=== PATIENT | male | born 1955 | race Caucasian/White ===

== ENCOUNTER 2018-03-06 07:50 | Outpatient (CLI) | payer OTHER | END 2018-03-06 07:51 | disposition home or self-care (01) | LOC: BICCT 07:50 | PROVIDERS: ATTEND Nurse Practitioner Family | DX: R31.9 Hematuria, unspecified (principal); R10.9 Unspecified abdominal pain; Q63.1 Lobulated, fused and horseshoe kidney; K76.89 Other specified diseases of liver | CPT/HCPCS: 74176 ==

== ENCOUNTER 2018-12-12 09:26 | Emergency (ER) | payer MEDICARE ==
[2018-12-12 10:02] LABS: #Basophils 0.1 thou/uL (0.0-0.2); #Eosinphils 0.4 thou/uL (0.0-0.7); #Lymphocytes 1.4 thou/uL (1.20-3.40); #Monocytes 0.9 thou/uL (0.11-0.59); #Neutrophils 5.8 thou/uL (1.40-6.50); %Basophils 0.7 % (0.0-1.0); %Eosinophils 4.2 % (0.0-10.0); %Monocytes 10.7 % (0.0-10.0); %Neutrophils 68.4 % (42.0-75.0); Hemoglobin 15.4 g/dL (14.0-18.0); Mean Corpuscular HGB CONC 33.4 g/dL (32.0-36.0); Mean Corpuscular Hemoglobin 30.4 pg (27.0-31.0); Mean Corpuscular Volume 90.8 fL (78.0-98.0); Mean Platelet Volume 7.5 fL (7.4-10.4); Platelet Count 254 thou/uL (130-400); RBC Distribution Width 11.6 % (11.5-14.5); Red Blood Cell (RBC) Count 5.09 mill/uL (4.70-6.10); White Blood Cell (WBC) Count 8.5 thou/uL (4.8-10.8)
[2018-12-12 10:12] LABS: Anion Gap 13 mmol/L (10-20); BUN (Urea Nitrogen) 9 mg/dL (8.4-25.7); Calc. Creatinine Clearance 0 mL/min (70-130); Calcium 9.9 mg/dL (7.8-10.44); Carbon Dioxide 26 mmol/L (23-31); Chloride 105 mmol/L (98-107); Estimated GFR-MDRD Greater than 90; Glucose 84 mg/dL (80-115); Potassium 4.2 mmol/L (3.5-5.1); Sodium 140 mmol/L (136-145)
[2018-12-12] MEDS ORDERED: Clindamycin 300 MG/2 ML VIAL ONE (10:21)
--- NOTE | 2018-12-12 10:31 | ULT ---
LEFT LOWER EXTREMITY VENOUS DUPEX ULTRASOUND INCLUDING COLOR AND SPECTRAL DOPPLER IMAGING: HISTORY: Left leg pain. TECHNIQUE: Exam performed from groin to ankle, including visualized greater saphenous, common femoral, superfici al femoral, profunda femoral, trifurcation, and posterior tibial vein regions. FINDINGS: Some incidental left groin lymph nodes are noted. There is phasic flow at all levels with normal com pressibility and normal augmentation. IMPRESSION: 1. No intraluminal thrombus. 2. No evidence for deep venous thrombosis. POS: [facility]
== END 2018-12-12 10:42 | disposition home or self-care (01) ==
LOC: SCSER 09:26
DX: L03.116 Cellulitis of left lower limb (principal); I10 Essential (primary) hypertension; F32.9 Major depressive disorder, single episode, unspecified; F17.210 Nicotine dependence, cigarettes, uncomplicated
CPT/HCPCS: 36415; 80048; 83880; 85025; 85652; 86140; 96372; J3490

== ENCOUNTER 2019-01-22 07:34 | Outpatient (CLI) | payer MEDICARE ==
--- NOTE | 2019-01-22 10:43 | PET ---
PET CT: HISTORY: Bladder cancer. COMPARISON: CT abdomen/pelvis dated 12/29/18 and 03/06/18. TECHNIQUE: A PET CT was performed from the skull base through the mid thigh after administration of 11.9 mCi F18 -FDG. FINDINGS: The patient has a horseshoe kidney. There is a conglomerate of enlarged left pelvic side wall lymph nodes. These are hypermetabolic with a max SUV value of 13.7. There is a separate lymph node near the internal inguinal ring on the left w ith a max SUV value of 4.8. There are enlarged left external inguinal lymph nodes which are not hyper metabolic at this time, but appear pathologically enlarged. The max SUV value for these lymph nodes i s 2.0. No suspicious areas of hypermetabolic activity are seen within the neck or chest. No hypermetabolic a ctivity is seen within the liver or within the retroperitoneal abdominal lymph nodes. CT images used for attenuation correction show atherosclerotic calcifications in the aorta. The patie nt is status post cholecystectomy. No suspicious hypermetabolic activity is seen within the skeleton. IMPRESSION: The patient appears to have metastatic disease along the left pelvic side wall and likely extending i nto the left inguinal region. A lymph node near the internal inguinal ring is hypermetabolic. There a re pathologically enlarged lymph nodes near the external inguinal ring in the left inguinal region wh ich are not hypermetabolic but pathologically enlarged. POS: [facility]
== END 2019-01-22 07:35 | disposition home or self-care (01) ==
LOC: PET 07:34
PROVIDERS: ATTEND Internal Medicine Hematology & Oncology
DX: C67.9 Malignant neoplasm of bladder, unspecified (principal); R59.0 Localized enlarged lymph nodes
CPT/HCPCS: 78815; A9552

== ENCOUNTER 2019-01-27 07:24 | Day surgery (SDC) | payer MEDICARE ==
[2019-01-26 09:27] VITALS: BMI 34.0
[2019-01-27 08:46] LABS: #Eosinphils 0.5 thou/uL (0.0-0.7); #Lymphocytes 1.5 thou/uL (1.20-3.40); #Monocytes 0.8 thou/uL (0.11-0.59); #Neutrophils 8.1 thou/uL (1.40-6.50); %Basophils 0.3 % (0.0-1.0); %Eosinophils 4.9 % (0.0-10.0); %Lymphocytes 13.5 % (21.0-51.0); %Monocytes 7.5 % (0.0-10.0); %Neutrophils 73.8 % (42.0-75.0); Hemoglobin 13.9 g/dL (14.0-18.0); Mean Corpuscular HGB CONC 33.3 g/dL (32.0-36.0); Mean Corpuscular Volume 93.3 fL (78.0-98.0); Mean Platelet Volume 6.7 fL (7.4-10.4); Platelet Count 307 thou/uL (130-400); RBC Distribution Width 11.7 % (11.5-14.5); Red Blood Cell (RBC) Count 4.48 mill/uL (4.70-6.10)
[2019-01-27] MEDS ORDERED: Lidocaine 2% PF 5 ML VIAL ONE (09:38)
[2019-01-27] MEDS ORDERED: Bupivacaine/Epinephrine 0.25% 30 ML VIAL ONE (09:38)
[2019-01-27] MEDS ORDERED: Fentanyl 100 MCG/2 ML VIAL ONE ×2 (09:52→11:05)
--- NOTE | 2019-01-27 11:03 | RAD ---
Radiograph chest one view: 01/27/2019 10:48 AM HISTORY: Status post MediPort placement in 63-year-old male. COMPARISON: 1. 08/23/2015 FINDINGS: There is a new vascular access port descending from the supraclavicular right neck vertically oriente d along the right side of the mediastinum, presumably entering right internal jugular vein and within the SVC. Distal tip overlies expected location of mid to lower SVC. No pneumothorax. No consolidatio n, pulmonary edema, or cardiomegaly. IMPRESSION: Right-sided implantable vascular access port placement without evidence of pneumothorax
[2019-01-27] MEDS ORDERED: PROPOFOL 200 MG/20 ML VIAL ONE (11:21)
[2019-01-27] MEDS ORDERED: ePHEDrine 50 MG/ML VIAL ONE (11:21)
[2019-01-27] MEDS ORDERED: Lidocaine 1% PF 5 ML VIAL ONE (11:21)
--- NOTE | 2019-01-27 12:56 | OP ---
DATE OF PROCEDURE: 01/27/2019 PREOPERATIVE DIAGNOSIS: Metastatic bladder cancer. POSTOPERATIVE DIAGNOSIS: Metastatic bladder cancer. PROCEDURE PERFORMED: Tunnelled central line subcutaneous port (MediPort CT injectable). ANESTHESIA: General. ESTIMATED BLOOD LOSS: Minimal. COMPLICATIONS: None. SPECIMENS: None. FINDINGS: The tip of the catheter was at the atriocaval junction. DESCRIPTION OF PROCEDURE: The patient was taken to the operating room and laid supine on the operating room table. After general anesthetic was obtained, bilateral neck and chest were shaved, prepped, and draped in a sterile fashion. A local anesthetic was infiltrated over the right internal jugular vein. Internal jugular vein was obtained using a 22-gauge finder needle followed by Seldinger needle. The wire was passed into the superior vena cava under fluoro guidance. A small khloe was made at the wire entrance site. A separate 4-cm incision was made at the right upper chest. Subcutaneous pocket was made below the lower incision. Tubing for the MediPort and tunneled from the inferior to the superior incision. Suture sheath was placed over the wire into the superior vena cava under fluoro guidance. The dilator and wire were removed. The end of the catheter was sewed into the sheath and the sheath was peeled away. The tip of the catheter was at the atriocaval junction. MediPort tubing cut to fit the MediPort at the lower incision, connected to the MediPort, which was sewn to the chest wall in the subcutaneous pocket using Prolene. The wound was irrigated and closed using 3-0 Vicryl, 4-0 Monocryl, and Dermabond. The patient was sent to Recovery in stable condition. All instrument counts, needle counts, and lap counts were correct. Job ID: [id number]
== END 2019-01-27 12:40 | disposition home or self-care (01) ==
LOC: SDC 07:24
PROVIDERS: ATTEND Surgery
PROC: 0JH63WZ Insertion of Totally Implantable Vascular Access Device into Chest Subcutaneous Tissue and Fascia, Percutaneous Approach (ICD-10-PCS; principal; 2019-01-27)
DX: C67.9 Malignant neoplasm of bladder, unspecified (principal); I10 Essential (primary) hypertension; I25.10 Atherosclerotic heart disease of native coronary artery without angina pectoris; Z79.899 Other long term (current) drug therapy; Z88.2 Allergy status to sulfonamides
CPT/HCPCS: 71045; 85025; C1788; J1642; J2001; J2704; J3010; J3490

== ENCOUNTER 2019-02-11 20:09 | Inpatient (IN) | payer MEDICARE ==
[2019-02-11] MEDS ORDERED: Lidocaine 4% Cream 5 GM TUBE w/ Tegaderm ONE (20:34)
--- NOTE | 2019-02-11 20:47 | RAD ---
PORTABLE CHEST ONE VIEW: 02/11/19 at 8:52 p.m. HISTORY: Fever, recent chemotherapy. FINDINGS: Comparison made to exam of 01/27/19. Right sided Port-A-Cath remains in place. The heart size is stable. Lungs are well expanded without f ocal areas of consolidation, pneumothoraces or pleural effusions. IMPRESSION: No acute process. POS: [facility]
[2019-02-11 21:08] LABS: Hemoglobin 12.7 g/dL (14.0-18.0); Mean Corpuscular HGB CONC 33.4 g/dL (32.0-36.0); Mean Corpuscular Hemoglobin 29.4 pg (27.0-31.0); Mean Platelet Volume 7.1 fL (7.4-10.4); Platelet Count 142 thou/uL (130-400); RBC Distribution Width 10.9 % (11.5-14.5); Red Blood Cell (RBC) Count 4.32 mill/uL (4.70-6.10); White Blood Cell (WBC) Count 35.9 thou/uL (4.8-10.8)
[2019-02-11 21:13] LABS: ALT (SGPT) 32 U/L (8-55); AST (SGOT) 15 U/L (5-34); Albumin 3.5 g/dL (3.4-4.8); Alkaline Phosphatase 76 U/L (40-150); Anion Gap 15 mmol/L (10-20); BUN (Urea Nitrogen) 29 mg/dL (8.4-25.7); Bilirubin, Total 1.4 mg/dL (0.2-1.2); CK (CPK) 10 U/L (30-200); Calc. Creatinine Clearance 0 mL/min (70-130); Carbon Dioxide 23 mmol/L (23-31); Chloride 93 mmol/L (98-107); Estimated GFR-MDRD 48; Globulin 2.6 g/dL (2.4-3.5); Glucose 111 mg/dL (80-115); Potassium 3.9 mmol/L (3.5-5.1); Protein, Total 6.1 g/dL (5.8-8.1); Sodium 127 mmol/L (136-145)
[2019-02-11] MEDS ORDERED: Cefepime 2 GM VIAL ONE (21:28)
[2019-02-11] MEDS ORDERED: Sodium Chloride 0.9% 100 ML ONE (21:28)
[2019-02-11 21:29] LABS: Anisocytosis SLIGHT = 6-15 cells (100X) (0-5/hpf); Band 7 % (5-11); Lymphocytes 4 % (21-51); MDiff Complete? YES; Monocytes 1 % (0-10); Neutrophil 88 % (42-75); Toxic Granulation SLIGHT
[2019-02-11 21:57] LABS: Bilirubin Negative (Negative); Blood, Urine Trace (Negative); Clarity Clear (Clear); Glucose, Urine (Dipstick) 100 mg/dL (Negative); Leukocyte Trace (Negative); Nitrite Negative (Negative); Protein, Urine (Dipstick) 100 mg/dL (Neg-Trace); Specific Gravity, Urine 1.015 (1.005-1.030); Urobilinogen 0.2 mg/dL (0.2-1.0); pH, Urine 5.5 (5.0-9.0)
[2019-02-11 22:02] LABS: Bacteria/HPF None Seen HPF (None Seen); Hyaline Casts/LPF 0-3 HYALINE CAST LPF (0-3 Hyaline); RBC/HPF 0-3 HPF (0-3); Squamous Epithelial 0-3 HPF (0-3); WBC/HPF 0-3 HPF (0-3)
[2019-02-12] MEDS ORDERED: Acetaminophen 325 MG TAB ONE ×2 (03:42→10:24)
[2019-02-12] MEDS ORDERED: Cefepime 2 GM VIAL ONE (09:39)
[2019-02-12] MEDS ORDERED: Sodium Chloride 0.9% 100 ML ONE (09:39)
[2019-02-12] MEDS ORDERED: Ondansetron ODT 8 MG TAB ONE (10:24)
[2019-02-12] MEDS ORDERED: HYDROcodone/Acetaminophen 5/325 mg Tablet PO PRN ×2 (14:46)
[2019-02-12] MEDS ORDERED: Ondansetron PF 4 MG/2 ML Vial IVP PRN (14:46)
[2019-02-12] MEDS ORDERED: Acetaminophen 325 MG TAB PO PRN (14:46)
[2019-02-12] MEDS ORDERED: Ondansetron ODT 4 MG TAB SL PRN (14:46)
[2019-02-12] MEDS ORDERED: Zolpidem Tartrate 5 MG TAB PO PRN (14:47)
[2019-02-12] MEDS ORDERED: HYDROcodone/Acetaminophen 7.5/325 mg Tablet PO PRN (14:47)
[2019-02-12] MEDS ORDERED: VANCOMYCIN IVPB PRN (15:07)
[2019-02-12] MEDS ORDERED: ZOSYN IVPB PRN (15:11)
--- NOTE | 2019-02-12 15:16 | PDOC.EVN ---
Event Note - Event Note Event Note: chemo agents- vinblastine,doxorubicin, cisplatin.
--- NOTE | 2019-02-12 16:12 | HP ---
PRIMARY CARE PHYSICIAN: Supriya Martino, DNP, [employer] in [place]. HISTORY OF PRESENT ILLNESS: The patient is [facility] admission for [facility]. Referred to the [facility] Hospitalist Service for fever. Fever started two days ago, maximum 100.5. He has had no real hard shaking chills, but has been sweating a lot. He has had a nonproductive cough without any shortness of breath. He had nausea and vomiting three times yesterday with no blood. He has had no dysuria or hematuria. He had his 1st chemotherapy for lymphoma 02/06/2019. He is unaware of what chemotherapy he received. We are in the process of requesting that information from MD Abdul. PAST SURGICAL HISTORY: Chronic hypertension, depression, history of bladder cancer 3 years ago with a tumor resected. He received BCG treatment. He has a recent diagnosis of lymphoma diagnosed on biopsy of lymph nodes in the left groin. In addition, he has had a cholecystectomy. ALLERGIES: HE IS ALLERGIC TO SULFA, WHICH CAUSES NAUSEA AND VOMITING. CURRENT MEDICINES: 1. Bupropion 150 b.i.d. 2. Oxybutynin 5 mg three times a day. 3. Coreg 12.5 mg daily. 4. Seroquel 50 mg daily. 5. Diclofenac 50 mg daily. 6. Zofran oral dissolving tablets 8 mg p.o. q.6 hours p.r.n. FAMILY HISTORY: Mother with breast cancer. Father at 79 with coronary artery disease. The patient is . Full code. Daughter, Brigida Ibarra is next of kin. He smokes one pack of cigarettes a day and drinks a 6 pack of Natty Light a day. REVIEW OF SYSTEMS: GENERAL: Recently, he has had some dizziness when rising. No fainting. EYES: No double vision, blurred vision, flashing lights. EAR, NOSE, AND THROAT: No ear pain or drainage. No nasal bleeding. No trouble swallowing. CARDIAC: No chest pain, orthopnea, or paroxysmal nocturnal dyspnea. RESPIRATION: Recent cough. No wheezing, asthma. GASTROINTESTINAL: Nausea and vomiting x3 yesterday. No abdominal pain or diarrhea. GENITOURINARY: No hematuria or dysuria. MUSCULOSKELETAL: He has had swelling in his left leg, which is considered due to the lymphatic drainage or blockage in his left leg. NEUROLOGICAL: No strokes, seizures, or focal weakness. PSYCHIATRIC: He takes a depression pill. Per his list of medicines, he takes two. I asked him how his depression was doing right now and he said "well I've cancer ", so I assume that means he is having a little trouble. SKIN: No bruising, bleeding, or rash. HEME/LYMPH: Lymph nodes in the left groin, recently biopsied lymphoma. PHYSICAL EXAMINATION: VITAL SIGNS: Blood pressure 141/86 pulse 91, temperature of 100.3, respirations 19. HEAD, EYES, EARS, NOSE, AND THROAT: Reveal pupils are equal, round, and reactive. Extraocular movements are intact. Sclerae are white. Tympanic membranes are clear. Nose is clear. Oral mucous membranes are wet. He has many missing teeth. NECK: No jugular venous distention, adenopathy, or thyromegaly. CHEST: Clear to auscultation and percussion. HEART: Had regular rate and rhythm. First and second heart sounds are clear. There are no murmurs or gallops. ABDOMEN: Soft. Bowel sounds are normal. No hepatosplenomegaly. No mass. No rebound. EXTREMITIES: Reveal trace edema on the left, none on the right leg. No cyanosis or clubbing. SKIN: No bruising, bleeding, or rash. HEME/LYMPH: He gives a history of lymphatic nodes in the left inguinal area. I am unable to detect any at the present time, none on the right, none in the axilla, none in the neck. NEUROLOGIC: Cranial nerves 2-12 intact. Moves all extremities. IMAGING: EKG; none has been done. We will obtain one. Chest x-ray; no cardiomegaly, CHF, or infiltrate. It is underpenetrated film reviewed by me. LABORATORY DATA: Sodium 127, potassium 3.9, chloride 93, CO2 of 23, BUN 29, creatinine 1.46, glucose 111, lactic acid 1.0, bilirubin 1.4, AST 15, ALT 32. Urine has 0 to 3 white cells and a trace leukocyte esterase. White cell count is 35, 900 with an absolute neutrophilia, hemoglobin is 12.7, platelet count is a 142,000. ADMITTING DIAGNOSES: Fever, marked leukocytosis, recent diagnosis of lymphoma post first round of chemotherapy, hypertension, acute renal failure, depression. PLAN: Blood and urine cultures have been obtained. There is no obvious source of infection on this gentleman at this time. The usual antibiotics for unknown source will be started, Zosyn and vancomycin. Vancomycin trough will be followed by pharmacology. CBC will be repeated daily x2. Basic metabolic profile will be repeated in the morning. IV fluids will be given. Home medications will be continued, and as mentioned before, details of his chemotherapy have been requested from [facility]. Job ID: [id number] MTDD
[2019-02-12] MEDS: Sodium Chloride 0.9% 1,000 ML IV SCH ×3 (16:45→23:35)
[2019-02-12] MEDS: Acetaminophen 325 MG TAB PO PRN ×2 (16:46→23:33)
[2019-02-12] MEDS: Oxybutynin 5 MG TAB PO SCH ×2 (16:46→21:02)
[2019-02-12] MEDS: Piperacillin/Tazobactam 4.5 GM in Sodium Chloride 0.9% 100 ML IVPB SCH ×2 (16:47→23:33)
[2019-02-12] MEDS: Bupropion 150 MG SR TAB PO SCH (21:02)
[2019-02-12] MEDS: Vancomycin HCl 1 GM in Premix Bag 1 BAG IVPB SCH (21:02)
[2019-02-12] MEDS ORDERED: Vancomycin HCl 1 GM in Sodium Chloride 0.9% 250 ML 300 ML IVPB SCH (22:00)
[2019-02-13] MEDS: Sodium Chloride 0.9% 1,000 ML IV SCH ×4 (05:52→22:15)
[2019-02-13] MEDS: Piperacillin/Tazobactam 4.5 GM in Sodium Chloride 0.9% 100 ML IVPB SCH ×4 (05:52→23:57)
[2019-02-13 06:38] LABS: Anion Gap 13 mmol/L (10-20); BUN (Urea Nitrogen) 32 mg/dL (8.4-25.7); Calc. Creatinine Clearance 0 mL/min (70-130); Calcium 8.7 mg/dL (7.8-10.44); Carbon Dioxide 27 mmol/L (23-31); Chloride 92 mmol/L (98-107); Estimated GFR-MDRD 33; Glucose 95 mg/dL (80-115); Potassium 3.2 mmol/L (3.5-5.1); Sodium 129 mmol/L (136-145)
[2019-02-13] MEDS: Acetaminophen 325 MG TAB PO PRN (06:45)
[2019-02-13 07:35] VITALS: BMI 34.0
[2019-02-13] MEDS: Ondansetron ODT 4 MG TAB PO PRN (08:06)
[2019-02-13] MEDS ORDERED: Acetaminophen 500 MG TAB PO PRN (08:24)
[2019-02-13] MEDS ORDERED: Ondansetron PF 4 MG/2 ML Vial IVP PRN (08:24)
[2019-02-13] MEDS ORDERED: hydrALAZINE 20 MG/ML VIAL SLOW IVP PRN (08:24)
[2019-02-13] MEDS ORDERED: Artificial Tear Sol 15 ML BOT EA EYE PRN (08:24)
[2019-02-13] MEDS ORDERED: Loratadine 10 MG TAB PO PRN (08:24)
[2019-02-13] MEDS ORDERED: Cepastat Lozenges 1 LOZ PO PRN (08:24)
[2019-02-13] MEDS ORDERED: Sodium Chloride 0.65% Nasal 44 ML BOT EA NARE PRN (08:24)
[2019-02-13] MEDS ORDERED: Eucerin (Mineral Oil/Petrolatum,White) 30 gm Jar TOP PRN (08:24)
[2019-02-13] MEDS ORDERED: HYDROcodone/Acetaminophen 5/325 mg Tablet PO PRN (08:24)
[2019-02-13] MEDS ORDERED: Diabetic Tussin 200 MG/10 ML UDCUP PO PRN (08:24)
[2019-02-13 08:42] LABS: Band 3 % (5-11); Eosinophils 2 % (0-10); Hemoglobin 11.9 g/dL (14.0-18.0); Lymphocytes 10 % (21-51); MDiff Complete? YES; Mean Corpuscular HGB CONC 34.4 g/dL (32.0-36.0); Mean Corpuscular Hemoglobin 31.5 pg (27.0-31.0); Mean Corpuscular Volume 91.6 fL (78.0-98.0); Mean Platelet Volume 7.9 fL (7.4-10.4); Monocytes 1 % (0-10); Neutrophil 83 % (42-75); Platelet Count 105 thou/uL (130-400); Platelet Morphology Comment Appears Decreased; Polychromasia SLIGHT = 2-3 cells (100X) (0-2/hpf); RBC Distribution Width 11.2 % (11.5-14.5); Reactive Lymphocytes 1 % (0-10); Red Blood Cell (RBC) Count 3.77 mill/uL (4.70-6.10)
[2019-02-13] MEDS ORDERED: Enoxaparin Sodium 40 MG/0.4 ML SYRINGE SC SCH (09:00)
[2019-02-13 09:13] LABS: Magnesium 1.5 mg/dL (1.6-2.6); Phosphorus 3.6 mg/dL (2.3-4.7)
[2019-02-13] MEDS: Carvedilol 6.25 MG TAB PO SCH (09:55)
[2019-02-13] MEDS: Bupropion 150 MG SR TAB PO SCH ×2 (09:55→20:24)
[2019-02-13] MEDS: Oxybutynin 5 MG TAB PO SCH ×2 (09:56→15:29)
[2019-02-13] MEDS: Saccharomyces boulardii 250 MG CAP PO SCH (09:58)
[2019-02-13] MEDS ORDERED: Magnesium Sulfate 3 GM in Sodium Chloride 0.9% 100 ML IVPB SCH (10:15)
[2019-02-13 11:03] LABS: Vancomycin, Trough 13.3 ug/mL
[2019-02-13] MEDS: Vancomycin HCl 1 GM in Premix Bag 1 BAG IVPB SCH ×2 (11:13→22:11)
--- NOTE | 2019-02-13 12:46 | PDOC.PN ---
- Subjective Encounter Start Date: 02/13/19 Encounter Start Time: 08:25 -: old records requested/rev Patient seen and examined. No new complaints. No overnight events - Objective Resuscitation Status - Order Detail: 02/12/19 14:47 Resuscitation Status Routine Resuscitation Status: FULL: Full Resuscitation Additional comments: next of kin-Brigida REYES Reviewed: Yes Vital Signs & Weight: Vital Signs (12 hours) Temp Pulse Resp BP Pulse Ox 02/13/19 12:00 98.3 F 76 20 96/58 L 99 02/13/19 08:00 96 02/13/19 07:20 99.8 F H 83 18 129/64 96 02/13/19 04:00 100.3 F H 75 18 130/67 98 02/13/19 01:06 98.4 F Weight Weight 230 lb Result Diagrams: 02/13/19 05:20 02/13/19 05:20 Phys Exam - Physical Examination Constitutional: NAD HEENT: PERRLA, moist MMs, sclera anicteric Neck: no JVD, supple Respiratory: no wheezing, no rales, no rhonchi Cardiovascular: RRR, no significant murmur, no rub Gastrointestinal: soft, non-tender, no distention Musculoskeletal: no edema, pulses present Neurological: non-focal, normal sensation, moves all 4 limbs Psychiatric: normal affect, A&O x 3 Skin: no rash, normal turgor Dx/Plan (1) Acute kidney failure Status: Acute (2) Hypokalemia Code(s): E87.6 - HYPOKALEMIA Status: Acute (3) Hypomagnesemia Code(s): E83.42 - HYPOMAGNESEMIA Status: Acute (4) Hyponatremia Code(s): E87.1 - HYPO-OSMOLALITY AND HYPONATREMIA Status: Acute (5) Sepsis Code(s): A41.9 - SEPSIS, UNSPECIFIED ORGANISM Status: Acute (6) Alcohol abuse Code(s): F10.10 - ALCOHOL ABUSE, UNCOMPLICATED Status: Chronic (7) Anxiety and depression Code(s): F41.9 - ANXIETY DISORDER, UNSPECIFIED; F32.9 - MAJOR DEPRESSIVE DISORDER, SINGLE EPISODE, UNSPECIFIED Status: Chronic (8) Hypertension Code(s): I10 - ESSENTIAL (PRIMARY) HYPERTENSION Status: Chronic (9) Lymphoma Status: Chronic (10) Obesity (BMI 30.0-34.9) Code(s): E66.9 - OBESITY, UNSPECIFIED Status: Chronic (11) Tobacco abuse Code(s): Z72.0 - TOBACCO USE Status: Chronic - Plan cont current plan of care, continue antibiotics * medication reviewed as below * symptomatic treatment * continue iv antibiotics * replace potassium and magnesium * continue IVf * follow culture * consult oncology. Review of Systems - Review of Systems ENT: negative: Ear Pain, Ear Discharge, Nose Pain, Nose Discharge, Nose Congestion, Mouth Pain, Mouth Swelling, Throat Pain, Throat Swelling, Other Respiratory: negative: Cough, Dry, Shortness of Breath, Hemoptysis, SOB with Excertion, Pleuritic Pain, Sputum, Wheezing Cardiovascular: negative: chest pain, palpitations, orthopnea, paroxysmal nocturnal dyspnea, edema, light headedness, other Gastrointestinal: negative: Nausea, Vomiting, Abdominal Pain, Diarrhea, Constipation, Melena, Hematochezia, Other Genitourinary: negative: Dysuria, Frequency, Incontinence, Hematuria, Retention , Other Musculoskeletal: negative: Neck Pain, Shoulder Pain, Arm Pain, Back Pain, Hand Pain, Leg Pain, Foot Pain, Other Skin: negative: Rash, Lesions, Balta, Bruising, Other - Medications/Allergies Allergies/Adverse Reactions: Allergies Allergy/AdvReac Type Severity Reaction Status Date / Time Sulfa (Sulfonamide Allergy Verified 01/26/19 09:28 Antibiotics) Medications: Current Medications Acetaminophen (Tylenol) 650 mg PO Q4H PRN PRN Reason: Headache/Fever/Mild Pain (1-3) Last Admin: 02/13/19 06:45 Dose: 650 mg Acetaminophen (Tylenol) 1,000 mg PO Q4H PRN PRN Reason: Fever > 101 Hydrocodone Bitart/Acetaminophen ([place] 7.5/325) 1 tab PO Q4H PRN PRN Reason: Moderate Pain (4-6) Hydrocodone Bitart/Acetaminophen ([place] 5/325) 1 tab PO Q4H PRN PRN Reason: Moderate Pain (4-6) Artificial Tears (Liquitears 15ml Bottle) 2 drop EA EYE PRN PRN PRN Reason: Dry Eyes Bupropion HCl (Wellbutrin Sr) 150 mg PO BID [facility] Last Admin: 02/13/19 09:55 Dose: 150 mg Carvedilol (Coreg) 12.5 mg PO DAILY [facility] Last Admin: 02/13/19 09:55 Dose: 12.5 mg Enoxaparin Sodium (Lovenox) 40 mg SC 0900 [facility] Last Admin: 02/13/19 09:59 Dose: 40 mg Guaifenesin (Robitussin Sf) 200 mg PO Q4H PRN PRN Reason: Cough Hydralazine HCl (Apresoline) 10 mg SLOW IVP Q4H PRN PRN Reason: SBP > 180 and HR < 70 Sodium Chloride (Normal Saline 0.9%) 1,000 mls @ 125 mls/hr IV .Q8H [facility] Last Admin: 02/13/19 05:52 Dose: 1,000 mls Piperacillin Sod/Tazobactam (Sod 4.5 gm/ Sodium Chloride) 100 mls @ 200 mls/hr IVPB Q6HR [facility] Last Admin: 02/13/19 05:52 Dose: 100 mls Vancomycin HCl 1 gm/ Device 200 mls @ 200 mls/hr IVPB 1000,2200 [facility] Last Admin: 02/13/19 11:13 Dose: 200 mls Potassium Chloride 20 meq/ (Device) 100 mls @ 50 mls/hr IVPB Q8H [facility] Stop: 02/14/19 02:59 Loratadine (Claritin) 10 mg PO DAILYPRN PRN PRN Reason: Sinus Symptoms Last Admin: 02/13/19 09:56 Dose: 10 mg Mineral Oil/White Petrolatum (Eucerin Cream) 0 gm TOP BIDPRN PRN PRN Reason: Dry Skin Miscellaneous Medication (Pharmacy To Dose) 0 each IVPB PRN PRN PRN Reason: Pharmacy to dose:VANCOMYCIN Miscellaneous Medication (Pharmacy To Dose) 0 each IVPB PRN PRN PRN Reason: Pharmacy to dose:ZOSYN Ondansetron HCl (Zofran Odt) 4 mg PO Q6H PRN PRN Reason: Nausea/Vomiting Last Admin: 02/13/19 08:06 Dose: 4 mg Ondansetron HCl (Zofran) 4 mg IVP Q6H PRN PRN Reason: Nausea/Vomiting Oxybutynin Chloride (Ditropan) 5 mg PO TID [facility] Last Admin: 02/13/19 09:56 Dose: 5 mg Quetiapine Fumarate (Seroquel) 50 mg PO DAILY [facility] Last Admin: 02/13/19 09:55 Dose: 50 mg Saccharomyces Boulardii (Florastor) 250 mg PO DAILY [facility] Last Admin: 02/13/19 09:58 Dose: 250 mg Sodium Chloride ([place] Nasal [place] 0.65%) 0 ml EA NARE QIDPRN PRN PRN Reason: Nasal Congestion Throat Lozenges (Cepastat Lozenges) 1 fernando PO Q2H PRN PRN Reason: Sore Throat Zolpidem Tartrate (Ambien) 5 mg PO HSPRN PRN PRN Reason: Insomnia
[2019-02-13] MEDS: Potassium Chloride 20 MEQ in Premix Bag 1 BAG IVPB SCH ×2 (13:26→17:58)
[2019-02-13] MEDS: Docusate 100 MG CAP PO SCH (20:24)
--- NOTE | 2019-02-13 21:52 | CON ---
DATE OF CONSULTATION: REASON FOR CONSULT: Bladder cancer and leukocytosis. HISTORY OF PRESENT ILLNESS: Mr. Sullivan is a 63-year-old gentleman with a history of bladder cancer, who presented to his urologist in December with left lower extremity pain and edema. His CT scan showed enlarged inguinal lymph node and hydronephrosis. He had an IR-guided lymph node biopsy, which showed metastatic carcinoma of the urothelial origin. The patient went to [facility] for further treatment. He apparently received his 1st chemotherapy cycle on February 06, consisted of vinblastine, doxorubicin, and cisplatin. He states he did receive the Neulasta injection after chemotherapy. Over the last several days, he has gotten progressively weaker and had some shaking chills and a nonproductive cough. He presented to the emergency room for evaluation. In the emergency room on the , his white count was 35.9. He had 88% neutrophils and 7% bands. His hemoglobin was 12.7, his platelet count was 142, his temperature was 100.5. He has been started on empiric antibiotics. We are asked to see the patient regarding his leukocytosis. PAST MEDICAL HISTORY: 1. Bladder cancer diagnosed in 2016, status post TURBT and maintenance BCG. 2. Hypertension. 3. Anxiety and depression. PAST SURGICAL HISTORY: 1. Bladder. 2. Kidney. 3. Gallbladder. ALLERGIES: TO SULFA. HOME MEDICATIONS: 1. Zyban b.i.d. 2. Coreg 12.5 mg daily. 3. Diclofenac 50 mg daily. 4. Zofran p.r.n. 5. Oxybutynin 5 mg t.i.d. 6. Seroquel daily. FAMILY HISTORY: Mother with breast cancer. SOCIAL HISTORY: , has 3 children. Fifty-one pack-year history of smoking. Social drinker. No illicit drug use. REVIEW OF SYSTEMS: CONSTITUTIONAL: Positive for fever, chills, night sweats, fatigue, and weight loss. EYES: No blurred or double vision. ENT: No pain, hoarseness, sore throat, or dysphagia. CV: No chest pain, palpitations, or syncope. RESPIRATORY: No shortness of breath, dyspnea on exertion, or orthopnea. GI: Positive for nausea, vomiting. No diarrhea, constipation, or abdominal pain. : Positive for flank pain. SKIN: Positive for rash and itching. NEUROLOGICAL: Positive for weakness. No headache, numbness, tingling, or seizure activity. PSYCH: Positive for depression and insomnia. PHYSICAL EXAMINATION: VITAL SIGNS: Temperature is 98.3 with a T-max of a 100.9, pulse is 76, respiratory rate 20, BP is 96/58. He is 99% on room air. GENERAL: This is a well-developed, well-nourished male, in no acute distress. HEENT: Normocephalic, atraumatic. Pupils are equal and reactive to light. NECK: Supple. CV: Regular rate and rhythm. LUNGS: Clear. ABDOMEN: Soft and nontender. Bowel sounds are positive. EXTREMITIES: No clubbing, cyanosis, or edema. SKIN: No rash. HEMATOLOGICAL: No petechiae or purpura. NEUROLOGIC: Nonfocal. PERTINENT LABS AND X-RAYS: Current WBCs are 11.0. He has got 83% neutrophils, 3% bands, 2% lymphocytes. Hemoglobin 11.9, hematocrit 34.6, platelet count is 105, 000. Sodium is 129, potassium 3.2, chloride 92, CO2 is 27, BUN is 32, creatinine 2.02, lactic acid is 1.3, calcium 8.7, phosphorus 3.6, magnesium 1.5, bilirubin is 1.4 , AST is 15, ALT is 32, alkaline phosphatase is 76. Troponin is negative. Serum total protein is 6.1, albumin 3.5, globulin 2.6. Urine was negative for bacteria. Blood culture and urine have been negative. ASSESSMENT: 1. Stage IV bladder cancer, status post cycle 1 of chemotherapy and Neulasta support. 2. Leukocytosis secondary to Neulasta. 3. Febrile illness. DISCUSSION: The patient is one week post cycle 1 of chemotherapy, now with low- grade fever. He has been started on empiric antibiotics. All cultures have been negative, but would continue antibiotics for a total of 5 days. We would recommend continuing IV fluids for hydration support as his creatinine is slightly elevated from baseline. His leukocytosis is most likely from Neulasta as he is 7 days out from chemotherapy, which will be consistent with the timeframe for Neulasta begin working. I expect his platelets to drop slightly over the next few days. His next chemotherapy is next Saturday. He can be discharged once his fever is gone for 24 hours. Follow-up with his Oncologist at [facility]. Thank you for the consult. We will follow his hospital course. Job ID: [id number] [facility]
[2019-02-14] MEDS: Potassium Chloride 20 MEQ in Premix Bag 1 BAG IVPB SCH (01:14)
[2019-02-14] MEDS: Piperacillin/Tazobactam 4.5 GM in Sodium Chloride 0.9% 100 ML IVPB SCH (05:17)
[2019-02-14 06:28] LABS: ALT (SGPT) 16 U/L (8-55); AST (SGOT) 10 U/L (5-34); Albumin 2.9 g/dL (3.4-4.8); Alkaline Phosphatase 63 U/L (40-150); Anion Gap 11 mmol/L (10-20); BUN (Urea Nitrogen) 31 mg/dL (8.4-25.7); Calc. Creatinine Clearance 45 mL/min (70-130); Calcium 8.6 mg/dL (7.8-10.44); Carbon Dioxide 27 mmol/L (23-31); Chloride 95 mmol/L (98-107); Estimated GFR-MDRD 27; Globulin 2.6 g/dL (2.4-3.5); Glucose 96 mg/dL (80-115); Protein, Total 5.5 g/dL (5.8-8.1); Sodium 130 mmol/L (136-145)
[2019-02-14 06:36] LABS: Band 4 % (5-11); Eosinophils 3 % (0-10); Lymphocytes 16 % (21-51); MDiff Complete? YES; Mean Corpuscular HGB CONC 35.4 g/dL (32.0-36.0); Mean Corpuscular Hemoglobin 31.6 pg (27.0-31.0); Mean Corpuscular Volume 89.4 fL (78.0-98.0); Mean Platelet Volume 8.2 fL (7.4-10.4); Monocytes 6 % (0-10); Neutrophil 71 % (42-75); Platelet Count 93 thou/uL (130-400); Platelet Morphology Comment Appears Decreased; RBC Distribution Width 11.1 % (11.5-14.5); Red Blood Cell (RBC) Count 3.48 mill/uL (4.70-6.10); White Blood Cell (WBC) Count 3.2 thou/uL (4.8-10.8)
[2019-02-14] MEDS: Sodium Chloride 0.9% 1,000 ML IV SCH (07:04)
[2019-02-14] MEDS ORDERED: Potassium Chloride 20 MEQ TAB PO SCH (08:00)
[2019-02-14] MEDS: Carvedilol 6.25 MG TAB PO SCH (08:21)
[2019-02-14] MEDS: Saccharomyces boulardii 250 MG CAP PO SCH (08:21)
[2019-02-14] MEDS: Bupropion 150 MG SR TAB PO SCH ×2 (08:21→20:21)
[2019-02-14] MEDS: Docusate 100 MG CAP PO SCH ×2 (08:21→20:22)
[2019-02-14 08:25] LABS: Uric Acid 4.7 mg/dL (3.5-7.2)
[2019-02-14] MEDS ORDERED: Enoxaparin Sodium 30 MG/0.3 ML SYRINGE SC SCH (09:00)
--- NOTE | 2019-02-14 10:26 | PDOC.PN ---
- Subjective Encounter Start Date: 02/14/19 Encounter Start Time: 09:20 Patient seen and examined. No new complaints. No overnight events - Objective Resuscitation Status - Order Detail: 02/12/19 14:47 Resuscitation Status Routine Resuscitation Status: FULL: Full Resuscitation Additional comments: next of kin-Brigida REYES Reviewed: Yes Vital Signs & Weight: Vital Signs (12 hours) Temp Pulse Resp BP Pulse Ox 02/14/19 08:00 99.4 F 73 20 114/69 97 02/14/19 04:00 99.8 F H 02/14/19 00:04 99.9 F H 73 18 118/67 97 Weight Weight 230 lb I&O: 02/13/19 02/14/19 02/15/19 06:59 06:59 06:59 Intake Total 1368 Balance 1368 Result Diagrams: 02/14/19 05:42 02/14/19 05:42 Phys Exam - Physical Examination Constitutional: NAD HEENT: PERRLA, moist MMs, sclera anicteric Neck: no JVD, supple Respiratory: no wheezing, no rales, no rhonchi Cardiovascular: RRR, no significant murmur, no rub Gastrointestinal: soft, non-tender, no distention, positive bowel sounds Musculoskeletal: no edema, pulses present Neurological: non-focal, normal sensation Lymphatic: no nodes Psychiatric: normal affect, A&O x 3 Skin: no rash, normal turgor Dx/Plan (1) Acute kidney failure Status: Acute (2) Hypokalemia Code(s): E87.6 - HYPOKALEMIA Status: Acute (3) Hypomagnesemia Code(s): E83.42 - HYPOMAGNESEMIA Status: Resolved (4) Hyponatremia Code(s): E87.1 - HYPO-OSMOLALITY AND HYPONATREMIA Status: Acute (5) Sepsis Code(s): A41.9 - SEPSIS, UNSPECIFIED ORGANISM Status: Acute (6) Alcohol abuse Code(s): F10.10 - ALCOHOL ABUSE, UNCOMPLICATED Status: Chronic (7) Anxiety and depression Code(s): F41.9 - ANXIETY DISORDER, UNSPECIFIED; F32.9 - MAJOR DEPRESSIVE DISORDER, SINGLE EPISODE, UNSPECIFIED Status: Chronic (8) Hypertension Code(s): I10 - ESSENTIAL (PRIMARY) HYPERTENSION Status: Chronic (9) Lymphoma Status: Chronic (10) Obesity (BMI 30.0-34.9) Code(s): E66.9 - OBESITY, UNSPECIFIED Status: Chronic (11) Tobacco abuse Code(s): Z72.0 - TOBACCO USE Status: Chronic - Plan cont current plan of care, continue antibiotics * DC vancomycin * get renal US * check urine sodium, creatinine and protein * creatinine is going up, suspecting chemo side effect * repeat labs tomorrow * replace potassium * change UVF 1/2 NS with KCL at 100 ml per hour * medication reviewed as below * symptomatic treatment. Review of Systems - Review of Systems ENT: negative: Ear Pain, Ear Discharge, Nose Pain, Nose Discharge, Nose Congestion, Mouth Pain, Mouth Swelling, Throat Pain, Throat Swelling, Other Respiratory: negative: Cough, Dry, Shortness of Breath, Hemoptysis, SOB with Excertion, Pleuritic Pain, Sputum, Wheezing Cardiovascular: negative: chest pain, palpitations, orthopnea, paroxysmal nocturnal dyspnea, edema, light headedness, other Gastrointestinal: negative: Nausea, Vomiting, Abdominal Pain, Diarrhea, Constipation, Melena, Hematochezia, Other Genitourinary: negative: Dysuria, Frequency, Incontinence, Hematuria, Retention , Other Musculoskeletal: negative: Neck Pain, Shoulder Pain, Arm Pain, Back Pain, Hand Pain, Leg Pain, Foot Pain, Other - Medications/Allergies Allergies/Adverse Reactions: Allergies Allergy/AdvReac Type Severity Reaction Status Date / Time Sulfa (Sulfonamide Allergy Verified 01/26/19 09:28 Antibiotics) Medications: Current Medications Acetaminophen (Tylenol) 650 mg PO Q4H PRN PRN Reason: Headache/Fever/Mild Pain (1-3) Last Admin: 02/13/19 06:45 Dose: 650 mg Acetaminophen (Tylenol) 1,000 mg PO Q4H PRN PRN Reason: Fever > 101 Hydrocodone Bitart/Acetaminophen ([employer] 7.5/325) 1 tab PO Q4H PRN PRN Reason: Moderate Pain (4-6) Hydrocodone Bitart/Acetaminophen ([employer] 5/325) 1 tab PO Q4H PRN PRN Reason: Moderate Pain (4-6) Artificial Tears (Liquitears 15ml Bottle) 2 drop EA EYE PRN PRN PRN Reason: Dry Eyes Bupropion HCl (Wellbutrin Sr) 150 mg PO BID [facility] Last Admin: 02/14/19 08:21 Dose: 150 mg Carvedilol (Coreg) 12.5 mg PO DAILY [facility] Last Admin: 02/14/19 08:21 Dose: 12.5 mg Docusate Sodium (Colace) 100 mg PO BID [facility] Last Admin: 02/14/19 08:21 Dose: 100 mg Enoxaparin Sodium (Lovenox) 30 mg SC 0900 [facility] Guaifenesin (Robitussin Sf) 200 mg PO Q4H PRN PRN Reason: Cough Hydralazine HCl (Apresoline) 10 mg SLOW IVP Q4H PRN PRN Reason: SBP > 180 and HR < 70 Piperacillin Sod/Tazobactam (Sod 3.375 gm/ Sodium Chloride) 100 mls @ 200 mls/ hr IVPB Q6HR [facility] Potassium Chloride/Sodium Chloride (1/2 Ns W/Kcl 20 Meq) 1,000 mls @ 100 mls/ hr IV .Q10H [facility] Loratadine (Claritin) 10 mg PO DAILYPRN PRN PRN Reason: Sinus Symptoms Last Admin: 02/13/19 09:56 Dose: 10 mg Mineral Oil/White Petrolatum (Eucerin Cream) 0 gm TOP BIDPRN PRN PRN Reason: Dry Skin Ondansetron HCl (Zofran Odt) 4 mg PO Q6H PRN PRN Reason: Nausea/Vomiting Last Admin: 02/13/19 08:06 Dose: 4 mg Ondansetron HCl (Zofran) 4 mg IVP Q6H PRN PRN Reason: Nausea/Vomiting Quetiapine Fumarate (Seroquel) 50 mg PO [facility] Saccharomyces Boulardii (Florastor) 250 mg PO DAILY [facility] Last Admin: 02/14/19 08:21 Dose: 250 mg Sodium Chloride ([place] Nasal [place] 0.65%) 0 ml EA NARE QIDPRN PRN PRN Reason: Nasal Congestion Throat Lozenges (Cepastat Lozenges) 1 fernando PO Q2H PRN PRN Reason: Sore Throat Zolpidem Tartrate (Ambien) 5 mg PO HSPRN PRN PRN Reason: Insomnia
--- NOTE | 2019-02-14 11:16 | ULT ---
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 Right renal moiety measures about 11.9 cm and demo nstrates no evidence for hydronephrosis or mass. Left renal moiety measures about 14.6 cm in craniocaudal dimension and demonstrates no evidence for hydronephrosis or mass. The urinary bladder a ppears sonographically unremarkable. Linear focus of altered echogenicity within the urinary bladder presumably reflects stent. IMPRESSION: No evidence for hydronephrosis.
[2019-02-14] MEDS: 1/2 NS w/KCL 20 mEq 1,000 ML IV SCH ×2 (11:29→17:47)
[2019-02-14] MEDS: Piperacillin/Tazobactam 3.375 GM in Sodium Chloride 0.9% 100 ML IVPB SCH ×2 (11:32→18:31)
[2019-02-14 12:10] LABS: Creatinine, Urine 48.36 mg/dL (63-166)
[2019-02-14] MEDS: Ondansetron ODT 4 MG TAB PO PRN (14:28)
--- NOTE | 2019-02-14 20:25 | ULT ---
Venous duplex sonogram bilateral lower extremities HISTORY: Bilateral leg pain and edema. FINDINGS: Each common femoral vein and greater saphenous junction were evaluated along with the each femoral, deep femoral, popliteal, and posterior tibial vein. There is good color and spectral Doppler flow, compression, and augmentation. IMPRESSION: No sonographic evidence of DVT within either lower extremity.
[2019-02-15] MEDS: Piperacillin/Tazobactam 3.375 GM in Sodium Chloride 0.9% 100 ML IVPB SCH ×5 (00:34→23:51)
[2019-02-15] MEDS: 1/2 NS w/KCL 20 mEq 1,000 ML IV SCH (05:04)
[2019-02-15 06:10] LABS: #Lymphocytes 0.6 thou/uL (1.20-3.40); #Monocytes 0.2 thou/uL (0.11-0.59); #Neutrophils 1.2 thou/uL (1.40-6.50); %Basophils 0.5 % (0.0-1.0); %Eosinophils 2.1 % (0.0-10.0); %Lymphocytes 30.4 % (21.0-51.0); %Monocytes 8.7 % (0.0-10.0); %Neutrophils 58.4 % (42.0-75.0); Hemoglobin 11.1 g/dL (14.0-18.0); Mean Corpuscular HGB CONC 34.1 g/dL (32.0-36.0); Mean Corpuscular Volume 90.9 fL (78.0-98.0); Mean Platelet Volume 8.4 fL (7.4-10.4); Platelet Count 91 thou/uL (130-400); RBC Distribution Width 11.2 % (11.5-14.5); Red Blood Cell (RBC) Count 3.58 mill/uL (4.70-6.10)
[2019-02-15 06:29] LABS: Anion Gap 15 mmol/L (10-20); BUN (Urea Nitrogen) 27 mg/dL (8.4-25.7); Calc. Creatinine Clearance 52 mL/min (70-130); Calcium 8.8 mg/dL (7.8-10.44); Carbon Dioxide 21 mmol/L (23-31); Chloride 98 mmol/L (98-107); Estimated GFR-MDRD 32; Glucose 98 mg/dL (80-115); Potassium 3.2 mmol/L (3.5-5.1); Sodium 131 mmol/L (136-145)
[2019-02-15] MEDS: Bupropion 150 MG SR TAB PO SCH ×2 (07:43→20:44)
[2019-02-15] MEDS: Carvedilol 6.25 MG TAB PO SCH (07:43)
[2019-02-15] MEDS: Docusate 100 MG CAP PO SCH ×2 (07:43→20:44)
[2019-02-15] MEDS: Saccharomyces boulardii 250 MG CAP PO SCH (07:43)
[2019-02-15] MEDS ORDERED: Potassium Chloride 20 MEQ TAB PO SCH (08:15)
--- NOTE | 2019-02-15 09:04 | PDOC.PN ---
- Subjective Encounter Start Date: 02/15/19 Encounter Start Time: 08:35 Patient seen and examined. No overnight events pt has left leg swelling, DVT negative today has nausea, renal function improving - Objective Resuscitation Status - Order Detail: 02/12/19 14:47 Resuscitation Status Routine Resuscitation Status: FULL: Full Resuscitation Additional comments: next of kin-Brigida REYES Reviewed: Yes Vital Signs & Weight: Vital Signs (12 hours) Temp Pulse Resp BP Pulse Ox 02/15/19 08:51 98.6 F 49 L 18 98/65 97 02/15/19 08:00 99 02/15/19 04:21 98.9 F 02/15/19 00:00 100.2 F H Weight Weight 230 lb I&O: 02/14/19 02/15/19 02/16/19 06:59 06:59 06:59 Intake Total 1368 2540 360 Balance 1368 2540 360 Result Diagrams: 02/15/19 04:54 02/15/19 04:54 Radiology Reviewed by me: Yes Phys Exam - Physical Examination Constitutional: NAD HEENT: PERRLA, moist MMs, sclera anicteric Neck: no JVD, supple Respiratory: no wheezing, no rales, no rhonchi Cardiovascular: RRR, no significant murmur, no rub Gastrointestinal: soft, non-tender, no distention, positive bowel sounds Musculoskeletal: pulses present left leg swallon more than right Neurological: non-focal, normal sensation, moves all 4 limbs Psychiatric: normal affect, A&O x 3 Skin: no rash, normal turgor Dx/Plan (1) Acute kidney failure Status: Acute (2) Hypokalemia Code(s): E87.6 - HYPOKALEMIA Status: Acute (3) Hypomagnesemia Code(s): E83.42 - HYPOMAGNESEMIA Status: Resolved (4) Hyponatremia Code(s): E87.1 - HYPO-OSMOLALITY AND HYPONATREMIA Status: Acute (5) Sepsis Code(s): A41.9 - SEPSIS, UNSPECIFIED ORGANISM Status: Acute (6) Alcohol abuse Code(s): F10.10 - ALCOHOL ABUSE, UNCOMPLICATED Status: Chronic (7) Anxiety and depression Code(s): F41.9 - ANXIETY DISORDER, UNSPECIFIED; F32.9 - MAJOR DEPRESSIVE DISORDER, SINGLE EPISODE, UNSPECIFIED Status: Chronic (8) Hypertension Code(s): I10 - ESSENTIAL (PRIMARY) HYPERTENSION Status: Chronic (9) Lymphoma Status: Chronic (10) Obesity (BMI 30.0-34.9) Code(s): E66.9 - OBESITY, UNSPECIFIED Status: Chronic (11) Tobacco abuse Code(s): Z72.0 - TOBACCO USE Status: Chronic (12) Edema of left lower extremity Code(s): R60.0 - LOCALIZED EDEMA Status: Acute - Plan cont current plan of care, continue antibiotics * DC IVF * renal function improving * continue zosyn * suspecting leg edema from lymph node involvement * will need elastic stocking * medication reviewed as below * symptomatic treatment. Review of Systems - Review of Systems Eyes: negative: Pain, Vision Change, Conjunctivae Inflammation, Eyelid Inflammation, Redness, Other ENT: negative: Ear Pain, Ear Discharge, Nose Pain, Nose Discharge, Nose Congestion, Mouth Pain, Mouth Swelling, Throat Pain, Throat Swelling, Other Respiratory: negative: Cough, Dry, Shortness of Breath, Hemoptysis, SOB with Excertion, Pleuritic Pain, Sputum, Wheezing Cardiovascular: edema. negative: chest pain, palpitations, orthopnea, paroxysmal nocturnal dyspnea, light headedness, other Gastrointestinal: negative: Nausea, Vomiting, Abdominal Pain, Diarrhea, Constipation, Melena, Hematochezia, Other Genitourinary: negative: Dysuria, Frequency, Incontinence, Hematuria, Retention , Other Musculoskeletal: negative: Neck Pain, Shoulder Pain, Arm Pain, Back Pain, Hand Pain, Leg Pain, Foot Pain, Other - Medications/Allergies Allergies/Adverse Reactions: Allergies Allergy/AdvReac Type Severity Reaction Status Date / Time hydrocodone Allergy Verified 02/15/19 04:42 Sulfa (Sulfonamide Allergy Verified 01/26/19 09:28 Antibiotics) Medications: Current Medications Acetaminophen (Tylenol) 650 mg PO Q4H PRN PRN Reason: Headache/Fever/Mild Pain (1-3) Last Admin: 02/13/19 06:45 Dose: 650 mg Acetaminophen (Tylenol) 1,000 mg PO Q4H PRN PRN Reason: Fever > 101 Last Admin: 02/15/19 04:27 Dose: 1,000 mg Hydrocodone Bitart/Acetaminophen ([place] 7.5/325) 1 tab PO Q4H PRN PRN Reason: Moderate Pain (4-6) Hydrocodone Bitart/Acetaminophen ([place] 5/325) 1 tab PO Q4H PRN PRN Reason: Moderate Pain (4-6) Artificial Tears (Liquitears 15ml Bottle) 2 drop EA EYE PRN PRN PRN Reason: Dry Eyes Bupropion HCl (Wellbutrin Sr) 150 mg PO BID [facility] Last Admin: 02/15/19 07:43 Dose: 150 mg Carvedilol (Coreg) 12.5 mg PO DAILY [facility] Last Admin: 02/15/19 07:43 Dose: 12.5 mg Docusate Sodium (Colace) 100 mg PO BID [facility] Last Admin: 02/15/19 07:43 Dose: 100 mg Guaifenesin (Robitussin Sf) 200 mg PO Q4H PRN PRN Reason: Cough Hydralazine HCl (Apresoline) 10 mg SLOW IVP Q4H PRN PRN Reason: SBP > 180 and HR < 70 Piperacillin Sod/Tazobactam (Sod 3.375 gm/ Sodium Chloride) 100 mls @ 200 mls/ hr IVPB Q6HR [facility] Last Admin: 02/15/19 05:05 Dose: 100 mls Loratadine (Claritin) 10 mg PO DAILYPRN PRN PRN Reason: Sinus Symptoms Last Admin: 02/13/19 09:56 Dose: 10 mg Mineral Oil/White Petrolatum (Eucerin Cream) 0 gm TOP BIDPRN PRN PRN Reason: Dry Skin Ondansetron HCl (Zofran Odt) 4 mg PO Q6H PRN PRN Reason: Nausea/Vomiting Last Admin: 02/14/19 14:28 Dose: 4 mg Ondansetron HCl (Zofran) 4 mg IVP Q6H PRN PRN Reason: Nausea/Vomiting Last Admin: 02/15/19 06:25 Dose: 4 mg Potassium Chloride (K-Dur) 40 meq PO NOW [facility] Stop: 02/15/19 10:15 Quetiapine Fumarate (Seroquel) 50 mg PO HS [facility] Last Admin: 02/14/19 20:22 Dose: 50 mg Saccharomyces Boulardii (Florastor) 250 mg PO DAILY [facility] Last Admin: 02/15/19 07:43 Dose: 250 mg Sodium Chloride ([place] Nasal [place] 0.65%) 0 ml EA NARE QIDPRN PRN PRN Reason: Nasal Congestion Throat Lozenges (Cepastat Lozenges) 1 fernando PO Q2H PRN PRN Reason: Sore Throat Zolpidem Tartrate (Ambien) 5 mg PO HSPRN PRN PRN Reason: Insomnia
[2019-02-16] MEDS: Piperacillin/Tazobactam 3.375 GM in Sodium Chloride 0.9% 100 ML IVPB SCH (05:38)
[2019-02-16 08:04] VITALS: BP 118/77; TEMP 98.8
[2019-02-16 08:25] LABS: Mean Corpuscular HGB CONC 33.6 g/dL (32.0-36.0); Mean Corpuscular Hemoglobin 30.9 pg (27.0-31.0); Mean Platelet Volume 7.9 fL (7.4-10.4); Platelet Count 84 thou/uL (130-400); RBC Distribution Width 11.1 % (11.5-14.5); Red Blood Cell (RBC) Count 3.25 mill/uL (4.70-6.10); White Blood Cell (WBC) Count 2.1 thou/uL (4.8-10.8)
[2019-02-16 08:45] LABS: Anion Gap 11 mmol/L (10-20); BUN (Urea Nitrogen) 19 mg/dL (8.4-25.7); Calc. Creatinine Clearance 58 mL/min (70-130); Calcium 8.7 mg/dL (7.8-10.44); Carbon Dioxide 25 mmol/L (23-31); Chloride 101 mmol/L (98-107); Estimated GFR-MDRD 36; Glucose 116 mg/dL (80-115); Potassium 3.4 mmol/L (3.5-5.1); Sodium 134 mmol/L (136-145)
[2019-02-16 08:54] LABS: Band 15 % (5-11); Eosinophils 4 % (0-10); Lymphocytes 35 % (21-51); MDiff Complete? YES; Monocytes 10 % (0-10); Neutrophil 36 % (42-75); Platelet Morphology Comment Appears Decreased; Polychromasia SLIGHT = 2-3 cells (100X) (0-2/hpf)
[2019-02-16] MEDS: Saccharomyces boulardii 250 MG CAP PO SCH (09:36)
[2019-02-16] MEDS: Bupropion 150 MG SR TAB PO SCH (09:36)
[2019-02-16] MEDS: Carvedilol 6.25 MG TAB PO SCH (09:36)
[2019-02-16] MEDS: Docusate 100 MG CAP PO SCH (09:37)
[2019-02-16] MEDS ORDERED: Potassium Chloride 20 MEQ TAB PO SCH (10:00)
--- NOTE | 2019-02-16 12:23 | PDOC.PN ---
- Subjective Encounter Start Date: 02/16/19 Encounter Start Time: 10:00 Patient seen and examined. No new complaints. No overnight events - Objective Resuscitation Status - Order Detail: 02/12/19 14:47 Resuscitation Status Routine Resuscitation Status: FULL: Full Resuscitation Additional comments: next of kin-Brigida REYES Reviewed: Yes Vital Signs & Weight: Vital Signs (12 hours) Temp Pulse Resp BP Pulse Ox 02/16/19 08:00 97 02/16/19 07:56 98.8 F 73 18 118/77 97 02/16/19 05:42 99.5 F Weight Weight 230 lb I&O: 02/15/19 02/16/19 02/17/19 06:59 06:59 06:59 Intake Total 2540 960 480 Balance 2540 960 480 Result Diagrams: 02/16/19 08:15 02/16/19 08:15 Phys Exam - Physical Examination Constitutional: NAD HEENT: PERRLA, moist MMs, sclera anicteric Neck: no JVD, supple Respiratory: no wheezing, no rales, no rhonchi Cardiovascular: RRR, no significant murmur, no rub Gastrointestinal: soft, non-tender, no distention, positive bowel sounds Musculoskeletal: no edema, pulses present Neurological: non-focal, normal sensation Lymphatic: no nodes Psychiatric: normal affect, A&O x 3 Skin: no rash, normal turgor Dx/Plan (1) Acute kidney failure Status: Acute (2) Hypokalemia Code(s): E87.6 - HYPOKALEMIA Status: Acute (3) Hypomagnesemia Code(s): E83.42 - HYPOMAGNESEMIA Status: Resolved (4) Hyponatremia Code(s): E87.1 - HYPO-OSMOLALITY AND HYPONATREMIA Status: Acute (5) Sepsis Code(s): A41.9 - SEPSIS, UNSPECIFIED ORGANISM Status: Acute (6) Alcohol abuse Code(s): F10.10 - ALCOHOL ABUSE, UNCOMPLICATED Status: Chronic (7) Anxiety and depression Code(s): F41.9 - ANXIETY DISORDER, UNSPECIFIED; F32.9 - MAJOR DEPRESSIVE DISORDER, SINGLE EPISODE, UNSPECIFIED Status: Chronic (8) Hypertension Code(s): I10 - ESSENTIAL (PRIMARY) HYPERTENSION Status: Chronic (9) Lymphoma Status: Chronic (10) Obesity (BMI 30.0-34.9) Code(s): E66.9 - OBESITY, UNSPECIFIED Status: Chronic (11) Tobacco abuse Code(s): Z72.0 - TOBACCO USE Status: Chronic (12) Edema of left lower extremity Code(s): R60.0 - LOCALIZED EDEMA Status: Acute - Plan cont current plan of care, continue antibiotics * medication reviewed as below * symptomatic treatment * see discharge summery. Review of Systems - Review of Systems ENT: negative: Ear Pain, Ear Discharge, Nose Pain, Nose Discharge, Nose Congestion, Mouth Pain, Mouth Swelling, Throat Pain, Throat Swelling, Other Respiratory: negative: Cough, Dry, Shortness of Breath, Hemoptysis, SOB with Excertion, Pleuritic Pain, Sputum, Wheezing Cardiovascular: negative: chest pain, palpitations, orthopnea, paroxysmal nocturnal dyspnea, edema, light headedness, other Gastrointestinal: negative: Nausea, Vomiting, Abdominal Pain, Diarrhea, Constipation, Melena, Hematochezia, Other Genitourinary: negative: Dysuria, Frequency, Incontinence, Hematuria, Retention , Other Musculoskeletal: negative: Neck Pain, Shoulder Pain, Arm Pain, Back Pain, Hand Pain, Leg Pain, Foot Pain, Other - Medications/Allergies Allergies/Adverse Reactions: Allergies Allergy/AdvReac Type Severity Reaction Status Date / Time hydrocodone Allergy Verified 02/15/19 04:42 Sulfa (Sulfonamide Allergy Verified 01/26/19 09:28 Antibiotics) Medications: Current Medications Acetaminophen (Tylenol) 1,000 mg PO Q4H PRN PRN Reason: Fever > 101 Last Admin: 02/15/19 04:27 Dose: 1,000 mg Hydrocodone Bitart/Acetaminophen ([place] 7.5/325) 1 tab PO Q4H PRN PRN Reason: Moderate Pain (4-6) Hydrocodone Bitart/Acetaminophen ([place] 5/325) 1 tab PO Q4H PRN PRN Reason: Moderate Pain (4-6) Artificial Tears (Liquitears 15ml Bottle) 2 drop EA EYE PRN PRN PRN Reason: Dry Eyes Bupropion HCl (Wellbutrin Sr) 150 mg PO BID [facility] Last Admin: 02/16/19 09:36 Dose: 150 mg Carvedilol (Coreg) 12.5 mg PO DAILY [facility] Last Admin: 02/16/19 09:36 Dose: 12.5 mg Docusate Sodium (Colace) 100 mg PO BID [facility] Last Admin: 02/16/19 09:37 Dose: Not Given Guaifenesin (Robitussin Sf) 200 mg PO Q4H PRN PRN Reason: Cough Hydralazine HCl (Apresoline) 10 mg SLOW IVP Q4H PRN PRN Reason: SBP > 180 and HR < 70 Levofloxacin (Levaquin) 500 mg PO 0600 [facility] Loratadine (Claritin) 10 mg PO DAILYPRN PRN PRN Reason: Sinus Symptoms Last Admin: 02/13/19 09:56 Dose: 10 mg Mineral Oil/White Petrolatum (Eucerin Cream) 0 gm TOP BIDPRN PRN PRN Reason: Dry Skin Ondansetron HCl (Zofran Odt) 4 mg PO Q6H PRN PRN Reason: Nausea/Vomiting Last Admin: 02/14/19 14:28 Dose: 4 mg Ondansetron HCl (Zofran) 4 mg IVP Q6H PRN PRN Reason: Nausea/Vomiting Last Admin: 02/15/19 06:25 Dose: 4 mg Quetiapine Fumarate (Seroquel) 50 mg PO HS [facility] Last Admin: 02/15/19 20:43 Dose: 50 mg Saccharomyces Boulardii (Florastor) 250 mg PO DAILY [facility] Last Admin: 02/16/19 09:36 Dose: 250 mg Sodium Chloride ([place] Nasal [place] 0.65%) 0 ml EA NARE QIDPRN PRN PRN Reason: Nasal Congestion Sodium Chloride (Flush - Normal Saline) 10 ml IVF Q12HR [facility] Sodium Chloride (Flush - Normal Saline) 10 ml IVF PRN PRN PRN Reason: Saline Flush Throat Lozenges (Cepastat Lozenges) 1 fernando PO Q2H PRN PRN Reason: Sore Throat Zolpidem Tartrate (Ambien) 5 mg PO HSPRN PRN PRN Reason: Insomnia
--- NOTE | 2019-02-16 12:35 | PQF ---
DATE: 02-16-19 ATTN: DR. HA GREENWOOD Please exercise your independent, professional judgment in responding to the clarification form. Clinical indicators are provided on the bottom of this form for your review Diagnosis: ACUTE SEPSIS Present on Admission (POA): [ x ] Yes [ ] No [ ] Unable to determine Coding guidelines require hospitals to identify whether a diagnosis was present on admission (POA) or not. To accurately assign the appropriate POA indicator, this information must be clearly documented within the medical record. CLINICAL INDICATORS - SIGNS / SYMPTOMS / LABS ER DX: FEVER, LEUKOCYTOSIS ER: TEMP: 100.3, 99.4, 99.7 RR: 21, 24 H&P 02-13-12: FEVER, MARKED LEUKOCYTOSIS, RECENT DX OF LYMPHOMA POST 1ST ROUND OF CHEMO, HTN, ACUTE RENAL FAILURE, DEPRESSION, THERE IS NO OBVIOUS SOURCE OF INFECTION ON THIS GENTLEMAN AT THIS TIME, PN DR. BLANCO 02-13-19: ACUTE SEPSIS WBC: 02-11-19: 35.9 02-13-19: 11.0 02-14-19: 3.2 02-15-19: 2.0 02-16-19: 2.1 RISK FACTORS: H&P 02-13-12: FEVER, MARKED LEUKOCYTOSIS, RECENT DX OF LYMPHOMA POST 1ST ROUND OF CHEMO, HTN, ACUTE RENAL FAILURE, DEPRESSION, THERE IS NO OBVIOUS SOURCE OF INFECTION ON THIS GENTLEMAN AT THIS TIME, TREATMENT: ER: VANCOMYCIN IV, MAXIPIME IV, NS IVF (This form is maintained as a part of the permanent medical record) 2014 [employer] All Rights Reserved DAVID [email or web address] Office: [phone] [facility]ITALMercedez
--- NOTE | 2019-02-16 13:24 | DIS ---
DATE OF ADMISSION: 02/12/2019 DATE OF DISCHARGE: 02/16/2019 PRIMARY CARE PHYSICIAN: [facility] Call admission. DISCHARGE DISPOSITION: Home. PRIMARY DISCHARGE DIAGNOSES: 1. Sepsis, resolved. 2. Acute kidney failure, improved. 3. Edema of left lower extremity. 4. Hypokalemia. 5. Hyponatremia. 6. Hypomagnesemia. SECONDARY DISCHARGE DIAGNOSES: Lymphoma on chemotherapy, obesity with BMI 34, tobacco abuse, anxiety and depression. PRIMARY PROCEDURE/OPERATION: None. RADIOLOGICAL INVESTIGATION: Chest x-ray normal. Renal ultrasound normal. Ultrasound negative for any DVT. SIGNIFICANT LABORATORY DATA: Hemoglobin 10.0, WBC 2.1, platelet 84. Sodium 134, creatinine 1.87. DISCHARGE MEDICATIONS: 1. Levaquin 500 mg p.o. daily for 5 days. 2. Seroquel 50 mg daily. 3. Oxybutynin 5 mg t.i.d. 4. Coreg 12.5 mg p.o. daily. 5. Bupropion 150 mg p.o. b.i.d. 6. Zofran 8 mg q.6 hourly p.r.n. CONTRAINDICATION: None. CODE STATUS: Full code. INPATIENT BEAN DUMPER: Oncology group was consulted. TEST RESULT PENDING ON DISCHARGE: None. ALLERGIES: HYDROCODONE AND SULFA DRUGS. DISCHARGE PLAN: Post hospital, the patient will follow up with his oncologist at [facility]. HOSPITAL COURSE: A 63-year-old male, who was admitted by Dr. Donovan. Please see his H and P for further details. The patient has lymphoma and he was receiving chemotherapy. The patient was having acute febrile illness. He was meeting sepsis criteria. He was admitted to the hospital. He was given vancomycin and Zosyn. Subsequently, vancomycin was discontinued. He had abnormal electrolytes, which was replaced while in hospital. He had acute kidney failure, which was improving with IV fluid. On discharge, we changed to p.o. Levaquin therapy. The patient has appointment with his oncologist at [facility] in next week. The patient is otherwise medically stable for discharge. The patient is seen and examined at bedside today. Please see my progress note from today for further detail. Job ID: [id number]
== END 2019-02-16 12:49 | disposition home or self-care (01) | DRG 872 ==
LOC: SCSER 20:09 → ERHOLD 02-12 11:14 → T4-A 02-12 14:22
PROVIDERS: ADMIT Family Medicine; ATTEND Family Medicine
DX: A41.9 Sepsis, unspecified organism (principal); N17.9 Acute kidney failure, unspecified; E87.1 Hypo-osmolality and hyponatremia; C85.95 Non-Hodgkin lymphoma, unspecified, lymph nodes of inguinal region and lower limb; E83.42 Hypomagnesemia; I10 Essential (primary) hypertension; R60.0 Localized edema; E87.6 Hypokalemia; E66.9 Obesity, unspecified; F17.210 Nicotine dependence, cigarettes, uncomplicated; F41.9 Anxiety disorder, unspecified; F32.9 Major depressive disorder, single episode, unspecified; F10.10 Alcohol abuse, uncomplicated; Z68.34 Body mass index [BMI] 34.0-34.9, adult; Z85.51 Personal history of malignant neoplasm of bladder; Z88.5 Allergy status to narcotic agent; Z88.2 Allergy status to sulfonamides; Z79.899 Other long term (current) drug therapy
CPT/HCPCS: 36415; 71045; 76770; 80048; 80053; 80202; 81003; 81015; 82550; 82570; 83605; 83735; 84100; 84156; 84300; 84484; 84550; 85025; 87040; 87086; 87804; 93970; 96361; 96365; 96366; 96367; J0692; J1650; J2405; J2543; J3370; J3475; J3480; J3490; J7050; Q0162

== ENCOUNTER 2019-02-20 18:17 | Inpatient (IN) | payer MEDICARE ==
[2019-02-20] MEDS ORDERED: Acetaminophen 325 MG TAB ONE (18:54)
[2019-02-20 19:02] LABS: #Basophils 0.2 thou/uL (0.0-0.2); #Lymphocytes 0.9 thou/uL (1.20-3.40); #Monocytes 1.4 thou/uL (0.11-0.59); #Neutrophils 12.3 thou/uL (1.40-6.50); %Basophils 1.1 % (0.0-1.0); %Lymphocytes 6.2 % (21.0-51.0); %Monocytes 9.3 % (0.0-10.0); %Neutrophils 83.4 % (42.0-75.0); Hemoglobin 10.8 g/dL (14.0-18.0); Mean Corpuscular HGB CONC 33.8 g/dL (32.0-36.0); Mean Corpuscular Hemoglobin 29.6 pg (27.0-31.0); Mean Corpuscular Volume 87.5 fL (78.0-98.0); Mean Platelet Volume 7.4 fL (7.4-10.4); Platelet Count 320 thou/uL (130-400); RBC Distribution Width 11.1 % (11.5-14.5); Red Blood Cell (RBC) Count 3.65 mill/uL (4.70-6.10); White Blood Cell (WBC) Count 14.7 thou/uL (4.8-10.8)
[2019-02-20 19:12] LABS: ALT (SGPT) 17 U/L (8-55); AST (SGOT) 17 U/L (5-34); Albumin 2.9 g/dL (3.4-4.8); Alkaline Phosphatase 71 U/L (40-150); Anion Gap 18 mmol/L (10-20); BUN (Urea Nitrogen) 13 mg/dL (8.4-25.7); Bilirubin, Total 0.7 mg/dL (0.2-1.2); Calc. Creatinine Clearance 0 mL/min (70-130); Calcium 8.6 mg/dL (7.8-10.44); Carbon Dioxide 20 mmol/L (23-31); Chloride 97 mmol/L (98-107); Estimated GFR-MDRD 37; Globulin 3.3 g/dL (2.4-3.5); Glucose 111 mg/dL (80-115); Magnesium 1.5 mg/dL (1.6-2.6); Potassium 3.8 mmol/L (3.5-5.1); Protein, Total 6.2 g/dL (5.8-8.1); Sodium 131 mmol/L (136-145)
[2019-02-20] MEDS ORDERED: Cefepime 2 GM VIAL ONE (19:33)
[2019-02-20] MEDS ORDERED: KETAMINE 100 MG/ML (5ML VIAL) ONE (19:37)
--- NOTE | 2019-02-20 19:44 | RAD ---
AP VIEW CHEST 02/20/19 HISTORY: Fever. Patient on chemotherapy. AP view chest is obtained on 02/20/19. Comparison made to previous exam from 02/11/19. AP view chest demonstrates cardiomegaly. A right jugular Mediport catheter has been placed. Mild pulm onary vascular congestion seen. No evidence of effusions, pneumonia or pneumothorax seen. IMPRESSION: Cardiomegaly. POS: [facility]
[2019-02-20] MEDS ORDERED: Magnesium Sulfate 2 GM/NS 0.9% 50 ML BAG ONE (20:09)
[2019-02-20] MEDS ORDERED: Piperacillin/Tazobactam 4.5 GM VIAL ONE (20:12)
--- NOTE | 2019-02-20 20:25 | ULT ---
EXAM: Left lower extremity venous Doppler HISTORY: left lower extremity edema and pain COMPARISON: Bilateral lower extremity venous Doppler examination on 02/14/2019 FINDINGS: Grayscale, color-flow, Doppler evaluation, spectral analysis of the left lower extremity venous struc tures is performed with 2-D imaging. The left common femoral, superficial femoral, popliteal, posterior tibial, proximal greater saphenous and profunda femoral veins are imaged. Color flow evaluation does not definitely demonstrate flow in the region of the left common femoral v ein which may be related to thrombus. The left superficial femoral vein is unable to be visualized. The left popliteal vein is visualized with increased luminal echogenicity and absence of flow compati ble with occlusive DVT. There is also increased luminal echogenicity and decreased flow seen within the proximal and mid posterior tibial vein suggesting occlusive DVT. IMPRESSION: Occlusive DVT involving the left posterior tibial and popliteal veins with probable occlusive DVT inv olving the left common femoral vein. The left lower extremity superficial femoral vein is unable to be visualized. Above findings discussed with Dr. Guevara in the emergency department on 02/20/2019 at 2023 hours.
[2019-02-20 20:42] LABS: INR-International Normal Ratio 1.2; PTT 33.2 SEC (22.9-36.1); Prothrombin Time 15.6 SEC (12.0-14.7)
[2019-02-20] MEDS ORDERED: Enoxaparin Sodium 100 MG/ML SYRINGE ONE (20:47)
[2019-02-20] MEDS ORDERED: Magnesium 2 GM/50 ML 2 GM in Premix Bag 1 BAG IVPB SCH (22:00)
[2019-02-20] MEDS ORDERED: Sodium Chloride 0.9% 1,000 ML IV SCH (22:31)
[2019-02-20] MEDS: Nicotine 14 MG PATCH TOP SCH (23:31)
[2019-02-21 00:18] LABS: Lactic Acid 1.2 mmol/L (0.5-2.2)
[2019-02-21] MEDS ORDERED: Ondansetron ODT 4 MG TAB PO PRN (01:45)
[2019-02-21] MEDS ORDERED: Ondansetron PF 4 MG/2 ML Vial IVP PRN (01:45)
[2019-02-21] MEDS ORDERED: Calcium Carbonate 500 MG ChewTAB PO PRN (01:45)
--- NOTE | 2019-02-21 02:36 | HP ---
The patient was seen and examined on 20 February 2019. CHIEF COMPLAINT: Left lower extremity pain and swelling along with fever. HISTORY OF PRESENT ILLNESS: The patient is a 63-year-old male with bladder cancer diagnosed in 2016, currently on chemotherapy with recent hospitalization for neutropenic fever, presented to the hospital with the above complaints. The patient was discharged home on oral antibiotics 4 days ago. The patient was seen in [facility] recently post discharge. Over the last 2 days, the patient has been spending time on his recliner and is unable to ambulate due to significant pain and swelling of the left lower extremity. He also had low-grade fever. The left lower extremity pain was moderate to severe in intensity, aggravated by movement. He also noticed worsening swelling in the left lower extremity. He has pain in the left lower extremity over the last 1 week or so that got worse over the last 2 days. Last week, the patient had ultrasound of bilateral lower extremity that was negative for DVT. He denies any cough, shortness of breath, wheezing, nausea, vomiting, or abdominal pain. He had a bowel movement 4 days ago. He denies any dysuria, hematuria, urgency, or altered mentation. In the emergency room at [facility], initial vital signs showed temperature 99.8, respirations 18, pulse of 78 with a blood pressure of 97/54 with O2 saturation of 95% on room air. Left lower extremity Doppler showed occlusive DVT involving the left posterior tibial and popliteal vein with probable occlusive DVT involving the left common femoral vein. He received one dose of Lovenox along with cefepime, Zosyn, magnesium, and IV fluids. PAST MEDICAL HISTORY: 1. Stage IV bladder cancer, currently on chemotherapy per [facility]. 2. Recent hospitalization for sepsis. 3. Obesity with a BMI of 34. 4. Anxiety and depression. 5. Tobacco abuse. 6. Hypertension. PAST SURGICAL HISTORY: Cholecystectomy. ALLERGIES: THE PATIENT IS ALLERGIC TO SULFA THAT CAUSES NAUSEA AND VOMITING. CURRENT HOME MEDICATIONS: The patient was discharged on Zofran, bupropion, carvedilol, oxybutynin, Seroquel, and Levaquin. Per family, his medications were recently changed at [facility]. The family is to provide accurate list of medications in a.m. FAMILY HISTORY: Father of heart disease. Breast cancer in the mother. The daughter is the decision maker. He is full code. SOCIAL HISTORY: As discussed above. He continues to smoke and drink alcohol on and off. REVIEW OF SYSTEMS: The patient denies any other complaints. No dysuria, hematuria, or urgency. All other review of systems was reviewed and were found negative. PHYSICAL EXAMINATION: VITAL SIGNS: As discussed above. GENERAL: A 63-year-old male in mild distress due to left lower extremity discomfort. HEENT: Head, atraumatic and normocephalic. Sclerae anicteric. Moist mucous membranes. No oral lesion. NECK: Supple. No JVD appreciated. No carotid bruit. LUNGS: Clear to auscultation bilaterally. No wheezing, rales, or rhonchi. HEART: S1 and S2 present. Regular rate and rhythm. No rubs or gallops appreciated. ABDOMEN: Soft, obese. Bowel sounds present. No rebound or guarding. EXTREMITIES: Left lower extremity significantly swollen, significant generalized edema in the left lower extremity. No significant erythema noted. There is tenderness on mild palpation. SKIN: As discussed above. LYMPH NODES: No palpable lymph nodes in the neck. PERIPHERAL VASCULAR: Radial pulses palpable bilaterally. MUSCULOSKELETAL: No joint swelling or tenderness. LABORATORY FINDINGS: WBC 14.7, hemoglobin 10.8, hematocrit 32, platelet count of 320. INR 1.2, PTT 33.2. Chemistry showed sodium of 131, potassium 3.8, chloride 97, bicarb 20, BUN 13, creatinine 1.86, magnesium 1.5, albumin 2.9. Blood cultures have been done. Left lower extremity Doppler as discussed above. Chest x-ray by my review was negative for infiltrate. IMPRESSION: 1. Left lower extremity deep vein thrombosis. 2. Fever with leukocytosis of unclear etiology, suspected secondary to deep vein thrombosis. 3. Hyponatremia. 4. Hypomagnesemia. 5. Mild protein-calorie malnutrition. 6. Stage IV bladder cancer, on chemotherapy per [facility]. 7. Anxiety. 8. Mild depression, stable. 9. Hypertension. 10. Overactive bladder. 11. Recent hospitalization for sepsis. 12. Tobacco dependence. PLAN: The patient will be monitored in oncology unit. We will continue Lovenox 1 mg/kg b.i.d. His last GFR was 37. We will recheck labs in a.m. If GFR is below 30, Lovenox will be changed to once a day. We will replace electrolytes. IV hydration. We will confirm home medications and start accordingly. We will consult Infectious Disease for low-grade fever. We will continue Zosyn for now. We will recheck labs in a.m. Plan of care was discussed with the patient in detail. He stated understanding. Job ID: [id number]
[2019-02-21] MEDS ORDERED: Piperacillin/Tazobactam 3.375 GM in Sodium Chloride 0.9% 100 ML IVPB SCH (03:00)
[2019-02-21] MEDS: Acetaminophen 325 MG TAB PO PRN (04:06)
[2019-02-21] MEDS: Sodium Chloride 0.9% 1,000 ML IV SCH (04:07)
[2019-02-21] MEDS: Piperacillin/Tazobactam 3.375 GM in Sodium Chloride 0.9% 100 ML IVPB SCH ×4 (04:08→20:10)
[2019-02-21 05:04] LABS: ALT (SGPT) 13 U/L (8-55); AST (SGOT) 13 U/L (5-34); Albumin 2.7 g/dL (3.4-4.8); Alkaline Phosphatase 66 U/L (40-150); Anion Gap 12 mmol/L (10-20); BUN (Urea Nitrogen) 15 mg/dL (8.4-25.7); Bilirubin, Total 0.6 mg/dL (0.2-1.2); Calc. Creatinine Clearance 0 mL/min (70-130); Calcium 8.7 mg/dL (7.8-10.44); Carbon Dioxide 26 mmol/L (23-31); Chloride 99 mmol/L (98-107); Estimated GFR-MDRD 40; Globulin 2.8 g/dL (2.4-3.5); Glucose 107 mg/dL (80-115); Potassium 3.6 mmol/L (3.5-5.1); Protein, Total 5.5 g/dL (5.8-8.1); Sodium 133 mmol/L (136-145)
[2019-02-21 05:10] LABS: Band 12 % (5-11); Hemoglobin 9.9 g/dL (14.0-18.0); Lymphocytes 6 % (21-51); MDiff Complete? YES; Mean Corpuscular HGB CONC 34.5 g/dL (32.0-36.0); Mean Corpuscular Hemoglobin 31.1 pg (27.0-31.0); Mean Corpuscular Volume 90.2 fL (78.0-98.0); Mean Platelet Volume 7.9 fL (7.4-10.4); Monocytes 11 % (0-10); Neutrophil 70 % (42-75); Platelet Count 312 thou/uL (130-400); Platelet Morphology Comment Appears Adequate; RBC Distribution Width 11.5 % (11.5-14.5); RBC Morphology Normal; Reactive Lymphocytes 1 % (0-10); White Blood Cell (WBC) Count 10.8 thou/uL (4.8-10.8)
[2019-02-21 07:05] VITALS: BMI 37.0
[2019-02-21] MEDS ORDERED: Prevnar 13-Val Conj/PF 0.5 ML SYRINGE IM ONE (07:15)
[2019-02-21] MEDS: Famotidine 20 MG TAB PO SCH (08:38)
[2019-02-21] MEDS: Senokot S 8.6-50 MG TAB PO SCH ×2 (08:39→20:09)
[2019-02-21] MEDS ORDERED: Enoxaparin Sodium 100 MG/ML SYRINGE SC SCH (09:00)
[2019-02-21] MEDS: HYDROcodone/Acetaminophen 10/325 mg Tablet PO PRN ×2 (09:48→15:23)
--- NOTE | 2019-02-21 14:35 | CON ---
DATE OF CONSULTATION: REASON FOR CONSULT: Bladder cancer. HISTORY OF PRESENT ILLNESS: Mr. Sullivan is a 63-year-old gentleman, who was recently diagnosed with bladder cancer. He had chronic left lower extremity pain and edema secondary to an enlarged left inguinal lymph node. This node was biopsied and showed metastatic carcinoma of urothelial origin. He went to [facility] and received his first cycle of chemotherapy on February 06, chemo consisted of vinblastine, doxorubicin, and cisplatin. He did have Neulasta coverage. He was admitted about a week ago for sepsis. He did recover and went home. Over the last several days, his left lower extremity swelling and pain has increased and he has had more difficulty ambulating. He has required a walker to assist. He presented to the [place] [facility] yesterday for further evaluation. A left lower extremity Doppler showed an occlusive DVT of the left posterior tibial and popliteal vein with probable occlusive DVT involving the left common femoral vein. He was started on Lovenox. He has had an intermittent fever and was started on empiric antibiotics. PAST MEDICAL HISTORY: 1. Stage 4 bladder cancer. 2. Hypertension. 3. Anxiety and depression. PAST SURGICAL HISTORY: 1. Cholecystectomy. 2. TURBT. 3. Ureteral stent placement. ALLERGIES: SULFA. HOME MEDICATIONS: 1. Zyban 150 mg b.i.d. 2. Coreg 12.5 mg daily. 3. Zofran p.r.n. 4. Oxybutynin chloride 5 mg t.i.d. 5. Seroquel daily. FAMILY HISTORY: His mother had breast cancers. SOCIAL HISTORY: , has 3 children. Fifty-one pack year history of smoking. Social drinker. No illicit drug use. REVIEW OF SYSTEMS: Positive for fever and left lower extremity pain and swelling. PHYSICAL EXAMINATION: VITAL SIGNS: T-max temperature of 100.0, pulse of 77, respiratory rate of 18, BP is 106/59, and he is 98% on room air. GENERAL: This is a well-developed, well-nourished male, in no acute distress. HEENT: Normocephalic and atraumatic. Pupils are equal and reactive to light. NECK: Supple. CVS: Regular rate and rhythm. LUNGS: Clear. ABDOMEN: Soft and nontender. Bowel sounds are positive. EXTREMITIES: He has 3+ left lower extremity edema. SKIN: There is no rash. HEMATOLOGIC: There is no petechiae or purpura. NEUROLOGIC: Nonfocal. PSYCH: The patient is alert, oriented, and appropriate. PERTINENT LABS AND X-RAYS: Current WBCs are 10.8, hemoglobin 9.9, hematocrit 28.8, and platelets are 312,000. He has 70% neutrophils, 12% bands, and 6% lymphocytes. PT 15.6, INR is 1.2, and PTT is 33.2. Sodium is 133, potassium 3.6, chloride 99 , CO2 is 26, BUN is 15, creatinine 1.74, lactic acid is 1.2, calcium 8.7, bilirubin is 0.6, AST is 13, ALT 13, and alkaline phosphatase is 66. Creatine kinase is 9. Serum total protein is 5.5, albumin 2.7, and globulin 2.8. Chest x-ray showed cardiomegaly. ASSESSMENT: 1. Stage 4 bladder cancer, on chemotherapy. 2. New left lower extremity deep venous thrombosis. 3. Chronic left lower extremity edema. 4. Transient fever. DISCUSSION: The patient has been started on therapeutic Lovenox and can be transitioned to oral anticoagulation. We would recommend Eliquis b.i.d. He is currently on empiric antibiotics. He is not neutropenic and fever may be due to his DVT. We would continue pain medication for his leg pain. He is due for his next cycle of chemotherapy on Saturday. We would recommend discharge this weekend if possible, to follow up with his oncologist in [place] on Saturday. Thank you for the consult. Job ID: [id number] [facility]ITAL[facility]ced[facility]
--- NOTE | 2019-02-21 14:37 | PDOC.PN ---
- Subjective Encounter Start Date: 02/21/19 Encounter Start Time: 14:35 Mr. Sullivan was seen today in follow-up of left lower extremity DVT. He notes extreme swelling and tightness in his leg - Objective Resuscitation Status - Order Detail: 02/21/19 01:45 Resuscitation Status Routine Resuscitation Status: FULL: Full Resuscitation MAR Reviewed: Yes Vital Signs & Weight: Vital Signs (12 hours) Temp Pulse Resp BP Pulse Ox 02/21/19 08:00 97.8 F 77 18 106/59 L 98 02/21/19 05:30 92 L 02/21/19 04:32 100.0 F H 69 18 121/59 L 92 L Weight Weight 229 lb 4.492 oz Result Diagrams: 02/21/19 04:02 02/21/19 04:02 Phys Exam - Physical Examination HEENT: PERRLA Respiratory: no wheezing, no rales, no rhonchi, clear to auscultation bilateral Cardiovascular: RRR, no significant murmur, no rub Gastrointestinal: soft, non-tender, no distention, positive bowel sounds Musculoskeletal: edema present + tense edema in the left lower extremity up to the groin, no warmth Neurological: non-focal, normal sensation Dx/Plan (1) Left leg DVT Code(s): I82.402 - ACUTE EMBOLISM AND THOMBOS UNSP DEEP VEINS OF L LOW EXTREM Status: Acute (2) Bladder cancer Status: Acute (3) Hypertension Code(s): I10 - ESSENTIAL (PRIMARY) HYPERTENSION Status: Chronic (4) Fever Code(s): R50.9 - FEVER, UNSPECIFIED Status: Acute - Plan * DVT-will change him to Eliquis * Due to the extensive nature of the clot will limit his ambulation for a few days * Bladder cancer- he has an appointment for chemotherapy on Saturday at [facility]- will try to shot for discharge prior to this * HTN - blood pressure is stable * Fever- I suspect this is from the DVT- but will check a UA.
[2019-02-21 17:13] LABS: Bilirubin Negative (Negative); Blood, Urine Moderate (Negative); Clarity CLOUDY (Clear); Glucose, Urine (Dipstick) Negative (Negative); Leukocyte Negative (Negative); Nitrite Negative (Negative); Protein, Urine (Dipstick) Trace mg/dL (Neg-Trace); Specific Gravity, Urine 1.017 (1.002-1.036); Urobilinogen 0.2 mg/dL (0.2-1.0); pH, Urine 5.5 (5.0-9.0)
[2019-02-21 17:18] LABS: Bacteria/HPF None Seen HPF (None Seen); Hyaline Casts/LPF 0-3 HYALINE CAST LPF (0-3 Hyaline); Pathc Cast-AUWi Flag 0.27 (0-2.49); Squamous Epithelial 0-3 HPF (0-3)
[2019-02-21 17:19] LABS: Yeast-AUWi Flag 110.1 (0-25.0)
[2019-02-21 17:25] LABS: Crystals/HPF RARE AMORPH URATES HPF (Negative); Transitional Epithelial 0-3 HPF (0-3); WBC/HPF 0-3 HPF (0-3); Yeast-All Forms None Seen HPF (None Seen)
--- NOTE | 2019-02-21 17:58 | PDOC.EVN ---
Event Note - Event Note Event Note: Returned to see patient due to increased swelling in the left leg. The toes appear a bit darker in color, pulse was not palpable but was able to doppler a pulse. He is complaining of severe pain in the leg. Will place a cool compress on the leg and keep it elevated, and strict bedrest. Discussed with [facility] Surgery critical care nurse practitioner.
[2019-02-21] MEDS: Morphine 4 MG/ML VIAL SLOW IVP PRN ×2 (18:03→23:55)
[2019-02-21] MEDS: Apixaban 5 MG TAB PO SCH (20:09)
--- NOTE | 2019-02-21 23:56 | CON ---
DATE OF CONSULTATION: 02/21/2019 REASON FOR CONSULTATION: Fever, DVT, bladder cancer. HISTORY OF PRESENT ILLNESS: A 63-year-old, history of bladder cancer, probably transitional cell on chemotherapy through a port, also obesity and chronic smoking, who receives his cancer care at [facility] and presented with worsening swelling of the left lower extremity associated with fever of acute onset for the past week approximately. PHYSICAL EXAMINATION: INITIAL VITAL SIGNS: Showed a BP of 90/50, pulse 78, respirations 18, temperature 99.8, O2 saturation 95%. He did not have any headaches. No chest pain or dyspnea. No abdominal pain. No diarrhea, no genitourinary symptoms. The patient had a venous Duplex ultrasound, which demonstrated left lower extremity extensive deep vein thrombosis. He was given broad-spectrum antimicrobial coverage and started on Lovenox, still having pain and swelling in the left lower extremity and limitations of mobility. No sputum production. No diarrhea. No abdominal pain. PAST MEDICAL HISTORY: Stage IV bladder cancer on chemotherapy, not exactly which drug through a port at [facility]. Recent episode of sepsis. Negative Duplex ultrasound of the veins of lower extremities completed recently during this past admission, chronic smoking, obesity, hypertension. PAST SURGICAL HISTORY: Cholecystectomy and bladder cystoscopy. ALLERGIES: SULFA DRUGS WITH NAUSEA AND VOMITING, BUT NOT TO HYPERSENSITIVITY REACTION. FAMILY HISTORY: Heart disease, breast cancer. SOCIAL HISTORY: Current smoker. CURRENT MEDICATIONS: 1. Tylenol. 2. [place]. 3. Eliquis. 4. Tums. 5. Pepcid. 6. Nicoderm. 7. Zosyn. PHYSICAL EXAMINATION: VITAL SIGNS: T-max 100, blood pressure 120/70, pulse 65, respirations 16, and O2 saturation 100. SKIN: Shows the left lower extremity with area of swelling. There is mild erythema in the groin where the pathologic lymph nodes are located according to PET scan. He has no Bauman catheter, voids in toilet. HEENT: Ocular movements conjugate. Oral cavity normal. NECK: Supple. LUNGS: Symmetric clear breath sounds. He has artificial dentures. LUNGS: Clear to auscultation and percussion, S1, S2. Regular rate. No murmurs. No S3 or S4. ABDOMEN: Soft, nondistended or tender. No ascites. No bladder distention. Left groin is swollen with the pathologic lymph nodes. EXTREMITIES: Left lower extremity is moderately swollen as well. Pulses 1+ in dorsalis pedis. Cap refill is normal. Cognitive function appears to be intact. LABORATORY DATA: White cell count is down from 14 to 10, hemoglobin 9.9, platelets 312, 12% bands. Sodium 133, creatinine 1.74. Transaminases normal. Albumin 2.7. Two sets of blood culture no growth at 2 days approximately. ASSESSMENT: 1. Metastatic bladder cancer with pathologic lymph nodes in left groin. 2. Acute deep venous thrombosis in the left lower extremity, quite extensive. 3. Fever. 4. Neutrophilia with bandemia. DISCUSSION: Most likely scenario is acute thrombosis associated with increased coagulability due to malignancy as well as immobility. I would advise discontinuation of antimicrobial therapy. Continue with anticoagulants. Discharge planning after further clinical stability and improvement in the symptoms in left lower extremity. The patient is with extensive venous thrombosis, sometimes can be a candidate for lysis of the thrombus that requires devices that are not available in [facility]. The patient's with extensive thrombosis may develop post phlebitic syndrome lymphedema and so on. Job ID: [id number] [facility]
[2019-02-22] MEDS: Nicotine 14 MG PATCH TOP SCH ×2 (00:14→22:11)
[2019-02-22] MEDS: Sodium Chloride 0.9% 1,000 ML IV SCH (00:14)
[2019-02-22] MEDS: HYDROcodone/Acetaminophen 10/325 mg Tablet PO PRN ×3 (02:42→19:43)
[2019-02-22] MEDS: Piperacillin/Tazobactam 3.375 GM in Sodium Chloride 0.9% 100 ML IVPB SCH ×4 (02:42→21:33)
[2019-02-22 07:00] LABS: Band 7 % (5-11); Hemoglobin 9.2 g/dL (14.0-18.0); Hypochromia SLIGHT = 6-15 cells (100X) (0-5/hpf); Lymphocytes 5 % (21-51); MDiff Complete? YES; Mean Corpuscular HGB CONC 33.9 g/dL (32.0-36.0); Mean Corpuscular Hemoglobin 31.2 pg (27.0-31.0); Mean Corpuscular Volume 91.8 fL (78.0-98.0); Mean Platelet Volume 7.2 fL (7.4-10.4); Monocytes 4 % (0-10); Neutrophil 84 % (42-75); Platelet Count 353 thou/uL (130-400); Platelet Morphology Comment Appears Adequate; RBC Distribution Width 11.6 % (11.5-14.5); Red Blood Cell (RBC) Count 2.95 mill/uL (4.70-6.10); White Blood Cell (WBC) Count 10.1 thou/uL (4.8-10.8)
[2019-02-22 07:06] LABS: ALT (SGPT) 13 U/L (8-55); AST (SGOT) 14 U/L (5-34); Albumin 2.5 g/dL (3.4-4.8); Alkaline Phosphatase 61 U/L (40-150); Anion Gap 13 mmol/L (10-20); BUN (Urea Nitrogen) 16 mg/dL (8.4-25.7); Bilirubin, Total 0.5 mg/dL (0.2-1.2); Calc. Creatinine Clearance 61 mL/min (70-130); Calcium 8.6 mg/dL (7.8-10.44); Carbon Dioxide 23 mmol/L (23-31); Chloride 101 mmol/L (98-107); Estimated GFR-MDRD 39; Globulin 2.8 g/dL (2.4-3.5); Glucose 108 mg/dL (80-115); Magnesium 2.1 mg/dL (1.6-2.6); Potassium 3.2 mmol/L (3.5-5.1); Protein, Total 5.3 g/dL (5.8-8.1); Sodium 134 mmol/L (136-145)
[2019-02-22] MEDS: Senokot S 8.6-50 MG TAB PO SCH ×2 (09:02→21:05)
[2019-02-22] MEDS: Famotidine 20 MG TAB PO SCH (09:02)
[2019-02-22] MEDS: Apixaban 5 MG TAB PO SCH ×2 (09:02→21:33)
--- NOTE | 2019-02-22 14:32 | PDOC.PN ---
- Subjective Encounter Start Date: 02/22/19 Encounter Start Time: 14:31 Mr. Sullivan was seen today in follow-up of DVT of the left lower extremity. He says the pain is better in his left leg. However he notes that the swelling has increased to the scrotum and into is lower back on the left side. - Objective Resuscitation Status - Order Detail: 02/21/19 01:45 Resuscitation Status Routine Resuscitation Status: FULL: Full Resuscitation MAR Reviewed: Yes Vital Signs & Weight: Vital Signs (12 hours) Temp Pulse Resp BP Pulse Ox 02/22/19 08:00 98.4 F 78 20 134/63 97 02/22/19 05:22 98.6 F 81 18 122/71 99 02/22/19 05:10 98 Weight Weight 229 lb 4.492 oz I&O: 02/21/19 02/22/19 02/23/19 06:59 06:59 06:59 Intake Total 1400 360 Output Total 1 Balance 1400 359 Result Diagrams: 02/22/19 06:33 02/22/19 06:33 Phys Exam - Physical Examination HEENT: PERRLA Respiratory: no wheezing, no rales, no rhonchi, clear to auscultation bilateral Cardiovascular: RRR, no significant murmur, no rub Gastrointestinal: soft, non-tender, no distention, positive bowel sounds Musculoskeletal: edema present + massive edema in the left lower extremity up to his groin, color is pinker in the area pulse is able to doppler Dx/Plan (1) Left leg DVT Code(s): I82.402 - ACUTE EMBOLISM AND THOMBOS UNSP DEEP VEINS OF L LOW EXTREM Status: Acute (2) Bladder cancer Status: Acute (3) Hypertension Code(s): I10 - ESSENTIAL (PRIMARY) HYPERTENSION Status: Chronic (4) Fever Code(s): R50.9 - FEVER, UNSPECIFIED Status: Acute - Plan * DVT- continue Eliquis, and continue strick bed rest * Bladder cancer- he is not safe to travel, given the extensive nature of his DVT- Will discuss with Oncology- he may need to have his next cycle of chemotherapy here ( it was scheduled for tomorrow. * HTN- blood pressure is controlled * Continue Symptom relief
[2019-02-22] MEDS: Acetaminophen 325 MG TAB PO PRN (22:10)
[2019-02-23] MEDS: HYDROcodone/Acetaminophen 10/325 mg Tablet PO PRN ×5 (01:45→23:23)
[2019-02-23] MEDS: Piperacillin/Tazobactam 3.375 GM in Sodium Chloride 0.9% 100 ML IVPB SCH ×3 (03:00→15:27)
[2019-02-23] MEDS: Morphine 2 MG/ML SYRINGE SLOW IVP PRN (04:51)
[2019-02-23] MEDS: Apixaban 5 MG TAB PO SCH ×2 (09:13→20:11)
[2019-02-23] MEDS: Oxybutynin 5 MG TAB PO SCH ×3 (09:14→20:10)
[2019-02-23] MEDS: Carvedilol 6.25 MG TAB PO SCH (09:14)
[2019-02-23] MEDS: Famotidine 20 MG TAB PO SCH (09:14)
[2019-02-23] MEDS: Senokot S 8.6-50 MG TAB PO SCH ×2 (09:15→20:13)
--- NOTE | 2019-02-23 14:45 | PDOC.PN ---
- Subjective Encounter Start Date: 02/23/19 Encounter Start Time: 14:25 Mr. Sullivan was seen today in follow-up of DVT of the left lower extremity. He says the pain level is about the same. - Objective Resuscitation Status - Order Detail: 02/21/19 01:45 Resuscitation Status Routine Resuscitation Status: FULL: Full Resuscitation MAR Reviewed: Yes Vital Signs & Weight: Vital Signs (12 hours) Temp Pulse Resp BP BP Pulse Ox 02/23/19 09:14 125/81 02/23/19 08:00 99.5 F 89 18 125/81 95 02/23/19 03:00 98.5 F Weight Weight 229 lb 4.492 oz I&O: 02/22/19 02/23/19 02/24/19 06:59 06:59 06:59 Intake Total 1400 2745 100 Output Total 1001 Balance 1400 1744 100 Result Diagrams: 02/22/19 06:33 02/22/19 06:33 Phys Exam - Physical Examination HEENT: PERRLA Respiratory: no wheezing, no rales, no rhonchi, clear to auscultation bilateral Cardiovascular: RRR, no significant murmur, no rub Gastrointestinal: soft, non-tender, no distention, positive bowel sounds Musculoskeletal: pulses present, edema present + swelling tense in shelly left lower extremity up to the groin Dx/Plan (1) Left leg DVT Code(s): I82.402 - ACUTE EMBOLISM AND THOMBOS UNSP DEEP VEINS OF L LOW EXTREM Status: Acute (2) Bladder cancer Status: Acute (3) Hypertension Code(s): I10 - ESSENTIAL (PRIMARY) HYPERTENSION Status: Chronic (4) Fever Code(s): R50.9 - FEVER, UNSPECIFIED Status: Acute - Plan * Left Lower extremity DVT- continue Eliquis * Metastatic bladder cancer- I have placed a call to his Oncologist at [facility] in the [place]- a Dr. Avalos [phone] and awaiting his call back. We will see if treatment can either be delayed, or if he wants to give his cycle of chemotherapy will have him fax the orders * Continue Strict bed rest a few more days in order to allow the clot to stabilize * HTN- blood pressure is stable.
[2019-02-23] MEDS: Acetaminophen 325 MG TAB PO PRN ×2 (16:21→23:23)
--- NOTE | 2019-02-23 18:04 | PDOC.EVN ---
Event Note - Event Note Event Note: I spoke with Dr. Avalos from [facility]. He says it would be best to postpone this cycle of chemotherapy. Hopefully in a few days the swelling will improve, and he can be safely discharged and released to travel back to the [place] and receive his chemotherapy.
[2019-02-23] MEDS: Nicotine 14 MG PATCH TOP SCH (23:25)
[2019-02-24] MEDS: HYDROcodone/Acetaminophen 10/325 mg Tablet PO PRN ×2 (06:55→12:45)
[2019-02-24] MEDS: Apixaban 5 MG TAB PO SCH ×2 (08:25→20:10)
[2019-02-24] MEDS: Famotidine 20 MG TAB PO SCH (08:26)
[2019-02-24] MEDS: Carvedilol 6.25 MG TAB PO SCH (08:26)
[2019-02-24] MEDS: Oxybutynin 5 MG TAB PO SCH ×3 (08:26→20:11)
[2019-02-24] MEDS: Senokot S 8.6-50 MG TAB PO SCH ×2 (08:27→20:09)
[2019-02-24] MEDS: Morphine 2 MG/ML SYRINGE SLOW IVP PRN (10:01)
[2019-02-24] MEDS: Acetaminophen 325 MG TAB PO PRN (12:32)
[2019-02-24] MEDS ORDERED: Milk Of Magnesia 30 ML UDCUP PO PRN (13:09)
--- NOTE | 2019-02-24 13:13 | PDOC.PN ---
- Subjective Encounter Start Date: 02/24/19 Encounter Start Time: 11:30 f/u DVT Pain present left leg, achiness, sometimes tingling. Perhaps "a little less swollen." Scrotal edema present. Endorses constipation. States oxycodone has been effective for him in the past, while hydrocodone has not. - Objective Resuscitation Status - Order Detail: 02/21/19 01:45 Resuscitation Status Routine Resuscitation Status: FULL: Full Resuscitation Vital Signs & Weight: Vital Signs (12 hours) Temp Pulse Resp BP BP Pulse Ox 02/24/19 12:00 100.1 F H 02/24/19 08:26 117/67 02/24/19 08:00 94 L 02/24/19 07:55 99.0 F 86 18 117/67 94 L 02/24/19 03:37 99.6 F Weight Weight 229 lb 4.492 oz I&O: 02/23/19 02/24/19 02/25/19 06:59 06:59 06:59 Intake Total 2745 940 Output Total 1001 675 300 Balance 1744 265 -300 Result Diagrams: 02/22/19 06:33 02/22/19 06:33 Phys Exam - Physical Examination Constitutional: NAD HEENT: PERRLA, oral pharynx no lesions Neck: supple, full ROM Respiratory: clear to auscultation bilateral Cardiovascular: RRR Gastrointestinal: soft, no distention LLE edema diffusely foot to groin, with scrotal edema Neurological: non-focal Psychiatric: normal affect, A&O x 3 Skin: no rash Dx/Plan (1) Normocytic anemia Code(s): D64.9 - ANEMIA, UNSPECIFIED Status: Acute (2) Bladder cancer Status: Acute (3) Left leg DVT Code(s): I82.402 - ACUTE EMBOLISM AND THOMBOS UNSP DEEP VEINS OF L LOW EXTREM Status: Acute (4) Hypokalemia Code(s): E87.6 - HYPOKALEMIA Status: Acute (5) Hypertension Code(s): I10 - ESSENTIAL (PRIMARY) HYPERTENSION Status: Chronic (6) Tobacco abuse Code(s): Z72.0 - TOBACCO USE Status: Chronic - Plan * Heme/Once - LLE DVT extensive, continue Eliquis. Per Dr. Alvarado's discusseion with Dr. Avalos, resume chemo as outpt after dismissal. Begin out of bed to chair with assistance. Continue elevation. * Pain - try rotation hydrocodone to oxycodone * Constipation - add MOM, continue Senna. Patient had been refusing Senna per nurses. * Hypokalemia - recheck AML * NC anemia - on chemo due to bladder CA, expected
[2019-02-24] MEDS: Morphine 4 MG/ML VIAL SLOW IVP PRN (15:25)
[2019-02-24] MEDS: oxyCODONE 5 MG TAB PO PRN (19:16)
[2019-02-24] MEDS: Nicotine 14 MG PATCH TOP SCH (22:04)
[2019-02-25] MEDS: Morphine 4 MG/ML VIAL SLOW IVP PRN (04:05)
[2019-02-25] MEDS: Carvedilol 6.25 MG TAB PO SCH (08:34)
[2019-02-25] MEDS: Apixaban 5 MG TAB PO SCH ×2 (08:34→19:50)
[2019-02-25] MEDS: Senokot S 8.6-50 MG TAB PO SCH ×2 (08:35→19:51)
[2019-02-25] MEDS: Famotidine 20 MG TAB PO SCH (08:35)
[2019-02-25] MEDS: Oxybutynin 5 MG TAB PO SCH ×3 (08:35→19:51)
[2019-02-25] MEDS: Morphine 2 MG/ML SYRINGE SLOW IVP PRN ×2 (08:37→16:37)
--- NOTE | 2019-02-25 16:47 | PDOC.PN ---
- Subjective Encounter Start Date: 02/25/19 Encounter Start Time: 16:00 Scrotal edema is quite symptomatic. Initally patient asked about a dykes catheter - we discussed the issues therein, no dykes planned or recommended. Profound left leg swelling present. BM yesterday. Oxycodone more effective for him than hydrocodone, reports overall pain control better. No fever/chills/ SOB/CP. at bedside. - Objective Resuscitation Status - Order Detail: 02/21/19 01:45 Resuscitation Status Routine Resuscitation Status: FULL: Full Resuscitation Vital Signs & Weight: Vital Signs (12 hours) Temp Pulse Resp BP BP Pulse Ox 02/25/19 16:12 98.3 F 02/25/19 11:47 98.1 F 02/25/19 08:34 117/67 02/25/19 08:00 99 02/25/19 07:57 98.4 F 85 16 140/74 99 Weight Weight 229 lb 4.492 oz I&O: 02/24/19 02/25/19 02/26/19 06:59 06:59 06:59 Intake Total 940 1030 Output Total 675 1625 725 Balance 265 -595 -725 Result Diagrams: 02/22/19 06:33 02/22/19 06:33 Phys Exam - Physical Examination Constitutional: NAD HEENT: PERRLA, oral pharynx no lesions Neck: no JVD, full ROM Respiratory: clear to auscultation bilateral Cardiovascular: RRR Gastrointestinal: soft, non-tender LLE diffusely edematous foot to groin, with severe scrotal edema noted Neurological: non-focal, moves all 4 limbs Psychiatric: normal affect, A&O x 3 Skin: no rash Dx/Plan (1) Normocytic anemia Code(s): D64.9 - ANEMIA, UNSPECIFIED Status: Acute (2) Bladder cancer Status: Acute (3) Left leg DVT Code(s): I82.402 - ACUTE EMBOLISM AND THOMBOS UNSP DEEP VEINS OF L LOW EXTREM Status: Acute (4) Hypokalemia Code(s): E87.6 - HYPOKALEMIA Status: Acute (5) Hypertension Code(s): I10 - ESSENTIAL (PRIMARY) HYPERTENSION Status: Chronic (6) Tobacco abuse Code(s): Z72.0 - TOBACCO USE Status: Chronic - Plan * Heme/Onc - LLE DVT extensive, continue Eliquis. 02/23 Dr. Alvarado spoke with Dr. Avalos ( [facility]), recommended resume chemo as outpt after dismissal. Per nurse, family considering transfer Heme/Onc care locally, record request being processed, Flor Vera SEAMER made aware by bedside nurse that patient/family may pursue this option. * Elevate/OOB/start PT. Recommended scrotal elevation, avoid dykes. * Narcotic related constipation - improved, continue scheduled Senna bid * Pain - patient reports increased efficacy on oxycodone relative to hydrocodone * NC anemia - on chemo due to bladder cancer, expected/stable * AM lab ordered, hypokalemia earlier during hospital stay, will recheck
[2019-02-25] MEDS: oxyCODONE 5 MG TAB PO PRN (19:56)
[2019-02-25] MEDS: Nicotine 14 MG PATCH TOP SCH (23:30)
[2019-02-26 06:45] LABS: Hemoglobin 8.6 g/dL (14.0-18.0); Mean Corpuscular HGB CONC 33.2 g/dL (32.0-36.0); Mean Corpuscular Hemoglobin 30.3 pg (27.0-31.0); Mean Corpuscular Volume 91.3 fL (78.0-98.0); Mean Platelet Volume 6.7 fL (7.4-10.4); Platelet Count 557 thou/uL (130-400); RBC Distribution Width 11.7 % (11.5-14.5); Red Blood Cell (RBC) Count 2.83 mill/uL (4.70-6.10); White Blood Cell (WBC) Count 13.1 thou/uL (4.8-10.8)
[2019-02-26 07:01] LABS: Anion Gap 11 mmol/L (10-20); BUN (Urea Nitrogen) 13 mg/dL (8.4-25.7); Calc. Creatinine Clearance 98 mL/min (70-130); Calcium 8.7 mg/dL (7.8-10.44); Carbon Dioxide 30 mmol/L (23-31); Chloride 97 mmol/L (98-107); Estimated GFR-MDRD 66; Glucose 114 mg/dL (80-115); Sodium 135 mmol/L (136-145)
[2019-02-26 08:05] LABS: Band 5 % (5-11); Lymphocytes 12 % (21-51); MDiff Complete? YES; Monocytes 14 % (0-10); Neutrophil 69 % (42-75); Platelet Morphology Comment Appears Increased; Polychromasia SLIGHT = 2-3 cells (100X) (0-2/hpf)
[2019-02-26] MEDS: Famotidine 20 MG TAB PO SCH (08:48)
[2019-02-26] MEDS: Senokot S 8.6-50 MG TAB PO SCH ×2 (08:48→20:21)
[2019-02-26] MEDS: Carvedilol 6.25 MG TAB PO SCH (08:49)
[2019-02-26] MEDS: Apixaban 5 MG TAB PO SCH ×2 (08:49→20:31)
[2019-02-26] MEDS: Oxybutynin 5 MG TAB PO SCH ×3 (08:49→20:20)
[2019-02-26] MEDS: Nicotine 14 MG PATCH TOP SCH (09:51)
[2019-02-26] MEDS: Morphine 2 MG/ML SYRINGE SLOW IVP PRN (10:30)
--- NOTE | 2019-02-26 10:59 | PDOC.PN ---
- Subjective Encounter Start Date: 02/26/19 Encounter Start Time: 10:57 Subjective: Admitted due to left lower extremityn pain, swelling and fever. -: Found to have extensive DVT of left lower extremity. -: now also has scrotal swelling. - Objective Resuscitation Status - Order Detail: 02/21/19 01:45 Resuscitation Status Routine Resuscitation Status: FULL: Full Resuscitation Vital Signs & Weight: Vital Signs (12 hours) Temp Pulse Resp BP BP Pulse Ox 02/26/19 08:49 117/67 02/26/19 08:00 99.4 F 85 18 118/65 94 L Weight Weight 229 lb 4.492 oz I&O: 02/25/19 02/26/19 02/27/19 06:59 06:59 06:59 Intake Total 1030 1500 Output Total 1625 975 Balance -595 525 Result Diagrams: 02/26/19 06:26 02/26/19 06:26 Phys Exam - Physical Examination Constitutional: NAD afebrile and anicteric HEENT: PERRLA, moist MMs Neck: supple Respiratory: no wheezing, no rales, no rhonchi, clear to auscultation bilateral Cardiovascular: RRR Gastrointestinal: soft, non-tender, no distention, positive bowel sounds Scrotal swelling noted massive global edema of left lower extremity noted Neurological: non-focal, moves all 4 limbs Psychiatric: A&O x 3 Dx/Plan (1) Deep vein thrombosis (DVT) of left lower extremity Code(s): I82.402 - ACUTE EMBOLISM AND THOMBOS UNSP DEEP VEINS OF L LOW EXTREM Status: Acute (2) Edema of left lower extremity Code(s): R60.0 - LOCALIZED EDEMA Status: Acute (3) Bladder cancer Status: Acute (4) Acute kidney failure Status: Acute Comment: Improving. (5) Hypokalemia Code(s): E87.6 - HYPOKALEMIA Status: Acute (6) Hypertension Code(s): I10 - ESSENTIAL (PRIMARY) HYPERTENSION Status: Chronic (7) Obesity (BMI 30.0-34.9) Code(s): E66.9 - OBESITY, UNSPECIFIED Status: Chronic - Plan Replete serum potassium and magnesium -: Elevate left lower extremity -: Aanalgesic as needed. -: Continue eliquis -: Appreciated Hem/Onc input. Repeat Renal panel and Magn in am. * .
[2019-02-26] MEDS ORDERED: Magnesium Sulfate 4 GM in Sodium Chloride 0.9% 250 ML 250 ML IVPB SCH (11:00)
[2019-02-26] MEDS: Potassium Chloride 20 MEQ TAB PO SCH ×2 (12:08→15:57)
[2019-02-26] MEDS: Acetaminophen 325 MG TAB PO PRN (20:19)
[2019-02-26] MEDS: oxyCODONE 5 MG TAB PO PRN (22:56)
[2019-02-27] MEDS: Morphine 4 MG/ML VIAL SLOW IVP PRN (06:12)
[2019-02-27 06:45] LABS: Albumin 2.5 g/dL (3.4-4.8); Anion Gap 10 mmol/L (10-20); BUN (Urea Nitrogen) 14 mg/dL (8.4-25.7); BUN/Creatinine Ratio 13.33; Calc. Creatinine Clearance 103 mL/min (70-130); Calcium 8.8 mg/dL (7.8-10.44); Carbon Dioxide 30 mmol/L (23-31); Chloride 100 mmol/L (98-107); Estimated GFR-MDRD 71; Glucose 104 mg/dL (80-115); Magnesium 1.9 mg/dL (1.6-2.6); Phosphorus 3.5 mg/dL (2.3-4.7); Potassium 3.2 mmol/L (3.5-5.1); Sodium 137 mmol/L (136-145)
[2019-02-27] MEDS ORDERED: Magnesium Oxide 400 MG TAB PO SCH (09:00)
[2019-02-27] MEDS: Senokot S 8.6-50 MG TAB PO SCH (09:21)
[2019-02-27] MEDS: Apixaban 5 MG TAB PO SCH (09:21)
[2019-02-27] MEDS: Carvedilol 6.25 MG TAB PO SCH (09:22)
[2019-02-27] MEDS: Famotidine 20 MG TAB PO SCH (09:22)
[2019-02-27] MEDS: Oxybutynin 5 MG TAB PO SCH ×2 (09:22→14:48)
[2019-02-27] MEDS: Potassium Chloride 20 MEQ TAB PO SCH ×3 (09:25→14:48)
[2019-02-27 09:28] VITALS: BP 117/67
[2019-02-27] MEDS: Nicotine 14 MG PATCH TOP SCH (09:29)
[2019-02-27] MEDS: oxyCODONE 5 MG TAB PO PRN ×2 (10:22→16:01)
[2019-02-27] MEDS: Acetaminophen 325 MG TAB PO PRN (12:18)
[2019-02-27 12:19] VITALS: TEMP 99.2
[2019-02-27] MEDS: Morphine 2 MG/ML SYRINGE SLOW IVP PRN (15:54)
--- NOTE | 2019-02-27 16:46 | DIS ---
DATE OF ADMISSION: 02/20/2019 DATE OF DISCHARGE: 02/27/2019 DISCHARGE DIAGNOSES: 1. Extensive deep vein thrombosis of the left lower extremity. 2. Left lower extremity edema. 3. Left lower extremity pain. 4. Acute kidney injury. 5. Hypokalemia. 6. Hypertension. 7. Obesity. 8. Bladder cancer, on chemotherapy. 9. Scrotal swelling. CONSULTS: 1. Hematology-Oncology. 2. Infectious Disease. DISCHARGE MEDICATIONS: 1. Zofran ODT 8 mg q.6 p.r.n. for nausea, vomiting. 2. Bupropion 150 mg p.o. b.i.d. 3. Carvedilol 12.5 mg p.o. b.i.d. 4. Oxybutynin chloride 5 mg p.o. t.i.d. 5. Seroquel 50 mg p.o. daily. 6. Tylenol 3 one tablet q.4h p.r.n. 7. Eliquis 5 mg p.o. b.i.d. 8. Pepcid 20 mg p.o. daily. HOSPITAL COURSE: This is a 63-year-old male with stage IV bladder cancer, getting chemotherapy at [facility], who presented with acute onset of worsening left leg swelling and pain as well as low-grade fever. Evaluation with ultrasound showed extensive left lower extremity DVT. The patient initially was started on IV heparin, which was later transitioned to oral anticoagulant Eliquis. Hematology-Oncology consult was obtained and they recommended continuation of oral anticoagulant. The patient also requested to transition to transfer his care from [facility] to local and that was set up for him. Given history of fever in a patient with extensive DVT, there was some concern for possible sepsis. Hence, the patient was initially started on broad-spectrum antibiotics, but cultures were negative, which tends to suggest that the fever was due to the DVT. Infectious Disease consult was obtained to help to determine the indication for antibiotics and after reviewing the patient, he recommended discontinuation of antibiotics. The patient further developed scrotal swelling, which was managed with support as well as limb elevation. The patient remained stable, received physical therapy and was felt to be in need of further restorative therapy. Acute rehab and [facility] facility options were considered, but due to the further patient needs of chemotherapy, those were not pursued. The patient was subsequently discharged home on home PT and he is to follow up with Oncology on Saturday for chemotherapy. PHYSICAL EXAMINATION: VITAL SIGNS: Temperature 99.2, pulse is 77, respiratory rate 18, SpO2 100% on room air, and blood pressure is 117/67. GENERAL: Grossly normal looking. Afebrile. Anicteric. HEENT: Pupils are equal and reacting to light. Normocephalic, atraumatic. RESPIRATORY: Good air entry bilaterally with no obvious crackle or rhonchi or use of accessory muscles. CARDIOVASCULAR: Regular rhythm and rate with normal heart sounds 1 and 2. GASTROINTESTINAL: Full, soft, nontender, nondistended with normal bowel sounds. Scrotal swelling noted. EXTREMITIES: Marked global edema of left lower extremity noted. No erythema appreciated. NEUROLOGIC: Conscious, alert, oriented x3 with appropriate mental status. CONDITION AT DISCHARGE: Stable. FOLLOWUP: 1. The patient is to follow up with Hematology-Oncology on March 02 for continuation of his chemotherapy. 2. The patient is to follow up with PCP in 1 week. TIME SPENT: This discharge took more than 37 minutes. Job ID: [id number]
[2019-02-28] MEDS ORDERED: Apixaban 5 MG TAB PO SCH (21:00)
== END 2019-02-27 16:52 | disposition home health service (06) | DRG 300 ==
LOC: SCSER 18:17 → ONC 21:49
PROVIDERS: ADMIT Internal Medicine; ATTEND Internal Medicine
DX: I82.402 Acute embolism and thrombosis of unspecified deep veins of left lower extremity (principal); C77.9 Secondary and unspecified malignant neoplasm of lymph node, unspecified; E87.1 Hypo-osmolality and hyponatremia; E44.1 Mild protein-calorie malnutrition; N17.9 Acute kidney failure, unspecified; C67.9 Malignant neoplasm of bladder, unspecified; I10 Essential (primary) hypertension; F17.210 Nicotine dependence, cigarettes, uncomplicated; E66.9 Obesity, unspecified; F41.9 Anxiety disorder, unspecified; F32.9 Major depressive disorder, single episode, unspecified; E83.42 Hypomagnesemia; N32.81 Overactive bladder; D63.0 Anemia in neoplastic disease; N50.89 Other specified disorders of the male genital organs; E87.6 Hypokalemia; Z68.34 Body mass index [BMI] 34.0-34.9, adult; Z88.2 Allergy status to sulfonamides; Z88.8 Allergy status to other drugs, medicaments and biological substances; Z79.899 Other long term (current) drug therapy
CPT/HCPCS: 36415; 71045; 80048; 80053; 80069; 81001; 82550; 83605; 83735; 85007; 85025; 85027; 85610; 85730; 87040; 96361; 96365; 96367; 96372; 96375; J0692; J1642; J1650; J2270; J2543; J3475; J3490; J7050

== ENCOUNTER 2019-03-11 10:25 | Day surgery (SDC) | payer MEDICARE ==
[2019-03-11] MEDS ORDERED: Sodium Chloride 0.9% 20 ML ONE (10:42)
[2019-03-11] MEDS ORDERED: Acetaminophen 500 MG TAB PO SCH (10:45)
[2019-03-11] MEDS ORDERED: diphenhydrAMINE 25 MG CAP PO SCH (10:45)
[2019-03-11 14:25] LABS: Hemoglobin 7.9 g/dL (14.0-18.0); Platelet Count 220 thou/uL (130-400)
[2019-03-11 16:27] VITALS: BP 151/72; TEMP 98.3
== END 2019-03-11 16:28 | disposition home or self-care (01) ==
LOC: ONC/OP 10:25
PROVIDERS: ATTEND Internal Medicine Hematology & Oncology
PROC: 30233R1 Transfusion of Nonautologous Platelets into Peripheral Vein, Percutaneous Approach (ICD-10-PCS; principal; 2019-03-11)
PROC: 30233N1 Transfusion of Nonautologous Red Blood Cells into Peripheral Vein, Percutaneous Approach (ICD-10-PCS; 2019-03-11)
DX: D64.9 Anemia, unspecified (principal); D69.6 Thrombocytopenia, unspecified
CPT/HCPCS: 36430; 85014; 85018; 85049; 86850; 86900; 86901; J1642; P9016; Q0163

== ENCOUNTER 2019-03-18 11:27 | Day surgery (SDC) | payer MEDICARE ==
[2019-03-18] MEDS ORDERED: Furosemide 20 MG/2 ML VIAL SLOW IVP SCH (11:45)
[2019-03-18] MEDS ORDERED: diphenhydrAMINE 25 MG CAP PO SCH (11:45)
[2019-03-18] MEDS: Acetaminophen 500 MG TAB PO SCH ×2 (12:28→14:37)
[2019-03-18] MEDS ORDERED: Dexamethasone 10 MG/ML VIAL SLOW IVP SCH (14:30)
[2019-03-18 14:48] LABS: Hemoglobin 4.6 g/dL (14.0-18.0); Mean Corpuscular HGB CONC 37.2 g/dL (32.0-36.0); Mean Corpuscular Hemoglobin 32.4 pg (27.0-31.0); Mean Corpuscular Volume 87.1 fL (78.0-98.0); Platelet Count 31 thou/uL (130-400); RBC Distribution Width 12.2 % (11.5-14.5); Red Blood Cell (RBC) Count 1.41 mill/uL (4.70-6.10); White Blood Cell (WBC) Count 13.1 thou/uL (4.8-10.8)
[2019-03-18 14:50] LABS: Band 18 % (5-11); Lymphocytes 4 % (21-51); MDiff Complete? YES; Monocytes 1 % (0-10); Neutrophil 77 % (42-75); Platelet Morphology Comment Appears Decreased
[2019-03-18] MEDS ORDERED: Sodium Chloride 0.9% 20 ML ONE (15:01)
[2019-03-18 15:16] VITALS: BP 109/58; TEMP 97.9
--- NOTE | 2019-03-18 15:33 | CT ---
CT HEAD WITHOUT IV CONTRAST COMPARISON: 04/14/2006 HISTORY: Dizziness. TECHNIQUE: Axial CT imaging at 5 mm intervals from vertex through skull base without contrast FINDINGS: There is mild cerebral volume loss. There is no evidence of an acute infarction, hemorrhage, mass eff ect, or midline shift. The ventricular system is normal in size, shape, and position. Visualized paranasal sinuses are clear. Osseous structures appear intact. IMPRESSION: 1. No acute intracranial abnormality demonstrated.
== END 2019-03-18 15:40 | disposition short-term general hospital (02) ==
LOC: ONC/OP 11:27
PROVIDERS: ATTEND Internal Medicine Hematology & Oncology
PROC: 30233R1 Transfusion of Nonautologous Platelets into Peripheral Vein, Percutaneous Approach (ICD-10-PCS; principal; 2019-03-18)
PROC: 30233N1 Transfusion of Nonautologous Red Blood Cells into Peripheral Vein, Percutaneous Approach (ICD-10-PCS; 2019-03-18)
DX: D64.9 Anemia, unspecified (principal); D69.6 Thrombocytopenia, unspecified; R42 Dizziness and giddiness; Z88.2 Allergy status to sulfonamides
CPT/HCPCS: 36430; 70450; 85025; 86880; 96374; 99213; G0463; J1100; J1940; Q0163

== ENCOUNTER 2019-03-18 15:44 | Observation (INO) | payer MEDICARE ==
[2019-03-18] MEDS ORDERED: diphenhydrAMINE 50 MG/ML VIAL ONE (16:27)
[2019-03-18 16:51] LABS: Hemoglobin 5.4 g/dL (14.0-18.0); Mean Corpuscular HGB CONC 35.7 g/dL (32.0-36.0); Mean Corpuscular Volume 86.6 fL (78.0-98.0); Mean Platelet Volume 7.3 fL (7.4-10.4); Platelet Count 29 thou/uL (130-400); RBC Distribution Width 12.2 % (11.5-14.5); Red Blood Cell (RBC) Count 1.76 mill/uL (4.70-6.10)
[2019-03-18 17:21] LABS: ALT (SGPT) 31 U/L (8-55); AST (SGOT) 14 U/L (5-34); Albumin 3.3 g/dL (3.4-4.8); Alkaline Phosphatase 154 U/L (40-150); Anion Gap 13 mmol/L (10-20); BUN (Urea Nitrogen) 14 mg/dL (8.4-25.7); CK (CPK) 15 U/L (30-200); Calc. Creatinine Clearance 0 mL/min (70-130); Calcium 9.3 mg/dL (7.8-10.44); Carbon Dioxide 25 mmol/L (23-31); Chloride 103 mmol/L (98-107); Estimated GFR-MDRD 70; Glucose 107 mg/dL (80-115); Potassium 3.9 mmol/L (3.5-5.1); Protein, Total 6.3 g/dL (5.8-8.1); Sodium 137 mmol/L (136-145)
[2019-03-18 17:25] LABS: Band 23 % (5-11); Eosinophils 2 % (0-10); Lymphocytes 1 % (21-51); MDiff Complete? YES; Monocytes 2 % (0-10); Neutrophil 72 % (42-75); Platelet Morphology Comment Appears Decreased
[2019-03-18] MEDS ORDERED: methylPREDNISolone Sod Succ/PF 125 MG/2 ML VIAL ONE (17:46)
[2019-03-18] MEDS ORDERED: Guaifenesin DM 100-10/5 ML UDCUP PO PRN (20:49)
[2019-03-18] MEDS ORDERED: Ondansetron PF 4 MG/2 ML Vial IVP PRN (20:49)
[2019-03-18] MEDS ORDERED: Senokot S 8.6-50 MG TAB PO PRN (20:49)
[2019-03-18] MEDS ORDERED: Ondansetron ODT 4 MG TAB PO PRN (20:49)
[2019-03-18] MEDS ORDERED: Acetaminophen 325 MG TAB PO PRN (20:49)
[2019-03-18] MEDS ORDERED: Acetaminophen 650 MG Suppository PR PRN (20:49)
[2019-03-18] MEDS ORDERED: Furosemide 20 MG/2 ML VIAL SLOW IVP SCH (21:00)
[2019-03-18 21:40] VITALS: BMI 31.6
[2019-03-18 21:44] LABS: Hemoglobin 5.4 g/dL (14.0-18.0)
[2019-03-18 22:18] LABS: Band 22 % (5-11); Lymphocytes 3 % (21-51); MDiff Complete? YES; Mean Corpuscular HGB CONC 35.7 g/dL (32.0-36.0); Mean Corpuscular Hemoglobin 30.7 pg (27.0-31.0); Mean Platelet Volume 7.8 fL (7.4-10.4); Neutrophil 75 % (42-75); Platelet Count 39 thou/uL (130-400); Platelet Morphology Comment Appears Decreased; RBC Distribution Width 12.4 % (11.5-14.5); Red Blood Cell (RBC) Count 1.77 mill/uL (4.70-6.10)
[2019-03-18] MEDS: Famotidine 20 MG TAB PO SCH (22:33)
[2019-03-18] MEDS: methylPREDNISolone Sod Succ/PF 125 MG/2 ML VIAL IVP SCH (22:33)
[2019-03-18] MEDS: Sodium Chloride 0.9% 1,000 ML IV SCH (22:38)
[2019-03-19] MEDS: methylPREDNISolone Sod Succ/PF 125 MG/2 ML VIAL IVP SCH ×2 (05:51→13:46)
[2019-03-19 06:29] LABS: Anisocytosis SLIGHT = 6-15 cells (100X) (0-5/hpf); Band 24 % (5-11); Hemoglobin 7.3 g/dL (14.0-18.0); Lymphocytes 4 % (21-51); MDiff Complete? YES; Mean Corpuscular HGB CONC 35.5 g/dL (32.0-36.0); Mean Corpuscular Hemoglobin 30.7 pg (27.0-31.0); Mean Corpuscular Volume 86.5 fL (78.0-98.0); Monocytes 2 % (0-10); Neutrophil 70 % (42-75); Platelet Count 34 thou/uL (130-400); RBC Distribution Width 12.9 % (11.5-14.5); Red Blood Cell (RBC) Count 2.38 mill/uL (4.70-6.10); White Blood Cell (WBC) Count 17.4 thou/uL (4.8-10.8)
[2019-03-19 06:39] LABS: Anion Gap 14 mmol/L (10-20); BUN (Urea Nitrogen) 21 mg/dL (8.4-25.7); Calc. Creatinine Clearance 87 mL/min (70-130); Calcium 9.4 mg/dL (7.8-10.44); Carbon Dioxide 25 mmol/L (23-31); Chloride 105 mmol/L (98-107); Estimated GFR-MDRD 63; Glucose 180 mg/dL (80-115); Potassium 3.7 mmol/L (3.5-5.1); Sodium 140 mmol/L (136-145)
[2019-03-19] MEDS: Sodium Chloride 0.9% 1,000 ML IV SCH (07:00)
[2019-03-19 08:13] LABS: ALT (SGPT) 26 U/L (8-55); AST (SGOT) 11 U/L (5-34); Albumin 3.2 g/dL (3.4-4.8); Alkaline Phosphatase 146 U/L (40-150); Bilirubin, Direct 0.7 mg/dL (0.1-0.3); Bilirubin, Total 1.4 mg/dL (0.2-1.2); Protein, Total 6.3 g/dL (5.8-8.1)
--- NOTE | 2019-03-19 08:21 | PDOC.PN ---
- Subjective Encounter Start Date: 03/19/19 Encounter Start Time: 12:45 Subjective: Patient feeling much better. No pain. No more dizziness. More -: energy after transfusion last night. - Objective Resuscitation Status - Order Detail: 03/18/19 19:41 Resuscitation Status Routine Resuscitation Status: FULL: Full Resuscitation Discussed with: Patient ERIC Reviewed: Yes Vital Signs & Weight: Vital Signs (12 hours) Temp Pulse Pulse Resp BP BP Pulse Ox 03/19/19 03:25 98.1 F 71 16 141/71 H 100 03/19/19 01:40 98.2 F 77 16 126/79 03/18/19 23:20 98.1 F 70 16 137/78 100 03/18/19 23:15 98.1 F 70 16 137/78 03/18/19 23:00 98 F 73 16 135/74 03/18/19 20:49 98.1 F 77 16 129/73 100 Weight Weight 214 lb 4.8 oz I&O: 03/18/19 03/19/19 03/20/19 06:59 06:59 06:59 Intake Total 1070 40 Output Total 550 Balance 520 40 Result Diagrams: 03/19/19 11:46 03/19/19 05:57 Phys Exam - Physical Examination Constitutional: NAD HEENT: moist MMs Respiratory: no wheezing, no rales, no rhonchi Cardiovascular: RRR, no significant murmur Gastrointestinal: soft, positive bowel sounds Musculoskeletal: edema present LLE, with red papular rash on ant wan, no surrounding redness Neurological: non-focal, moves all 4 limbs Psychiatric: normal affect, A&O x 3 Dx/Plan (1) Transfusion reaction Code(s): T80.92XA - UNSPECIFIED TRANSFUSION REACTION, INITIAL ENCOUNTER Status : Resolved Comment: reaction to platelets in oncology clinic (2) Acute hemolytic anemia Code(s): D59.9 - ACQUIRED HEMOLYTIC ANEMIA, UNSPECIFIED Status: Acute Comment: hemolysis hopefully improving, bilirubin coming back down, H/H improved after second unit of blood, decent urine output and creatinine doing ok , will watch closely for any evidence of renal failure for the hemolysis (3) Deep vein thrombosis (DVT) of left lower extremity Code(s): I82.402 - ACUTE EMBOLISM AND THOMBOS UNSP DEEP VEINS OF L LOW EXTREM Status: Acute Comment: holding eliquis for now, resume when ok'd by Dr. Henry (4) Stage IV bladder cancer Code(s): C67.9 - MALIGNANT NEOPLASM OF BLADDER, UNSPECIFIED Status: Acute (5) Hematuria Code(s): R31.9 - HEMATURIA, UNSPECIFIED Status: Acute Comment: holding eliquis, no further hematuria this AM (6) Thrombocytopenia Code(s): D69.6 - THROMBOCYTOPENIA, UNSPECIFIED Status: Acute Comment: likely chemotherapy effect, hopefully will rebound soon so can resume anticoagulation - Plan cont current plan of care cleared for discharge by Dr. Henry * . - Discharge Day Encounter end time: 12:55
--- NOTE | 2019-03-19 08:25 | HP ---
PRIMARY CARE PHYSICIAN: Supriya Martino, nurse practitioner. PRIMARY ONCOLOGIST: Dr. Henry. CHIEF COMPLAINT: Transfusion reaction. HISTORY OF PRESENT ILLNESS: This is a 63-year-old white male, with a known history of stage IV bladder cancer and has been doing chemotherapy in the [place], recently complicated in the last few months by a left lower extremity DVT, triggered by metastatic disease with lymph nodes on that side, which had caused lower extremity edema as well as scrotal swelling. The swelling has improved with the chemotherapy; however, the patient was diagnosed with a DVT last month and on Eliquis. He has had a drop in his hemoglobin and platelets over the last week, had a transfusion [facility] by Dr. Henry, came in for transfusion of platelets and red blood cells today. He was getting his platelet transfusion when he developed back pain, blurred vision, and was feeling really bad. They stopped the platelets and the symptoms resolved. Recheck of his blood count showed a drop in his red blood cells and so he was sent over to the emergency room for a possible transfusion reaction with hemolysis. In the ER, the patient has not been having any symptoms. He did get packed red blood cells and transfused in the emergency room without any symptoms. His Shelton was positive and his bilirubin has notably jumped up to 5, so he is hemolyzing. Dr. Henry has been informed. She did order steroids over here in the emergency room along with his transfusion, and then we are going to put him in observation in the hospital and follow his blood counts closely. PAST MEDICAL HISTORY: 1. Stage IV bladder cancer, on chemotherapy from [facility], but wants to transfer all of his care here to Dr. Henry. 2. Left lower extremity DVT, Eliquis on hold today. 3. Hypertension. 4. Obesity. PAST SURGICAL HISTORY: 1. Cholecystectomy. 2. Right tunneled MediPort. PSYCHIATRIC HISTORY: Positive for anxiety and depression. SOCIAL HISTORY: The patient continues to smoke and drink alcohol on and off. No illicit drugs. FAMILY HISTORY: Father of a heart disease. Mother had breast cancer. ALLERGIES: SULFA CAUSES NAUSEA AND VOMITING. CURRENT MEDICATIONS: 1. Carvedilol 12.5 mg twice a day. 2. Eliquis 5 mg twice a day, currently on hold. 3. Bupropion 150 mg 2 times a day. 4. OxyContin 20 mg 2 times a day. 5. Seroquel 50 mg daily. 6. Zofran ODT as needed. REVIEW OF SYSTEMS: CONSTITUTIONAL: No fevers. He did have some chills during the transfusion reaction. EYES: He had blurred vision during the transfusion reaction. No double vision. His vision is now back to normal. ENT: No congestion, drainage, or sore throat. CARDIOVASCULAR: No chest pain. No palpitations or racing heart. PULMONARY: No coughing, wheezing, or shortness of breath. GASTROINTESTINAL: No abdominal pain. No nausea or vomiting. No diarrhea. He has not had a bowel movement in the last 4 days, but he has had decreased appetite for the last 5 days and has not really been eating. GENITOURINARY: For the last 2 to 3 days he has been having significant hematuria. When he first wakes up and pees, the 1st one or two voids will have a lot of blood, after that he does not notice any in the rest of the day. No pain with urination. MUSCULOSKELETAL: He has continued swelling in his left lower extremity, though much much better and is not really hurting him now. He did have a low back pain during the transfusion reaction that has resolved. No other musculoskeletal complaints. SKIN: He has some papular rash on his left wan from the swelling. No other skin changes. NEUROLOGIC: No numbness, tingling, or focal weakness. PHYSICAL EXAMINATION: VITAL SIGNS: Blood pressure 133/75, pulse 81, respirations 13, temperature 98.3, O2 saturation 98% on room air. GENERAL: This is a well-developed, obese, white male, in no acute distress. HEENT: Pupils equal, round, and reactive to light. Oropharynx is clear without lesions, erythema, or exudate. NECK: Supple. No lymphadenopathy. No thyroid nodules or enlargement. He does have the MediPort catheter palpable in his right IJ just above the clavicle. HEART: Regular rate and rhythm. No murmurs, rubs, or gallops. LUNGS: Clear to auscultation bilaterally. No wheezes, crackles, or rhonchi. He does have a MediPort palpable in his right chest. ABDOMEN: Soft, nontender to palpation. Normoactive bowel sounds. No hepatosplenomegaly or other masses. EXTREMITIES: No clubbing or cyanosis. He does have some mild edema in the left lower extremity and a red papular rash on the anterior wan, but no cellulitis. SKIN: See extremity exam above. No other rashes. NEUROLOGIC: Intact strength and sensation in all extremities. No facial droop. PSYCHIATRIC: Alert and oriented x3. Normal mood and affect. LABORATORY DATA: White blood cell count 14.0; hemoglobin 5.4 up from 4.6 at 2:30, it was 7.9 on the 8th; hematocrit 15.2; platelet count 29. He has 23% bands. Complete metabolic panel is notable for a total bilirubin of 5.0, it was 1.5 at 12 today and was 0.8 last month; alkaline phosphatase 154; creatine kinase low at 15; albumin at 3.3. The rest was normal. Troponin was negative x1. Lactic acid was negative. Brain natriuretic peptide was 423, which is up from 126 in December. Creatinine is 1.06, which is up from 0.9, which is stable actually over the last month. ASSESSMENT: 1. Acute hemolytic anemia from transfusion reaction to platelets. I did discuss this over the phone with Dr. Henry. She said that she had never seen this happen before with platelets, just with packed red blood cell transfusions, but the patient definitely seems to be having a hemolytic event. She did note that he does need the packed red blood cell transfusion and so that is why she is giving steroids. I will also run fluids overnight 100 mL/h to try and help flush the kidneys. We will give a little bit of Lasix along with this, so that the patient does not become fluid overloaded. 2. Hematuria, currently holding the patient's Eliquis. According to Dr. Henry, he has a reversible cause for his DVT, so she does not want him to have an IVC filter if at all possible, and the plan is to see if his platelet and red blood cell rebound after his body recovers from the recent chemotherapy, at which point we can restart the Eliquis. For now, we will hold it and give him blood products as needed. 3. Left lower extremity deep venous thrombosis, holding blood thinners for now. 4. Gastrointestinal prophylaxis, put the patient on Pepcid twice a day. 5. Code status. I did discuss this with the patient. He is a full code. Should he be incapacitated, his daughter, who is his medical power of consumer attorney, would be his medical decision maker. Her name is Brigida Ibarra. Job ID: [id number]
[2019-03-19] MEDS: Famotidine 20 MG TAB PO SCH (08:26)
--- NOTE | 2019-03-19 11:15 | CON ---
DATE OF CONSULTATION: 03/19/2019 HISTORY OF PRESENT ILLNESS: Mr. Sullivan is a 63-year-old male with metastatic bladder cancer with left inguinal lymphadenopathy and pelvic lymphadenopathy with history of left lower extremity edema. He is on his second cycle of chemotherapy with carboplatin and gemcitabine and on the day of admission was noted to have a platelet count of 7000 in my office, which prompted platelet and a blood transfusion for hemoglobin of 6.2. Upon receiving platelets in the outpatient infusion area, he developed back pain as well as blurry vision and there was concern that he was having a transfusion reaction. Repeat CBC showed that his platelets were higher, but his hemoglobin had dropped to 4.6 and there was concern for the transfusion reaction, so he was transferred to the emergency room. CT scan of the head done for the blurry vision showed no evidence of head bleed. He was initiated on steroids and a transfusion protocol did show a positive AYUSH. He did receive 2 units of blood overnight and actually he is now feeling much better. His dizziness has resolved. He denies any hematuria. He was having hematuria prior to the transfusion. His leg is still swollen, but stable. He feels like he could ambulate and go home. He denies nausea or vomiting. No fevers or chills. PAST MEDICAL HISTORY: 1. Metastatic bladder cancer. 2. Hypertension. CURRENT MEDICATIONS: 1. Solu-Medrol 125 mg IV q.8 hours. 2. Tylenol p.r.n. 3. Pepcid 20 mg p.o. b.i.d. 4. Lasix 20 mg IV x1 after blood transfusion. 5. Guaifenesin 15 mL p.o. q.4 hours p.r.n. 6. Zofran 4 mg p.o. q.6 hours p.r.n. 7. Zofran 4 mg IV q.6 hours p.r.n. 8. Senokot 2 tabs p.o. b.i.d. p.r.n. ALLERGIES: SULFA. SOCIAL HISTORY: He is here with his daughter who is quite supportive. He does admit to tobacco use and he used to be a heavy drinker, but he has decreased his alcohol use in the last couple of months. FAMILY HISTORY: Noncontributory. REVIEW OF SYMPTOMS: Otherwise, 10-point review of systems is negative. PHYSICAL EXAMINATION: VITAL SIGNS: Temperature 98.1, pulse 71, respirations 16, O2 saturation 100% on room air, and blood pressure 141/71. GENERAL: He is alert, awake, and oriented x3. He is in no acute distress, quite pleasant, reading in bed. HEENT: Extraocular muscles are intact. Pupils are equal, round, and reactive to light. He does have slight scleral icterus. NECK: Supple without lymphadenopathy. CARDIOVASCULAR: Regular rhythm. LUNGS: Clear to auscultation bilaterally. ABDOMEN: Hypoactive bowel sounds, soft, much less distended from prior to treatment. EXTREMITIES: He does have 2+ to 3+ pitting edema in the left lower extremity, trace edema in the right lower extremity. His left inguinal lymphadenopathy is much improved on treatment. SKIN: He does have pretibial erythematous rash on the left leg that I noticed yesterday and initiated antibiotics for. LABORATORY DATA: White blood cell count 17.4, up from 14.0 on admission; hemoglobin 7.3, up from 5.4 on admission; platelets 34,000, up from 7000 yesterday and 29,000 at admission after the transfusion. Sodium 140, potassium 3.7, chloride 105, CO2 of 25, BUN 21, creatinine 1.1, GFR 63, glucose 180 after steroids, and calcium 9.3. Yesterday after the transfusion reaction, total bilirubin 5.0, AST 14, ALT 31, alkaline phosphatase 154, and albumin 3.3. Liver function tests are pending from this morning. ASSESSMENT: Mr. Sullivan is a 63-year-old male with, 1. Metastatic bladder cancer. 2. Thrombocytopenia and anemia secondary to chemotherapy. 3. Transfusion reaction to platelet transfusion on the day of admission. 4. Hyperbilirubinemia, possibly from transfusion reaction, but of unknown etiology. His bilirubin was 1.5 prior to the reaction to the platelets. 5. Possible left lower extremity cellulitis. PLAN: 1. I have recommended that we recheck a CBC at noon and if his hemoglobin and platelets are stable, we could consider discharge. 2. I will follow up his LFTs from this morning and we need these prior to discharge. 3. I would recommend initiating antibiotics for the left leg cellulitis. 4. Follow up with repeat CBC within 1 to 2 days in the office. 5. Follow up for cycle #2 of chemotherapy possibly next week. Job ID: [id number]
[2019-03-19 12:06] LABS: Hemoglobin 7.2 g/dL (14.0-18.0); Mean Corpuscular HGB CONC 36.2 g/dL (32.0-36.0); Mean Corpuscular Hemoglobin 31.1 pg (27.0-31.0); Mean Corpuscular Volume 85.9 fL (78.0-98.0); Mean Platelet Volume 9.1 fL (7.4-10.4); Platelet Count 39 thou/uL (130-400); RBC Distribution Width 12.7 % (11.5-14.5); White Blood Cell (WBC) Count 19.5 thou/uL (4.8-10.8)
[2019-03-19 12:59] VITALS: BP 143/83; TEMP 98.4
--- NOTE | 2019-03-20 04:19 | DIS ---
DATE OF ADMISSION: 03/18/2019 DATE OF DISCHARGE: 03/19/2019 PRIMARY CARE PHYSICIAN: Supriya Martino, nurse practitioner. PRIMARY ONCOLOGIST: Dr. Henry. REASON FOR ADMISSION: Transfusion reaction. DIAGNOSES AT DISCHARGE: 1. Transfusion reaction to platelets, resolved. 2. Acute anemia and thrombocytopenia secondary to chemotherapy. 3. Possible hemolytic anemia. 4. Deep venous thrombosis in the left lower extremity. 5. Stage IV bladder cancer. 6. Hematuria. 7. Possible left lower extremity cellulitis. PROCEDURES: None. CONSULTATIONS: Heme/Oncology, Dr. Henry. PERTINENT LABORATORY: Hemoglobin at the oncologist's office was 4.6, up to 7.2 at discharge; and platelet count initially 29, up to 39 at discharge. Creatinine 1.17 at discharge. SUMMARY OF HOSPITAL COURSE: This is a 63-year-old male with metastatic bladder cancer, left inguinal lymphadenopathy, pelvic lymphadenopathy, and left lower extremity edema. He developed DVT, was on Eliquis for this, and was on second cycle of chemotherapy, which prompted a drop of platelets and hemoglobin. The patient went to Dr. Henry's office and was receiving platelets transfusion, when he developed back pain, blurry vision, and there was a concern for a transfusion reaction. Repeat CBC showed that the platelets were higher, but his hemoglobin dropped to 4.6 and was concerned for hemolysis. The patient was sent to the emergency room. He was given steroids and noted to have a positive AYUSH. He did receive 2 units of blood overnight and felt much better. No more hematuria in the morning. His Eliquis was held by Dr. Henry and he had no other symptoms. No significant elevations in his creatinine. The patient had a stable blood count on the day of discharge and was cleared for discharge by Dr. Henry. She is starting him on some antibiotics for possible cellulitis of the left lower extremity versus just edema changes from his DVT, which he has already called into the pharmacy. DISCHARGE MANAGEMENT: Discharged home. FOLLOWUP: Follow up with Dr. Henry in 2 days for repeat CBC and with primary care physician in the next week. ACTIVITY: As tolerated. DIET: Regular diet. MEDICATIONS: The patient is to hold his Eliquis until restarted by Dr. Henry. He is to resume other home medications. 1. Bupropion 150 mg twice a day. 2. Carvedilol 12.5 mg twice a day. 3. Levaquin 500 mg daily. 4. Zofran as needed. 5. OxyContin 20 mg twice a day. 6. Seroquel 50 mg at night. Job ID: [id number] [facility]
== END 2019-03-19 14:03 | disposition home or self-care (01) ==
LOC: ERS 15:44 → ERHOLD 16:30 → ONC 20:40
PROVIDERS: ADMIT Emergency Medicine; ATTEND Emergency Medicine
DX: T80.89XA Other complications following infusion, transfusion and therapeutic injection, initial encounter (principal); D64.81 Anemia due to antineoplastic chemotherapy; D69.59 Other secondary thrombocytopenia; T45.1X5A Adverse effect of antineoplastic and immunosuppressive drugs, initial encounter; C67.9 Malignant neoplasm of bladder, unspecified; I10 Essential (primary) hypertension; F41.9 Anxiety disorder, unspecified; F32.9 Major depressive disorder, single episode, unspecified; F17.210 Nicotine dependence, cigarettes, uncomplicated; C79.9 Secondary malignant neoplasm of unspecified site; E80.6 Other disorders of bilirubin metabolism; I82.402 Acute embolism and thrombosis of unspecified deep veins of left lower extremity; E66.9 Obesity, unspecified; Z68.31 Body mass index [BMI] 31.0-31.9, adult; Z86.718 Personal history of other venous thrombosis and embolism; Z88.2 Allergy status to sulfonamides; Z79.01 Long term (current) use of anticoagulants; Z79.899 Other long term (current) drug therapy
CPT/HCPCS: 36430; 70450; 80048; 80053 ×2; 80076; 82550; 83010; 83605; 83615; 83880; 84484; 85025 ×3; 85027; 86850; 86880; 86900; 86901; 86920; 86922; 96361; 96374 ×2; 96375 ×2; 96376 ×2; 99284; G0378; G0463; P9016; P9035; 99213; J1100; J1200; J1642; J1940; J2930; Q0163

== ENCOUNTER 2019-03-31 12:59 | Day surgery (SDC) | payer MEDICARE ==
[2019-03-31] MEDS ORDERED: diphenhydrAMINE 25 MG CAP PO SCH (13:30)
[2019-03-31] MEDS ORDERED: Acetaminophen 500 MG TAB PO SCH (13:30)
[2019-03-31 21:35] VITALS: BP 143/70; TEMP 96.6
[2019-03-31 22:57] LABS: Band 1 % (5-11); Hemoglobin 7.2 g/dL (14.0-18.0); Lymphocytes 42 % (21-51); MDiff Complete? YES; Mean Corpuscular HGB CONC 35.4 g/dL (32.0-36.0); Mean Corpuscular Hemoglobin 31.9 pg (27.0-31.0); Mean Corpuscular Volume 90.3 fL (78.0-98.0); Mean Platelet Volume 6.7 fL (7.4-10.4); Monocytes 8 % (0-10); Neutrophil 49 % (42-75); Platelet Count 241 thou/uL (130-400); RBC Distribution Width 14.5 % (11.5-14.5); Red Blood Cell (RBC) Count 2.24 mill/uL (4.70-6.10); White Blood Cell (WBC) Count 3.5 thou/uL (4.8-10.8)
== END 2019-03-31 21:48 | disposition home or self-care (01) ==
LOC: ONC/OP 12:59 → ONC 13:01 → ONC/OP 21:48
PROVIDERS: ATTEND Internal Medicine Hematology & Oncology
PROC: 30233N1 Transfusion of Nonautologous Red Blood Cells into Peripheral Vein, Percutaneous Approach (ICD-10-PCS; principal; 2019-03-31)
DX: D64.9 Anemia, unspecified (principal); D69.6 Thrombocytopenia, unspecified; Z88.2 Allergy status to sulfonamides
CPT/HCPCS: 36430; 85025; 86850; 86900; 86901; P9016; Q0163

== ENCOUNTER 2019-04-06 08:47 | Day surgery (SDC) | payer MEDICARE ==
[2019-04-06] MEDS ORDERED: diphenhydrAMINE 25 MG CAP PO SCH (09:15)
[2019-04-06] MEDS ORDERED: Acetaminophen 500 MG TAB PO SCH (09:15)
[2019-04-06 12:46] LABS: Hemoglobin 6.7 g/dL (14.0-18.0); Platelet Count 22 thou/uL (130-400)
[2019-04-06 15:40] VITALS: BP 121/73; TEMP 98.1
== END 2019-04-06 15:40 | disposition home or self-care (01) ==
LOC: ONC/OP 08:47
PROVIDERS: ATTEND Internal Medicine Hematology & Oncology
PROC: 30233N1 Transfusion of Nonautologous Red Blood Cells into Peripheral Vein, Percutaneous Approach (ICD-10-PCS; principal; 2019-04-06)
DX: D64.9 Anemia, unspecified (principal); D69.6 Thrombocytopenia, unspecified; Z88.2 Allergy status to sulfonamides; Z79.2 Long term (current) use of antibiotics; Z79.899 Other long term (current) drug therapy
CPT/HCPCS: 36430; 85014; 85018; 85049; 86850; 86900; 86901; P9016; Q0163

== ENCOUNTER 2019-04-09 11:08 | Day surgery (SDC) | payer MEDICARE ==
[2019-04-09] MEDS ORDERED: Sodium Chloride 0.9% 20 ML ONE (11:44)
[2019-04-09] MEDS ORDERED: Dexamethasone 10 MG/ML VIAL SLOW IVP PRN (11:50)
[2019-04-09] MEDS ORDERED: Acetaminophen 500 MG TAB PO SCH (12:00)
[2019-04-09] MEDS ORDERED: diphenhydrAMINE 50 MG/ML VIAL IVP SCH (12:00)
[2019-04-09 14:29] VITALS: BP 128/70; TEMP 98
== END 2019-04-09 14:28 | disposition home or self-care (01) ==
LOC: ONC/OP 11:08
PROVIDERS: ATTEND Internal Medicine Hematology & Oncology
PROC: 30233R1 Transfusion of Nonautologous Platelets into Peripheral Vein, Percutaneous Approach (ICD-10-PCS; principal; 2019-04-09)
PROC: 30233N1 Transfusion of Nonautologous Red Blood Cells into Peripheral Vein, Percutaneous Approach (ICD-10-PCS; 2019-04-09)
DX: D69.6 Thrombocytopenia, unspecified (principal); Z88.2 Allergy status to sulfonamides; Z79.2 Long term (current) use of antibiotics; Z79.899 Other long term (current) drug therapy
CPT/HCPCS: 36430; 86850; 86900; 86901; J1200; J1642; P9035

== ENCOUNTER 2019-04-14 09:42 | Outpatient (CLI) | payer MEDICARE ==
--- NOTE | 2019-04-14 11:17 | CT ---
CHEST CT WITH CONTRAST ABDOMEN CT WITH CONTRAST PELVIC CT WITH CONTRAST: COMPARISON: 12/29/2018. CORRELATION: PET imaging 01/22/2019. HISTORY: Bladder cancer. Patient undergoing chemotherapy. FINDINGS: CHEST CT: No mediastinal mass, lymphadenopathy, or hematoma. Heart size is within normal limits. No pericardi al effusion. The thoracic and abdominal aorta have a normal caliber. No periaortic fat stranding. Trachea and central bronchi are patent. No pleural effusion. RIGHT LUNG: No suspicious masses or consolidation. LEFT LUNG: No suspicious masses or consolidation. No pneumothorax. ABDOMEN CT: Portal vein is patent. Surgically absent gallbladder. Liver, spleen, pancreas, and adrenal glands h ave appropriate attenuation and enhancement. No gastrohepatic, retrocrural, or periportal lymphadenopathy. No mesenteric mass, lymphadenopathy, free air, or free fluid. Horseshoe kidney is redemonstrated. Hypodensities in the left renal cortex too small to characterize but are statistically favored to be cysts. No evidence of right-sided obstructed uropathy. There i s a double-J left left ureteral stent. No significant dilatation of the left intra- and extrarenal c ollecting system. No evidence of bowel obstruction. Normal-caliber small bowel loops. Ileocecal junction is normal. Normal-caliber appendix. Scattered fecal material and contrast in a nondistended, nondilated colon. CT PELVIS: Mucosal thickening involving the urinary bladder. Right hemipelvis is unremarkable. There is an enl arged, necrotic left external iliac lymph node measuring 1.[address] used for attenuation corre ction on 01/22/2019 demonstrated lymphadenopathy to be approximately 3.4 x 2.4 cm in this region. The degree of lymphadenopathy has decreased. There is stable stranding of the left hemipelvic fat. The re are enlarged necrotic left inguinal lymph nodes measuring .4 x 1.5 cm. Additional enlarged left l ower lymph node measures 0.9 x 1.2 cm. There is a thrombus in the left common femoral vein and proximal superficial femoral vein. No lytic or blastic lesions in the osseous structures. Degenerative changes of the lower lumbar spin e are noted. There is pseudoarthrosis of the inferiormost lumbar-type vertebral body with the sacral alae. IMPRESSION: 1. When comparing to the CT used for attenuation correction in January of 2019, there is response to t herapy with decreased lymphadenopathy in the left hemipelvis and left inguinal region. There is pers istent mucosal prominence in the urinary bladder. 2. There is evidence of a horseshoe kidney without evidence of high-grade obstructive uropathy. Lef t ureteral stent is appropriately positioned. 3. Thrombus involving the left lower extremity deep venous system. The results of the study were discussed with Dr. Henry 04/14/2019 at 10:52 a.m. CODE CR POS: OFF
== END 2019-04-14 09:43 | disposition home or self-care (01) ==
LOC: SCSCT 09:42
PROVIDERS: ATTEND Internal Medicine Hematology & Oncology
DX: C67.9 Malignant neoplasm of bladder, unspecified (principal); R59.0 Localized enlarged lymph nodes; Q63.1 Lobulated, fused and horseshoe kidney; I82.4Z2 Acute embolism and thrombosis of unspecified deep veins of left distal lower extremity; Z96.0 Presence of urogenital implants
CPT/HCPCS: 71260; 74177

== ENCOUNTER 2019-04-16 05:44 | Day surgery (SDC) | payer MEDICARE ==
[2019-04-15 09:30] VITALS: BMI 31.0
[2019-04-16] MEDS ORDERED: Lidocaine 1% (PF) 30 ML VIAL ONE (06:40)
--- NOTE | 2019-04-16 07:20 | OP ---
DATE OF PROCEDURE: 04/16/2019 PREOPERATIVE DIAGNOSIS: Deep venous thrombosis with bleeding, on anticoagulation. POSTOPERATIVE DIAGNOSIS: Deep venous thrombosis with bleeding, on anticoagulation. PROCEDURES PERFORMED: 1. Inferior venacavogram. 2. Inferior vena cava filter placement - TrapEase with its tip at the L1-L2 interface. TOTAL FLUORO TIME: 1.2 minutes. TOTAL CONTRAST: 15 mL. DESCRIPTION OF PROCEDURE: After consent was obtained, the patient was brought to the laboratory analyst, placed in supine position on the laboratory analyst table. Appropriate monitoring was placed. Using ultrasound guidance, the right groin was anesthetized with 1% lidocaine. Percutaneous access of the right common femoral vein was obtained using modified Seldinger technique. The cavogram sheath was passed at L2. Hand-injection cavogram was performed. There was hourglassing of the vena cava confirming the left renal vein location. Right renal vein orifice was noted. The left renal vein was the most caudad and located at the L1-L2 junction. The vena cava measured less than 2.5 cm in diameter. The filter was then positioned with its tip at the L1-L2 junction. The filter was deployed and seated nicely. The patient tolerated the procedure well. Sheath was removed and manual pressure held for hemostasis. He will be discharged to home later today. Job ID: [id number]
[2019-04-16] MEDS ORDERED: Iopamidol 370 76% 50 ML VIAL FS ONE (08:55)
== END 2019-04-16 09:35 | disposition home or self-care (01) ==
LOC: CCL 05:44
PROVIDERS: ATTEND Thoracic Surgery (Cardiothoracic Vascular Surgery)
PROC: 06H03DZ Insertion of Intraluminal Device into Inferior Vena Cava, Percutaneous Approach (ICD-10-PCS; principal; 2019-04-16)
PROC: 06V03DZ Restriction of Inferior Vena Cava with Intraluminal Device, Percutaneous Approach (ICD-10-PCS; 2019-04-16)
DX: I82.432 Acute embolism and thrombosis of left popliteal vein (principal); T45.515A Adverse effect of anticoagulants, initial encounter; I10 Essential (primary) hypertension; C67.9 Malignant neoplasm of bladder, unspecified; C79.9 Secondary malignant neoplasm of unspecified site; F17.210 Nicotine dependence, cigarettes, uncomplicated; Z88.2 Allergy status to sulfonamides; Z79.899 Other long term (current) drug therapy
CPT/HCPCS: 37191; 77002; C1769; J1644; J2001; Q9967

== ENCOUNTER 2019-05-05 09:26 | Day surgery (SDC) | payer MEDICARE ==
[2019-05-05] MEDS ORDERED: Sodium Chloride 0.9% 10 ML ONE (10:32)
[2019-05-05 17:25] VITALS: BP 128/74; TEMP 97.7
[2019-05-05 18:01] LABS: Hemoglobin 7.7 g/dL (14.0-18.0); Mean Corpuscular HGB CONC 34.6 g/dL (32.0-36.0); Mean Corpuscular Hemoglobin 32.2 pg (27.0-31.0); Mean Corpuscular Volume 93.1 fL (78.0-98.0); Mean Platelet Volume 7.8 fL (7.4-10.4); Platelet Count 28 thou/uL (130-400); RBC Distribution Width 14.9 % (11.5-14.5); White Blood Cell (WBC) Count 10.4 thou/uL (4.8-10.8)
[2019-05-05 18:18] LABS: Band 19 % (5-11); Dohle Bodies SLIGHT; Lymphocytes 13 % (21-51); MDiff Complete? YES; Monocytes 2 % (0-10); Neutrophil 66 % (42-75); Platelet Morphology Comment Appears Decreased; Polychromasia SLIGHT = 2-3 cells (100X) (0-2/hpf)
== END 2019-05-05 11:05 | disposition home or self-care (01) ==
LOC: ONC/OP 09:26 → PACU-TCU 09:29 → ONC/OP 11:05
PROVIDERS: ATTEND Internal Medicine Hematology & Oncology
PROC: 30233R1 Transfusion of Nonautologous Platelets into Peripheral Vein, Percutaneous Approach (ICD-10-PCS; principal; 2019-05-05)
PROC: 30233N1 Transfusion of Nonautologous Red Blood Cells into Peripheral Vein, Percutaneous Approach (ICD-10-PCS; 2019-05-05)
DX: D64.9 Anemia, unspecified (principal); D69.6 Thrombocytopenia, unspecified; Z88.2 Allergy status to sulfonamides
CPT/HCPCS: 36415; 36430; 85025; 86850; 86900; 86901; P9016; P9035

== ENCOUNTER 2019-05-12 09:28 | Outpatient (CLI) | payer MEDICARE ==
--- NOTE | 2019-05-12 11:54 | CT ---
CT OF THE CHEST, ABDOMEN AND PELVIS WITH IV CONTRAST INDICATION: Bladder cancer COMPARISON: CT of the chest, abdomen and pelvis dated April 14, 2019 FINDINGS: CHEST: Lungs:No suspicious pulmonary nodule Heart and great vessels:Right chest wall port. Scattered vascular calcifications of the coronary [place] and thoracic aorta. Pleural space: No pneumothorax or effusion. Additional findings: ABDOMEN: Liver:Normal appearing. Spleen:Mildly enlarged measuring 12.9 cm. This is stable to the prior exam. This is moderately enlarg ed 2 comparison CTs dating back to 2013. Pancreas:Normal appearing. Adrenal Glands:Normal appearing. Kidneys:Stable horseshoe kidney. There is a stable 1.2 cm cyst off the superior aspect of the left re nal moiety. Left ureteral stent is unchanged in position. No hydronephrosis is demonstrated. Aorta:There are moderate atherosclerotic calcification involving the abdominal pelvic vasculature. Additional findings: There is an interval placement of infrarenal IVC filter. Pelvis: Bowel:Normal appearing. Bladder:There is stable mild wall thickening involving the bladder. Reproductive structures:Prostate measures 4.7 cm. Rectum and perirectal soft tissues:Normal appearing. Additional findings: The enlarged left external iliac chain lymph node has increased in size now gonzalo suring 2.9 x 1.3 cm where it previously measured 2.2 x 1.4 cm. The enlarged left inguinal lymph nodes have increased in size. One previously measuring 1.3 x 0.9 cm now measures 1.7 x 1.2 cm. An add itional enlarged left inguinal lymph node now measures 1.7 x 1.4 cm were previously measured 1.5 x 1.4 cm. Osseous structures: No acute osseous abnormality. There is scattered degenerative and osteoarthritic changes. IMPRESSION: 1. Worsening malignant lymphadenopathy of the left external iliac chain and left inguinal region. 2. Stable left ureteral stent without evidence of hydronephrosis. Stable diffuse mild wall thickening involving the bladder may be related to prior therapy. 3. Horseshoe kidney with stable cyst involving the superior aspect of the left renal moiety. 4. Interval placement of an IVC filter. 5. Stable mild splenomegaly
== END 2019-05-12 09:29 | disposition home or self-care (01) ==
LOC: SCSCT 09:28
PROVIDERS: ATTEND Internal Medicine Hematology & Oncology
DX: C67.9 Malignant neoplasm of bladder, unspecified (principal); R16.1 Splenomegaly, not elsewhere classified; R59.1 Generalized enlarged lymph nodes
CPT/HCPCS: 71260; 74177

== ENCOUNTER 2019-05-26 09:19 | Day surgery (SDC) | payer MEDICARE ==
[2019-05-26] MEDS ORDERED: Sodium Chloride 0.9% 20 ML ONE (09:33)
[2019-05-26] MEDS ORDERED: diphenhydrAMINE 25 MG CAP PO SCH (10:00)
[2019-05-26] MEDS ORDERED: Acetaminophen 500 MG TAB PO SCH (10:00)
[2019-05-26 13:23] LABS: Hemoglobin 7.3 g/dL (14.0-18.0)
[2019-05-26 16:48] VITALS: BP 134/74; TEMP 98
== END 2019-05-26 16:48 | disposition home or self-care (01) ==
LOC: ONC/OP 09:19
PROVIDERS: ATTEND Internal Medicine Hematology & Oncology
PROC: 30233R1 Transfusion of Nonautologous Platelets into Peripheral Vein, Percutaneous Approach (ICD-10-PCS; principal; 2019-05-26)
PROC: 30233N1 Transfusion of Nonautologous Red Blood Cells into Peripheral Vein, Percutaneous Approach (ICD-10-PCS; 2019-05-26)
DX: D64.9 Anemia, unspecified (principal); D69.6 Thrombocytopenia, unspecified
CPT/HCPCS: 36430; 36591; 85014; 85018; 86850; 86900; 86901; J1642; P9016; P9035; Q0163

== ENCOUNTER 2019-06-25 09:51 | Outpatient (CLI) | payer MEDICARE ==
--- NOTE | 2019-06-25 12:08 | CT ---
Exam: Chest CT with contrast Abdomen CT with contrast Pelvic CT with contrast HISTORY: Neoplasm of the urinary bladder/trigone of the bladder Correlation: None COMPARISON: 04/14/2019, 05/12/2019 FINDINGS: Chest CT: Mediastinum: No mass, lymphadenopathy or hematoma. Aorta: Normal caliber. No periaortic fat stranding. Heart: Normal heart size. No significant pericardial fluid. IVC: Note is made of an IVC filter Trachea and central bronchi: Patent Pleural spaces: No pleural fluid Right lung: No masses or consolidation Left lung:No masses or consolidation Pneumothorax: None Abdomen CT: Gallbladder: Surgically absentPortal vein: Patent Liver: Appropriate enhancement. Spleen: Appropriate enhancement Pancreas: Appropriate enhancement Adrenal glands: Appropriate enhancement Lymphadenopathy: No gastrohepatic, retrocrural or periportal lymphadenopathy Kidneys: Redemonstration of horseshoe kidney. No evidence of right-sided obstructive uropathy. There is a double J stent in the left ureter, unchanged in position. Bilaterally no hydronephrosis. Stable subcentimeter hypodensity emanating from the medial left renal cortex, measuring approximately 1 cm. Mesentery: No mass, lymphadenopathy, free air or free fluid Alimentary canal: No evidence of bowel obstruction. Ileocecal junction is unremarkable. Normal calibe r appendix. Contrast and fecal material in a nondistended, nondilated colon. Occasional diverticulum. No diverticulitis. Mucosal thickening of the left hemicolon likely due to in adequate distention Pelvis CT: Air in the urinary bladder may be iatrogenic. Correlate clinically. Stable urinary bladder wall thick ening. There is an enlarged necrotic lymph node along the left external iliac chain measuring 3.6 x 2.7 cm (previously measuring 1.9 x 3.0 cm). Stable enlargement of the prostate gland. Redemonstration of enlarged, necrotic left inguinal lymph nodes. Judicial [employer] Assistant lymph node measures 1 .5 x 1.0 and 1.7 x 1.5 cm. Previously, these lymph nodes measured 1.7 x 1.2 and 1.7 x 1.4 cm respectively. No appreciable change in the lymph nodes. There is a lymph node that currently measures 1.9 x 1.8 cm. This lymph node has increased in size and previously measured 1.2 x 0.7 cm. Osseous structures:Chronic changes in the lumbosacral junction as well as in the distal lumbar spine. Pseudoarthrosis of the inferior most lumbar type vertebra with the adjacent sacrum. IMPRESSION: 1. Enlarging, necrotic left external iliac lymph node. Interval enlargement of a lymph node in the l eft inguinal region. There is evidence of worsening malignant lymphadenopathy. 2. Stable left ureteral stent without obstructive uropathy. 3. Horseshoe kidney with stable left renal cyst. 4. Small focus of air in the urinary bladder, which may be degenerative. Correlate clinically. Stabl e urinary bladder wall thickening. Transcribed Date/Time: 06/25/2019 1:50 PM
[2019-06-25] MEDS ORDERED: Iopamidol 370 76% 100 ML VIAL ONE (16:13)
== END 2019-06-25 09:52 | disposition home or self-care (01) ==
LOC: CT 09:51
PROVIDERS: ATTEND Internal Medicine Hematology & Oncology
DX: C67.0 Malignant neoplasm of trigone of bladder (principal); R59.0 Localized enlarged lymph nodes; N28.1 Cyst of kidney, acquired; N32.89 Other specified disorders of bladder; Z96.0 Presence of urogenital implants
CPT/HCPCS: 71260; 74177; Q9967

== ENCOUNTER 2019-08-31 10:23 | Outpatient (CLI) | payer MEDICARE ==
[2019-08-31] MEDS ORDERED: ISOVUE-370 76%-LOCM 1 ML ONE (12:21)
--- NOTE | 2019-08-31 13:32 | CT ---
CT Abdomen Pelvis W Con History: Malignant neoplasm of trigone of the bladder. Comparison: CT June 2019 Findings: Lung bases are clear. No pericardial effusion. Satisfactory location of the left double-J u reteral stent. The large metastatic iliac lymph node has markedly increased in size measuring up to 5.5 similar, pre viously 3.5 cm. Possible occlusion left external iliac vein. Abnormal superficial left inguinal lymph nodes are similar. The liver and spleen are unremarkable as well as the pancreas. Inferior vena cava filter is in place. Incidental note is made of horseshoe kidney. No dilated loops of large or small bowel. No acute osseous abnormality. Impression: Progressive disease with enlarging left iliac lymph node.
== END 2019-08-31 10:24 | disposition home or self-care (01) ==
LOC: BICCT 10:23
PROVIDERS: ATTEND Internal Medicine Hematology & Oncology
DX: C67.0 Malignant neoplasm of trigone of bladder (principal); R59.0 Localized enlarged lymph nodes
CPT/HCPCS: 74177; Q9966

== ENCOUNTER 2019-10-29 08:24 | Outpatient (CLI) | payer MEDICARE ==
--- NOTE | 2019-10-29 08:59 | CT ---
ABDOMEN AND PELVIC CT SCAN WITH CONTRAST: HISTORY: Bladder malignancy. COMPARISON: 08/31/2019. FINDINGS: The visualized lung bases are clear. Liver: Unremarkable. Gallbladder: Absent. Pancreas: Unremarkable. Spleen: Unremarkable. Adrenal glands: Unremarkable. Kidneys: Stable horseshoe configuration of the kidney. Left ureteral stent is in place, without evide nce of obstructive uropathy. No solid or cystic renal mass. IVC filter is in place, similar in configuration. Bowel: No evidence for bowel obstruction. Urinary Bladder: Inflammatory perivesicular fat stranding is present. Stable left posterolateral defe ct of the urinary bladder, and interval development of prominent mural thickening of the urinary bladder asymmetric to the left. Adenopathy: There is redemonstration of left hemipelvic adenopathy involving iliac and inguinal chain s, with redemonstration of a dominant, necrotic mass of the left iliac chain, inseparable from the left iliopsoas muscle, with somewhat indistinct margins, although measuring approximately 4.8 cm in d iameter. 2.3 cm left inguinal lymph node has increased in volume. Free Air: No free air. Ascites: Mild scattered free fluid. Osseous structures: No acute osseous abnormalities. IMPRESSION: Findings indicate progressive malignancy of the pelvis, related to patient's history of bladder cance r, notably marked interval change of the urinary bladder with prominent mural thickening of the left lateral aspect with surrounding perivesicular fat stranding and progressive adenopathy of the le ft hemipelvis. Transcribed Date/Time: 10/29/2019 9:12 AM
== END 2019-10-29 08:25 | disposition home or self-care (01) ==
LOC: BICCT 08:24
PROVIDERS: ATTEND Internal Medicine Hematology & Oncology
DX: C67.9 Malignant neoplasm of bladder, unspecified (principal); C79.51 Secondary malignant neoplasm of bone; R59.0 Localized enlarged lymph nodes; N32.89 Other specified disorders of bladder
CPT/HCPCS: 74177

== ENCOUNTER 2019-11-17 21:01 | Inpatient (IN) | payer MEDICARE ==
[2019-11-17] MEDS ORDERED: Cefepime 1 GM VIAL ONE (21:53)
[2019-11-17 22:00] LABS: Hemoglobin 9.2 g/dL (14.0-18.0); Mean Corpuscular HGB CONC 33.1 g/dL (32.0-36.0); Mean Corpuscular Hemoglobin 32.1 pg (27.0-31.0); Mean Corpuscular Volume 97.3 fL (78.0-98.0); Mean Platelet Volume 7.5 fL (7.4-10.4); Platelet Count 442 thou/uL (130-400); RBC Distribution Width 11.8 % (11.5-14.5); Red Blood Cell (RBC) Count 2.87 mill/uL (4.70-6.10); White Blood Cell (WBC) Count 23.8 thou/uL (4.8-10.8)
--- NOTE | 2019-11-17 22:05 | RAD ---
Chest one view HISTORY: Chest pain. COMPARISON: 09/07/2019. FINDINGS: Cardiac silhouette is magnified by projection. Pulmonary vasculature are unremarkable. Medi astinum is midline. Right internal jugular Port-A-Cath in place. No lobar consolidation or evidence of pneumothorax. IMPRESSION: No active cardiopulmonary abnormalities are demonstrated.
[2019-11-17 22:20] LABS: Hypochromia SLIGHT = 6-15 cells (100X) (0-5/hpf); Lymphocytes 1 % (21-51); MDiff Complete? YES; Monocytes 19 % (0-10); Neutrophil 80 % (42-75); Platelet Morphology Comment Appears Adequate
[2019-11-17 22:26] LABS: ALT (SGPT) 19 U/L (8-55); AST (SGOT) 12 U/L (5-34); Albumin 3.8 g/dL (3.4-4.8); Alkaline Phosphatase 87 U/L (40-110); Anion Gap 16 mmol/L (10-20); BUN (Urea Nitrogen) 20 mg/dL (8.4-25.7); Bilirubin, Total 0.3 mg/dL (0.2-1.2); CK (CPK) 18 U/L (30-200); Calc. Creatinine Clearance 0 mL/min (70-130); Calcium 9.3 mg/dL (7.8-10.44); Carbon Dioxide 26 mmol/L (23-31); Chloride 100 mmol/L (98-107); Estimated GFR-MDRD 53; Globulin 2.5 g/dL (2.4-3.5); Glucose 87 mg/dL (80-115); Magnesium 1.7 mg/dL (1.6-2.6); Potassium 4.5 mmol/L (3.5-5.1); Protein, Total 6.3 g/dL (5.8-8.1); Sodium 137 mmol/L (136-145)
[2019-11-17 23:41] LABS: Bacteria/HPF None Seen HPF (None Seen); Bilirubin Negative (Negative); Blood, Urine Trace (Negative); Clarity Clear (Clear); Glucose, Urine (Dipstick) Normal (Negative); Leukocyte 25 Leu/uL (Negative); Nitrite Negative (Negative); Protein, Urine (Dipstick) Negative (Neg-Trace); Squamous Epithelial 0-3 HPF (0-3); Urobilinogen Normal mg/dL (Less than 2); WBC/HPF 0-3 HPF (0-3)
[2019-11-18] MEDS ORDERED: Senokot S 8.6-50 MG TAB PO PRN (02:11)
[2019-11-18] MEDS ORDERED: Acetaminophen 325 MG TAB PO PRN (02:11)
[2019-11-18] MEDS ORDERED: Bisacodyl 5 MG TAB PO PRN (02:11)
[2019-11-18 02:33] VITALS: BMI 31.7
[2019-11-18] MEDS ORDERED: Sodium Chloride 0.9% 1,000 ML IV SCH (02:34)
[2019-11-18] MEDS ORDERED: Zolpidem Tartrate 5 MG TAB PO PRN (04:05)
[2019-11-18] MEDS ORDERED: oxyCODONE/Acetaminophen 5 mg/325 mg Tablet PO PRN (04:05)
[2019-11-18 04:27] LABS: #Eosinphils 0.3 thou/uL (0.0-0.7); #Lymphocytes 1.6 thou/uL (1.20-3.40); #Monocytes 1.8 thou/uL (0.11-0.59); #Neutrophils 13.6 thou/uL (1.40-6.50); %Basophils 0.2 % (0.0-1.0); %Eosinophils 1.9 % (0.0-10.0); %Lymphocytes 9.2 % (21.0-51.0); %Monocytes 10.5 % (0.0-10.0); %Neutrophils 78.3 % (42.0-75.0); Mean Corpuscular HGB CONC 32.4 g/dL (32.0-36.0); Mean Corpuscular Hemoglobin 30.8 pg (27.0-31.0); Mean Corpuscular Volume 95.2 fL (78.0-98.0); Mean Platelet Volume 7.2 fL (7.4-10.4); Platelet Count 312 thou/uL (130-400); RBC Distribution Width 11.7 % (11.5-14.5); Red Blood Cell (RBC) Count 2.59 mill/uL (4.70-6.10); White Blood Cell (WBC) Count 17.4 thou/uL (4.8-10.8)
--- NOTE | 2019-11-18 04:31 | HP ---
CHIEF COMPLAINT: Generalized weakness. HISTORY OF PRESENT ILLNESS: The patient is a very pleasant 64-year-old male with bladder cancer, who presents to the hospital with complaints of generalized weakness going on for the past couple of weeks. The patient states that at baseline, he has been kind of feeling weak since he has been on chemotherapy, however, for the past couple of weeks that weakness has gotten worse. He also states that he has been trying to fight a cold, which his PCP did give him a penicillin shot and then was put on some antibiotics, but has been about a month, however, still continues to cough and has been bringing up some greenish yellow sputum. He denies any fevers, however, states that he has been also having chills for the past week. The patient states that today for the past couple of days actually, he has been very dizzy, felt very dizzy getting up and also bending over. The patient states that he has been feeling more weak since he has been on Keytruda, which was started about 3 months ago. The patient states that he has been taken off his blood pressure medications since his blood pressure has been normalized. He also states that he has not been eating very much, he eats about one meal a day and has been eating some fruits, but just only eats one meal a day. He denies any abdominal pain, any nausea, vomiting, any diarrhea. He states that sometimes he gets a little bit short of breath, however, denies any chest pain or chest tightness. The patient states that he has lost about 35 pounds since he started his treatment. PAST MEDICAL HISTORY: He has a history of Meniere disease. He has bladder cancer. He has a history of DVT with IVC filter. PAST SURGICAL HISTORY: He had a cholecystectomy. He had an IVC filter. He has a stent in his kidney for horseshoe kidney. He also has a port on his right side. SOCIAL HISTORY: He continues to smoke half a pack a day. Denies any alcohol use or drug use. He is a full code. Lives alone. FAMILY HISTORY: No history of heart disease or stroke. ALLERGIES: HE IS ALLERGIC TO SULFA. HOME MEDICATIONS: 1. Eliquis 5 mg twice a day. 2. Bupropion 200 mg twice a day. 3. OxyContin 30 mg t.i.d. 4. Ibuprofen 800 mg as needed. 5. Oxycodone 5 mg twice a day. 6. Ambien 10 mg daily. PHYSICAL EXAMINATION: VITAL SIGNS: Temperature of 99, 100% on room air, respiratory rate 24, and blood pressure 132/63. GENERAL: He is awake, alert, and oriented x3. Does not appear in distress. HEENT: Normocephalic and atraumatic. No lymphadenopathy noted. Pupils are equal and reactive to light. LUNGS: Clear to auscultation. No rhonchi or wheezes noted. CV: S1 and S2 present. No murmurs, rubs, or gallops. ABDOMEN: Soft and nontender. Bowel sounds are present x2. EXTREMITIES: His left lower extremity is more swollen than the right. Pedal pulses are present x2. However, no erythema is noted. NEUROVASCULAR: There are no focal deficits noted. SKIN: No cuts, lesions, or bruises noted. He does have a port to his right chest wall area. LABORATORY RESULTS: As following; WBCs of 23.8, hemoglobin of 9.2, hematocrit of 27.9. His platelets are 442. He does have neutrophilia of 80. Chemistry; sodium of 137, potassium of 4.5, BUN 20, creatinine 1.34. Troponin x1 is negative. His urine appeared pretty benign. His chest x-ray that was done in the ER did not show any acute abnormalities either. ASSESSMENT AND PLAN: The patient is a very pleasant 64-year-old male, who presents to the hospital with generalized weakness. 1. Generalized weakness, possibility of infectious etiology given his elevated white count. Blood cultures are done. His urine does not show any acute abnormalities. He denies any diarrhea. We will start him on some prophylactic antibiotics for now and also we will check a respiratory viral panel on him. He states that he has been having a cough and has been producing some yellow greenish sputum at times. We will also put him on some p.r.n. DuoNeb as needed. 2. Elevated leukocytosis. I have ordered a CT scan, the read is pending. However, upon my evaluation, it looks like he does have some moderate stool retention all over. We will await the final pending read. 3. Acute kidney injury. The patient is on ibuprofen. We will tell him to hold the ibuprofen. We will continue with his other narcotics. We will start him on some gentle hydration and continue to monitor him. 4. Dizziness. The patient will get orthostatics blood pressure. We will also check a TSH. We will also get an echocardiogram. 5. History of deep venous thrombosis. We will continue the Eliquis. Also, we will re-Doppler the lower extremity since his left lower extremity has gotten more swollen than the right and the patient states that initially it was, however, that resolved and now he is noticing more swelling in his left lower extremity. 6. Deep venous thrombosis prophylaxis. The patient is already on Eliquis. We will continue that. 7. Smoking session. The patient has agreed to wear a nicotine patch. Job ID: [id number]
[2019-11-18 04:42] LABS: Anion Gap 11 mmol/L (10-20); BUN (Urea Nitrogen) 17 mg/dL (8.4-25.7); Calc. Creatinine Clearance 87 mL/min (70-130); Calcium 9.1 mg/dL (7.8-10.44); Carbon Dioxide 25 mmol/L (23-31); Chloride 102 mmol/L (98-107); Estimated GFR-MDRD 66; Glucose 98 mg/dL (80-115); Potassium 4.3 mmol/L (3.5-5.1); Sodium 134 mmol/L (136-145)
[2019-11-18] MEDS ORDERED: Nicotine 7 MG PATCH TD SCH (06:00)
--- NOTE | 2019-11-18 07:56 | ULT ---
Bilateral lower extremity venous Doppler ultrasound: 11/18/2019 COMPARISON: Left venous ultrasound 02/20/2019 HISTORY: Bilateral lower extremity pain, edema, swelling, assess for DVT TECHNIQUE: Multiplanar grayscale sonographic imaging of the venous structures of bilateral lower extr emities obtained with color flow and spectral analysis FINDINGS: The right common femoral vein, greater saphenous vein, profunda femoral vein, femoral vein, popliteal vein, and posterior tibial vein are patent. No evidence for DVT on the right. On the left, the common femoral vein is only partially compressible, consistent with DVT. Left greate r saphenous vein appears patent. Left profunda femoral vein appears patent. The femoral vein on the left is partially compressible proximally. The mid left femoral vein and distal left femoral vein con tain clot consistent with DVT, occlusive in the mid left femoral vein region. Proximal aspect of the left popliteal vein is partially compressible, consistent with DVT as well. Distal aspect of left popliteal vein is patent as is the left posterior tibial vein. IMPRESSION: Extensive left lower extremity deep venous thrombosis. The performing bible teacher reports that this information was relayed to the patient's nurse, Gypsy, at the time of the examination on 11/18/2019.
[2019-11-18] MEDS: Cefepime 2 GM in Sodium Chloride 0.9% 100 ML IVPB SCH ×2 (08:33→20:11)
[2019-11-18] MEDS: Apixaban 5 MG TAB PO SCH ×2 (08:33→20:09)
[2019-11-18] MEDS: Bupropion 100 MG SR TAB PO SCH ×2 (08:34→20:09)
[2019-11-18] MEDS: Nicotine 7 MG PATCH TD SCH (08:35)
[2019-11-18] MEDS: Meclizine HCl 25 MG TAB PO SCH (08:38)
[2019-11-18] MEDS: Pregabalin 50 MG CAP PO SCH ×2 (08:38→20:10)
[2019-11-18] MEDS: Oxybutynin 5 MG TAB PO SCH ×2 (08:39→20:09)
[2019-11-18] MEDS ORDERED: Bupropion 150 MG SR TAB PO SCH (09:00)
[2019-11-18] MEDS ORDERED: Enoxaparin Sodium 40 MG/0.4 ML SYRINGE SC SCH (09:00)
[2019-11-18] MEDS ORDERED: Carvedilol 6.25 MG TAB PO SCH (09:00)
[2019-11-18] MEDS: oxyCODONE ER 10 MG TAB PO SCH ×2 (10:02→21:38)
--- NOTE | 2019-11-18 10:05 | PDOC.HOSPP ---
- Subjective Encounter Date: 11/18/19 Encounter Time: 10:03 Subjective: Mr. Sullivan was seen today in follow-up of generalized weakness. He says he feels better today, but has not gotten up to walk yet. He says he continues to have the cough, but says he is a smoker. He also notes that he has had the sensisation of not being able to fully empty his bladder, and feels pressure there. - Objective Vital Signs & Weight: Vital Signs (12 hours) Temp Pulse Resp BP BP BP Pulse Ox 11/18/19 08:00 98.4 F 68 16 96/51 L 118/58 L 111/57 L 97 11/18/19 04:47 97.7 F 75 16 105/55 L 95 11/18/19 03:15 97 11/18/19 02:32 98.8 F 76 16 118/57 L 97 Weight Weight 209 lb I&O: 11/17/19 11/18/19 11/19/19 06:59 06:59 06:59 Intake Total 250 389 Balance 250 389 Result Diagrams: 11/18/19 04:10 11/18/19 04:10 Additional Labs: Accuchecks 11/18/19 11/17/19 00:50 21:12 POC Glucose 130 H 102 Hospitalist ROS - Medication Medications: Active Medications Generic Name Dose Route Start Last Admin Trade Name Freq PRN Reason Stop Dose Admin Apixaban 5 mg 11/18/19 09:00 11/18/19 08:33 Eliquis PO 5 mg BID JOHN Administration Bupropion HCl 200 mg 11/18/19 09:00 11/18/19 08:34 Wellbutrin Sr PO 200 mg BID JOHN Administration Sodium Chloride 1,000 mls @ 100 mls/hr 11/18/19 02:34 11/18/19 03:07 Normal Saline 0.9% IV 11/18/19 12:30 1,000 mls .Q10H JOHN Administration Cefepime HCl 2 gm/ Sodium 100 mls @ 200 mls/hr 11/18/19 09:00 11/18/19 08:33 Chloride IVPB 100 mls Q12HR JOHN Administration Meclizine HCl 25 mg 11/18/19 09:00 11/18/19 08:38 Antivert PO 25 mg DAILY JOHN Administration Nicotine 7 mg 11/18/19 09:00 11/18/19 08:35 Nicoderm Patch TD 7 mg Q24HR JOHN Administration Oxybutynin Chloride 5 mg 11/18/19 09:00 11/18/19 08:39 Ditropan PO 5 mg BID JOHN Administration Pregabalin 100 mg 11/18/19 09:00 11/18/19 08:38 Lyrica PO 100 mg BID JOHN Administration Sodium Chloride 10 ml 11/18/19 02:34 11/18/19 03:09 Flush - Normal Saline IVF 10 ml PRN PRN Administration Saline Flush - Exam Eye: PERRL, anicteric sclera Heart: RRR, no murmur, no gallops, no rubs, normal peripheral pulses Respiratory: CTAB, no wheezes, no rales, no ronchi, normal chest expansion Gastrointestinal: soft, non-tender, non-distended, normal bowel sounds, no palpable masses, no hepatomegaly, no splenomegaly Extremities: no cyanosis, no clubbing, 1+ LE edema (left lower extremity) Hosp A/P (1) Generalized weakness Code(s): R53.1 - WEAKNESS Status: Acute (2) Dehydration Code(s): E86.0 - DEHYDRATION Status: Acute (3) Bladder cancer Status: Acute (4) Deep vein thrombosis (DVT) of left lower extremity Code(s): I82.402 - ACUTE EMBOLISM AND THOMBOS UNSP DEEP VEINS OF L LOW EXTREM Status: Acute (5) Stage IV bladder cancer Code(s): C67.9 - MALIGNANT NEOPLASM OF BLADDER, UNSPECIFIED Status: Acute (6) Hypertension Code(s): I10 - ESSENTIAL (PRIMARY) HYPERTENSION Status: Chronic (7) Bronchitis Code(s): J40 - BRONCHITIS, NOT SPECIFIED ACUTE OR CHRONIC Status: Acute - Plan * Generalized weakness- likely due to dehydration and mild bronchitis- continue IV antibiotics- and can likely de-escalate in a day or two- will check a procalcitonin * Urinary retention- this may be related to constipation, but in the setting of bladder cancer, will consult his Urologist * Bladder cancer- stable on treatment * DVT- this is an existing problem prior to admission. He is already on Eliquis , and has an IVC filter * Still await the official reading of the CT scan * Tobacco abuse- continue Nicotine replacement
--- NOTE | 2019-11-18 10:33 | CT ---
PRELIMINARY REPORT/[facility]/EMERGENCY AFTER HOURS PROCEDURE EXAM: CT Abdomen and Pelvis Without Intravenous Contrast CLINICAL HISTORY: ER 8... 64M reports to ED c/o abnormal labs, including low WBC and hypoglycemia. PMHx bladder cancer, kidney stent. Pt reports LE pain (worsening x3 week), tiredness, weakness, urinary retention, SOB. Surgical hx of CYST REMOVED FROM COCCYX, cholecystectomy. Bladder sx, KIDNEY STENT (2019). TECHNIQUE: Axial computed tomography images of the abdomen and pelvis without intravenous contrast. Multiplanar reformats. CONTRAST: None. COMPARISON: None provided. FINDINGS: LUNG BASES: No basilar airspace consolidation or pleural effusion. LIVER: Unremarkable. GALLBLADDER AND BILE DUCTS: Cholecystectomy. No ductal dilation. PANCREAS: Unremarkable. SPLEEN: Unremarkable. ADRENAL GLANDS: Unremarkable. KIDNEYS, URETERS, AND BLADDER: Horseshoe kidney. Left nephroureteral stent in unremarkable position. Left bladder wall thickening. No nephrolithiasis. STOMACH AND BOWEL: No obstruction. No wall thickening. Copious stool in the right colon. APPENDIX: No CT evidence for appendicitis. PERITONEUM: No free fluid. No free air. LYMPH NODES: Bulky left external iliac lymphadenopathy. Left inguinal lymphadenopathy. REPRODUCTIVE: Unremarkable as visualized. VASCULATURE: TrapEase IVC filter. No aortic aneurysm. Prominent atherosclerosis. ABDOMINAL WALL AND SOFT TISSUES: Unremarkable. BONES: No fracture or suspicious osseous abnormality. Degenerative disc disease with foraminal narrow ing and spinal stenosis at several levels. IMPRESSION: No bowel obstruction or perforation. Horseshoe kidney with unremarkable left nephroureteral stent. Bulky left external iliac lymphadenopathy. Left inguinal lymphadenopathy. Constipation cannot be entirely excluded. ELECTRONICALLY SIGNED BY: Mariposa King MD Nov 18, 2019 1:46:20 AM CHARGE ENTRY This report is intended for review by the ordering physician only, in accordance of law. If you recei ve this report in error, please call [facility] at [phone]. FINAL REPORT CT ABDOMEN AND PELVIS WITHOUT CONTRAST: I agree with preliminary report given by Dr. Mariposa King of [facility]. There has been interval worsening of the lymphadenopathy since 12/29/2018. The left external iliac lym phadenopathy measures 5.6 cm and the left inguinal lymphadenopathy measures 2.1 cm. Transcribed Date/Time: 11/18/2019 10:39 AM
--- NOTE | 2019-11-18 16:28 | CON ---
DATE OF CONSULTATION: REASON FOR CONSULT: Weakness and bladder cancer. HISTORY OF PRESENT ILLNESS: Mr. 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 He underwent treatment with MVAC, then carboplatin and gemcitabine and currently is on Keytruda. He has been on Keytruda since June [address] scan in October showed stable disease. He had a left lower extremity DVT in February 2019 and has been on Eliquis since that time. He has had chronic pain and pelvic lymphadenopathy since then. He is now seeing Pain Management, who is treating his pain with OxyContin twice a day 30 mg and with p.r.n. oxycodone. Over the last couple of weeks, the patient has gotten progressively weaker. He does not feel like doing much of anything. He is on antidepression medication. He has no appetite. He has lost about 15 pounds since September. He presented to his primary care yesterday with cough and weakness. He had leukocytosis and was admitted to this facility for further treatment. He has been started on empiric antibiotics. Abdominal and pelvis CT was performed, which was compared to a scan of greater than a year ago. He did have lower extremity venogram, which showed extensive lower extremity DVT. No evidence for DVT on the right. His CT scan in October shows some bladder thickening. He is seeing Dr. De Dios routinely. Currently, he denies any complaints. His pain is controlled. He has no fever or shortness of breath. PAST MEDICAL HISTORY: 1. 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 2. Left lower extremity DVT with pelvic lymphadenopathy. 3. Erectile dysfunction. 4. Hypertension. 5. Depression. PAST SURGICAL HISTORY: 1. Bladder surgery. 2. Gallbladder surgery. 3. IVC filter placed. 4. [employer]iPort. ALLERGIES: SULFA. HOME MEDICATIONS: 1. Wellbutrin 150 mg b.i.d. 2. Eliquis 5 mg daily. 3. Ibuprofen 800 mg p.r.n. 4. Nexium 20 mg daily. 5. Oxycodone/acetaminophen 5/325 one to two every 6 hours p.r.n. 6. OxyContin 30 mg b.i.d. 7. Zolpidem 10 mg daily. FAMILY HISTORY: Mother with breast cancer. SOCIAL HISTORY: He is . He has 3 children. He has a 51 pack-year history of smoking. Social drinker and no illicit drug use. REVIEW OF SYSTEMS: A 10-point review of systems is negative except for noted in HPI. PHYSICAL EXAMINATION: VITAL SIGNS: Temperature is 98.4, pulse is 68, respiratory rate 16, blood pressure is 111/57. He is 97% on room air. GENERAL: This is a well-developed, well-nourished male, in no acute distress. HEENT: Normocephalic, atraumatic. Pupils are equal and reactive to light. NECK: Supple. CV: Regular rate and rhythm. LUNGS: Clear. ABDOMEN: Soft and nontender. Slightly obese. EXTREMITIES: He has 1+ left lower extremity edema. SKIN: No rash. HEMATOLOGICAL: No petechiae or purpura. NEUROLOGIC: Nonfocal. PERTINENT LABORATORY AND X-RAY DATA: Current WBCs are 17.4, hemoglobin 8.0, hematocrit 24.6, platelet count is 312,000, he has 78% neutrophils, 9% lymphocytes. Sodium is 134, potassium 4.3, chloride 102, CO2 is 25, BUN is 17, creatinine 1.12, calcium 9.1, magnesium 1.7, bilirubin 0.3, AST is 12, ALT is 19, alkaline phosphatase is 87. Serum total protein is 6.3, albumin 3.8, globulin 2.5. TSH is normal. Urine showed no bacteria. Radiology per HPI. ASSESSMENT: 1. 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 2. Chronic left lower extremity edema with pelvic lymphadenopathy. 3. Depression. 4. Chronic leukocytosis. 5. Possible bronchitis. DISCUSSION: The patient has been started on empiric antibiotics for bronchitis. He should limit steroids as he is on immunotherapy. He has a chronic leukocytosis with a white count ranging generally from 12 to 17. He is back at baseline. He admits to having depression and let his primary care decide if his medications needs to be adjusted. He should continue Eliquis and his pain medications. Encouraged to stop smoking. His next treatment is on November 27. We will follow along with his hospitalization. Thank you for the consult. Job ID: [id number]
[2019-11-19 03:49] LABS: #Eosinphils 0.3 thou/uL (0.0-0.7); #Lymphocytes 1.8 thou/uL (1.20-3.40); #Monocytes 1.6 thou/uL (0.11-0.59); #Neutrophils 14.1 thou/uL (1.40-6.50); %Basophils 0.2 % (0.0-1.0); %Eosinophils 1.8 % (0.0-10.0); %Lymphocytes 10.1 % (21.0-51.0); %Monocytes 9.1 % (0.0-10.0); %Neutrophils 78.8 % (42.0-75.0); Mean Corpuscular HGB CONC 31.8 g/dL (32.0-36.0); Mean Corpuscular Hemoglobin 30.6 pg (27.0-31.0); Mean Corpuscular Volume 96.1 fL (78.0-98.0); Mean Platelet Volume 6.8 fL (7.4-10.4); Platelet Count 308 thou/uL (130-400); RBC Distribution Width 11.7 % (11.5-14.5); Red Blood Cell (RBC) Count 2.62 mill/uL (4.70-6.10); White Blood Cell (WBC) Count 17.9 thou/uL (4.8-10.8)
[2019-11-19] MEDS: Apixaban 5 MG TAB PO SCH ×2 (09:11→21:07)
[2019-11-19] MEDS: Cefepime 2 GM in Sodium Chloride 0.9% 100 ML IVPB SCH ×2 (09:12→21:11)
[2019-11-19] MEDS: Bupropion 100 MG SR TAB PO SCH ×2 (09:12→21:07)
[2019-11-19] MEDS: Nicotine 7 MG PATCH TD SCH (09:13)
[2019-11-19] MEDS: Pregabalin 50 MG CAP PO SCH ×2 (09:14→21:09)
[2019-11-19] MEDS: Oxybutynin 5 MG TAB PO SCH ×2 (09:14→21:09)
[2019-11-19] MEDS: Meclizine HCl 25 MG TAB PO SCH (09:15)
[2019-11-19] MEDS: oxyCODONE ER 10 MG TAB PO SCH ×2 (09:30→21:07)
--- NOTE | 2019-11-19 09:30 | PDOC.MOPN ---
Interval History: no complaints, sitting at bedside eating breakfast. - Vital Signs Vital Signs: Vital Signs (12 hours) Temp Pulse Resp BP BP BP Pulse Ox 11/19/19 08:00 99.1 F 80 18 116/59 L 106/51 L 113/57 L 96 11/19/19 04:00 98.8 F 82 16 101/50 L 96 11/18/19 23:57 98.9 F 16 110/59 L 95 Weight Admit Weight 209 lb Weight 209 lb - Physical Exam General: Alert, Oriented x3, No acute distress HEENT: Atraumatic, PERRLA, EOMI, Mucous membr. moist/pink Lungs: Other (scattered wheezing) Cardiovascular: Regular rate, Normal S1, Normal S2, No murmurs, Gallops, Rubs Abdomen: Normal bowel sounds Extremities: No clubbing, No cyanosis, Normal pulses, No tenderness/swelling, Other (LLE edema, chronic) Skin: No rashes, No breakdown, No significant lesion Neurological: Normal speech Psych/Mental Status: Mental status NL, Mood NL - Labs Result Diagrams: 11/19/19 03:40 11/18/19 04:10 Lab results: Laboratory Results - last 24 hr 11/19/19 03:40: WBC 17.9 H, RBC 2.62 L, Hgb 8.0 L, Hct 25.1 L, MCV 96.1, MCH 30.6, MCHC 31.8 L, RDW 11.7, Plt Count 308, MPV 6.8 L, Neutrophils % 78.8 H, Lymphocytes % 10.1 L, Monocytes % 9.1, Eosinophils % 1.8, Basophils % 0.2, Neutrophils # 14.1 H, Lymphocytes # 1.8, Monocytes # 1.6 H, Eosinophils # 0.3, Basophils # 0.0 11/18/19 16:45: POC Glucose 86 11/18/19 10:30: Procalcitonin 0.25 Status: lab reviewed by me A/P - Problem (1) Generalized weakness Current Visit: Yes Code(s): R53.1 - WEAKNESS Status: Acute (2) Bladder cancer Current Visit: No Status: Acute (3) Deep vein thrombosis (DVT) of left lower extremity Current Visit: No Code(s): I82.402 - ACUTE EMBOLISM AND THOMBOS UNSP DEEP VEINS OF L LOW EXTREM Status: Acute (4) Stage IV bladder cancer Current Visit: No Code(s): C67.9 - MALIGNANT NEOPLASM OF BLADDER, UNSPECIFIED Status: Acute - Plan Plan: low grade temp last night, continue abx Urinary retention, chronic. Dr. De Dios consulted Leukocytosis, at baseline for the past several weeks. likely home tomorrow if afebrile
--- NOTE | 2019-11-19 11:53 | PDOC.HOSPP ---
- Subjective Encounter Date: 11/19/19 Encounter Time: 11:51 Subjective: Mr. Sullivan was seen today in follow-up of fever and elevated WBC count. He says he feels about the same, he continues to feel like he is retaining urine. - Objective Vital Signs & Weight: Vital Signs (12 hours) Temp Pulse Resp BP BP BP Pulse Ox 11/19/19 08:00 99.1 F 80 18 116/59 L 106/51 L 113/57 L 96 11/19/19 04:00 98.8 F 82 16 101/50 L 96 11/18/19 23:57 98.9 F 16 110/59 L 95 Weight Admit Weight 209 lb Weight 209 lb I&O: 11/18/19 11/19/19 11/20/19 06:59 06:59 06:59 Intake Total 250 2899 Balance 250 2899 Result Diagrams: 11/19/19 03:40 11/18/19 04:10 Additional Labs: Accuchecks 11/18/19 16:45 POC Glucose 86 Hospitalist ROS - Medication Medications: Active Medications Generic Name Dose Route Start Last Admin Trade Name Freq PRN Reason Stop Dose Admin Acetaminophen 650 mg 11/18/19 02:11 11/18/19 20:08 Tylenol PO 650 mg Q4H PRN Administration Headache/Fever/Mild Pain (1-3) Apixaban 5 mg 11/18/19 09:00 11/19/19 09:11 Eliquis PO 5 mg BID JOHN Administration Bupropion HCl 200 mg 11/18/19 09:00 11/19/19 09:12 Wellbutrin Sr PO 200 mg BID JOHN Administration Cefepime HCl 2 gm/ Sodium 100 mls @ 200 mls/hr 11/18/19 09:00 11/19/19 09:12 Chloride IVPB 100 mls Q12HR JOHN Administration Meclizine HCl 25 mg 11/18/19 09:00 11/19/19 09:15 Antivert PO 25 mg DAILY JOHN Administration Nicotine 7 mg 11/18/19 09:00 11/19/19 09:13 Nicoderm Patch TD 7 mg Q24HR JOHN Administration Oxybutynin Chloride 5 mg 11/18/19 09:00 11/19/19 09:14 Ditropan PO 5 mg BID JOHN Administration Oxycodone HCl 30 mg 11/18/19 09:00 11/19/19 09:30 Oxycontin PO 30 mg BID JOHN Administration Oxycodone/Acetaminophen 1 tab 11/18/19 04:05 11/18/19 18:37 Percocet 5/325 PO 1 tab Q6H PRN Administration Moderate to Severe Pain (6-10) Pregabalin 100 mg 11/18/19 09:00 11/19/19 09:14 Lyrica PO 100 mg BID JOHN Administration Sodium Chloride 10 ml 11/18/19 02:34 11/18/19 20:08 Flush - Normal Saline IVF 10 ml PRN PRN Administration Saline Flush - Exam Eye: PERRL Heart: RRR, no murmur, no gallops, no rubs, normal peripheral pulses Respiratory: CTAB, no wheezes, no rales, no ronchi, normal chest expansion Gastrointestinal: soft, non-tender, non-distended, normal bowel sounds, no palpable masses, no hepatomegaly Extremities: 1+ LE edema, 2+ LE edema (left lower extremity) Hosp A/P (1) Generalized weakness Code(s): R53.1 - WEAKNESS Status: Acute (2) Dehydration Code(s): E86.0 - DEHYDRATION Status: Acute (3) Bladder cancer Status: Acute (4) Deep vein thrombosis (DVT) of left lower extremity Code(s): I82.402 - ACUTE EMBOLISM AND THOMBOS UNSP DEEP VEINS OF L LOW EXTREM Status: Acute (5) Stage IV bladder cancer Code(s): C67.9 - MALIGNANT NEOPLASM OF BLADDER, UNSPECIFIED Status: Acute (6) Hypertension Code(s): I10 - ESSENTIAL (PRIMARY) HYPERTENSION Status: Chronic (7) Bronchitis Code(s): J40 - BRONCHITIS, NOT SPECIFIED ACUTE OR CHRONIC Status: Acute - Plan * Generalized weakness- likely due to dehydration and mild bronchitis- continue IV antibiotics- and can likely de-escalate in a day or two- will check a procalcitonin * Urinary retention-he continues to have this sensation- post void residual is 374ml- he may require dykes- will discuss with Dr. De Dios * Will send his urine from the ER for culture ( if the sample is still available ) * Bladder cancer- stable on treatment * DVT- this is an existing problem prior to admission. He is already on Eliquis , and has an IVC filter * Will await final blood l cultures results before discharge
[2019-11-19 16:13] LABS: Ref Lab Test Ordered RVP; Reference Lab Name LABCORP
--- NOTE | 2019-11-19 17:32 | PRG ---
DATE OF SERVICE: 11/19/2019 SUBJECTIVE: The patient is currently admitted for sepsis workup. Urinalysis on admission was negative for signs of infection. He has been having sensation of incomplete emptying and was seen in my office last week, at which point, he seemed to be emptying well. Today, a bladder scan was checked showing residual of 347. The patient has been under the impression that he was taking tamsulosin. However, in speaking with his daughter, she has been reviewing his medications and does not think he is taking this medication. OBJECTIVE: ABDOMEN: Soft, bladder barely palpable, nontender. No flank tenderness. ASSESSMENT AND PLAN: Urinary retention. I have advised that the Bauman catheter replaced and we will start him on tamsulosin. I have already sent a prescription of tamsulosin to his pharmacy. I will see him next Saturday or for a void trial in my office. Job ID: [id number]
[2019-11-20 05:08] LABS: #Basophils 0.1 thou/uL (0.0-0.2); #Eosinphils 0.2 thou/uL (0.0-0.7); #Lymphocytes 1.8 thou/uL (1.20-3.40); #Monocytes 2.1 thou/uL (0.11-0.59); #Neutrophils 14.7 thou/uL (1.40-6.50); %Basophils 0.3 % (0.0-1.0); %Eosinophils 0.9 % (0.0-10.0); %Lymphocytes 9.3 % (21.0-51.0); %Neutrophils 78.5 % (42.0-75.0); Hemoglobin 8.2 g/dL (14.0-18.0); Mean Corpuscular Hemoglobin 31.3 pg (27.0-31.0); Mean Corpuscular Volume 94.8 fL (78.0-98.0); Mean Platelet Volume 7.2 fL (7.4-10.4); Platelet Count 353 thou/uL (130-400); RBC Distribution Width 11.7 % (11.5-14.5); Red Blood Cell (RBC) Count 2.61 mill/uL (4.70-6.10); White Blood Cell (WBC) Count 18.8 thou/uL (4.8-10.8)
[2019-11-20] MEDS: Apixaban 5 MG TAB PO SCH (08:46)
[2019-11-20] MEDS: Oxybutynin 5 MG TAB PO SCH (08:47)
[2019-11-20] MEDS: Meclizine HCl 25 MG TAB PO SCH (08:47)
[2019-11-20] MEDS: Pregabalin 50 MG CAP PO SCH (08:48)
[2019-11-20] MEDS: Bupropion 100 MG SR TAB PO SCH (08:49)
[2019-11-20 08:52] VITALS: BP 114/58; TEMP 98.5
[2019-11-20] MEDS: Cefepime 2 GM in Sodium Chloride 0.9% 100 ML IVPB SCH (08:52)
[2019-11-20] MEDS: Nicotine 7 MG PATCH TD SCH (08:53)
[2019-11-20] MEDS: oxyCODONE ER 10 MG TAB PO SCH (09:40)
--- NOTE | 2019-11-20 11:19 | PDOC.HOSPP ---
- Subjective Encounter Date: 11/20/19 Encounter Time: 11:17 Subjective: Mr. Sullivan was seen today in follow-up of bladder cancer. He does not have any complaints. - Objective Vital Signs & Weight: Vital Signs (12 hours) Temp Pulse Resp BP BP BP Pulse Ox 11/20/19 08:49 98.5 F 81 18 137/56 L 114/58 L 116/58 L 97 11/20/19 08:00 97 Weight Admit Weight 209 lb Weight 209 lb I&O: 11/19/19 11/20/19 11/21/19 06:59 06:59 06:59 Intake Total 2899 2009 Output Total 2950 Balance 2899 -940 Result Diagrams: 11/20/19 04:57 11/20/19 04:57 Hospitalist ROS - Medication Medications: Active Medications Generic Name Dose Route Start Last Admin Trade Name Freq PRN Reason Stop Dose Admin Acetaminophen 650 mg 11/18/19 02:11 11/18/19 20:08 Tylenol PO 650 mg Q4H PRN Administration Headache/Fever/Mild Pain (1-3) Apixaban 5 mg 11/18/19 09:00 11/20/19 08:46 Eliquis PO 5 mg BID JOHN Administration Bupropion HCl 200 mg 11/18/19 09:00 11/20/19 08:49 Wellbutrin Sr PO 200 mg BID JOHN Administration Cefepime HCl 2 gm/ Sodium 100 mls @ 200 mls/hr 11/18/19 09:00 11/20/19 08:52 Chloride IVPB 100 mls Q12HR JOHN Administration Meclizine HCl 25 mg 11/18/19 09:00 11/20/19 08:47 Antivert PO 25 mg DAILY JOHN Administration Nicotine 7 mg 11/18/19 09:00 11/20/19 08:53 Nicoderm Patch TD 7 mg Q24HR JOHN Administration Oxybutynin Chloride 5 mg 11/18/19 09:00 11/20/19 08:47 Ditropan PO 5 mg BID JOHN Administration Oxycodone HCl 30 mg 11/18/19 09:00 11/20/19 09:40 Oxycontin PO 30 mg BID JOHN Administration Oxycodone/Acetaminophen 1 tab 11/18/19 04:05 11/18/19 18:37 Percocet 5/325 PO 1 tab Q6H PRN Administration Moderate to Severe Pain (6-10) Pregabalin 100 mg 11/18/19 09:00 11/20/19 08:48 Lyrica PO 100 mg BID JOHN Administration Senna/Docusate Sodium 2 tab 11/18/19 02:11 11/20/19 04:48 Senokot S PO 2 tab BIDPRN PRN Administration Constipation Sodium Chloride 10 ml 11/18/19 02:34 11/19/19 21:11 Flush - Normal Saline IVF 10 ml PRN PRN Administration Saline Flush - Exam Eye: PERRL Heart: RRR, no murmur, no gallops, no rubs, normal peripheral pulses Respiratory: CTAB, no wheezes, no rales, no ronchi, normal chest expansion, no tachypnea, normal percussion Gastrointestinal: soft, non-tender, non-distended, normal bowel sounds, no palpable masses, no hepatomegaly Extremities: no cyanosis, no clubbing, 1+ LE edema (swelling in the left leg) Hosp A/P (1) Generalized weakness Code(s): R53.1 - WEAKNESS Status: Acute (2) Dehydration Code(s): E86.0 - DEHYDRATION Status: Acute (3) Bladder cancer Status: Acute (4) Deep vein thrombosis (DVT) of left lower extremity Code(s): I82.402 - ACUTE EMBOLISM AND THOMBOS UNSP DEEP VEINS OF L LOW EXTREM Status: Acute (5) Stage IV bladder cancer Code(s): C67.9 - MALIGNANT NEOPLASM OF BLADDER, UNSPECIFIED Status: Acute (6) Hypertension Code(s): I10 - ESSENTIAL (PRIMARY) HYPERTENSION Status: Chronic (7) Bronchitis Code(s): J40 - BRONCHITIS, NOT SPECIFIED ACUTE OR CHRONIC Status: Acute - Plan * Generalized weakness- limproved- procalcitonin level was low, and therfore unlikely a bacterial process, his blood cultures are negative, and he is feeling much better * Stable for discharge home, off antibiotics
--- NOTE | 2019-11-20 13:29 | PDOC.MOPN ---
Interval History: complains of trembling, poss secondary to pain meds - Vital Signs Vital Signs: Vital Signs (12 hours) Temp Pulse Resp BP BP BP Pulse Ox 11/20/19 08:49 98.5 F 81 18 137/56 L 114/58 L 116/58 L 97 11/20/19 08:00 97 Weight Admit Weight 209 lb Weight 209 lb - Physical Exam General: Alert, Oriented x3, No acute distress HEENT: Atraumatic, PERRLA, EOMI, Mucous membr. moist/pink Lungs: Clear to auscultation, Normal air movement Cardiovascular: Regular rate, Normal S1, Normal S2, No murmurs, Gallops, Rubs Abdomen: Normal bowel sounds, Soft, No tenderness, No hepatospenomegaly, No masses Extremities: No clubbing, No cyanosis, No edema, Normal pulses, No tenderness/ swelling Neurological: Normal gait, Normal speech, Strength at 5/5 X4 ext, Normal tone, Sensation intact, Cranial nerves 3-12 NL, Reflexes 2+ Psych/Mental Status: Mental status NL, Mood NL - Labs Result Diagrams: 11/20/19 04:57 11/20/19 04:57 Lab results: Laboratory Results - last 24 hr 11/20/19 04:57: WBC 18.8 H, RBC 2.61 L, Hgb 8.2 L, Hct 24.7 L, MCV 94.8, MCH 31.3 H, MCHC 33.0, RDW 11.7, Plt Count 353, MPV 7.2 L, Neutrophils % 78.5 H, Lymphocytes % 9.3 L, Monocytes % 11.0 H, Eosinophils % 0.9, Basophils % 0.3, Neutrophils # 14.7 H, Lymphocytes # 1.8, Monocytes # 2.1 H, Eosinophils # 0.2, Basophils # 0.1 11/20/19 04:57: Creatinine 1.11, Estimated GFR (MDRD) 66 Status: lab reviewed by me A/P - Problem (1) Generalized weakness Current Visit: Yes Code(s): R53.1 - WEAKNESS Status: Acute (2) Bladder cancer Current Visit: No Status: Acute (3) Deep vein thrombosis (DVT) of left lower extremity Current Visit: No Code(s): I82.402 - ACUTE EMBOLISM AND THOMBOS UNSP DEEP VEINS OF L LOW EXTREM Status: Acute (4) Stage IV bladder cancer Current Visit: No Code(s): C67.9 - MALIGNANT NEOPLASM OF BLADDER, UNSPECIFIED Status: Acute - Plan Plan: 1. ok to go home today 2. follow-up next week as scheduled. 3. continue home medications for pain
--- NOTE | 2019-11-23 00:35 | PQF ---
[employer] Crystal Reports Winform TomHESHAM SCHWARTZ LAURO BUCKLEY MD [id number] [id number] CLINICAL DOCUMENTATION CLARIFICATION FORM: POST DISCHARGE Addendum to original discharge summary date: ____ Late entry note date: __ DATE: 11/23/18 ATTN:Lauro Alvarado Please exercise your independent, professional judgment in responding to the clarification form. Clinical indicators are provided on the bottom of this form for your review Can you please further clarify if Sepsis is ruled in or ruled out? Sepsis [ ] Ruled in diagnosis [ ] Continue to treat [ ] Resolved [ ] Ruled out diagnosis [ ] Cannot rule out diagnosis [ ] Other diagnosis [ ] Unable to determine In addition, please specify: Present on Admission (POA): [ ] Yes [ ] No [ ] Unable to determine For continuity of documentation, please document condition throughout progress notes and discharge summary. Thank You. CLINICAL INDICATORS - SIGNS / SYMPTOMS / LABS ED Provider pg.4- undifferentiated sepsis PN 11/19- the patient is currently admitted for sepsis work up Hospitalist PN 11/20 pg.5- Generalized weakness- improved- prolactin level was low and therefore unlikely a bacterial process, his blood culture are negative Laboratory- WBC 13.8h, 17.4H, 17.9H, 18.8H H and P pg.1- complaints of generalized weakness going for the past couple of weeks Hospitalist PN pg.4- Generalized weakness-likely due to dehydration and mild bronchitis- continue IV antibiotics RISK FACTORS Bronchitis- Hospitalist PN pg.5 Hypertension- Hospitalist PN pg.5 Stage 4 bladder cancer Hospitalist PN pg.5 MERARY- H and P pg.3 TREATMENTS Chest X ray 11/17 IV fluids- MAR Abdomen/Pelvis CT Cefepime Hcl 1gm IV- MAR Vancomycin 1gm IV- MAR (This form is maintained as a part of the permanent medical record) 2014 [employer] All Rights Reserved [email or web address] [not provided] SANCHEZD
--- NOTE | 2019-11-23 00:39 | PQF ---
[employer] Crystal Reports Winform Viewer HESHAM SCHWARTZ TONI MD [id number] [id number] CLINICAL DOCUMENTATION CLARIFICATION FORM: POST DISCHARGE Addendum to original discharge summary date: ____ Late entry note date: __ DATE: 11/23/19 ATTN: Lauro Alvarado Please exercise your independent, professional judgment in responding to the clarification form. Clinical indicators are provided on the bottom of this form for your review Can you please further clarify the etiology of Generalized weakness? Please check appropriate box(s): [ ] Acute Bronchitis [ ] Dehydration [ ] MERARY [ ] Other diagnosis please specify [ ] Unable to determine In addition, please specify: Present on Admission (POA): [ ] Yes [ ] No [ ] Unable to determine For continuity of documentation, please document condition throughout progress notes and discharge summary. Thank You. CLINICAL INDICATORS - SIGNS / SYMPTOMS / LABS H and P pg.1- complaints of generalized weakness going for the past couple of weeks Hospitalist PN pg.4- Generalized weakness-likely due to dehydration and mild bronchitis- continue IV antibiotics PN 11/19- the patient is currently admitted for sepsis work up Hospitalist PN 11/20 pg.5- Generalized weakness- improved- prolactin level was low and therefore unlikely a bacterial process, his blood culture are negative Laboratory: Creatinine- 1.34H, 1.12, 1.11 RISK FACTORS Bronchitis- Hospitalist PN pg.5 Hypertension- Hospitalist PN pg.5 Stage 4 bladder cancer Hospitalist PN pg.5 MERARY- H and P pg.3 TREATMENTS: Chest X ray 11/17 IV fluids- MAR Abdomen/Pelvis CT Cefepime Hcl 1gm IV- MAR Vancomycin 1gm IV- MAR (This form is maintained as a part of the permanent medical record) 2014 [employer]. All Rights Reserved [email or web address] [not provided] DANETTE
--- NOTE | 2019-11-24 14:55 | DIS ---
DATE OF ADMISSION: 11/19/2019 DATE OF DISCHARGE: 11/20/2019 DISCHARGE DISPOSITION: Home. DISCHARGE DIAGNOSES: 1. Sepsis syndrome, probably viral. 2. Generalized weakness secondary to sepsis syndrome. 3. History of bladder cancer. 4. History of deep venous thrombosis. 5. Status post inferior vena cava filter. 6. Probable benign prostatic hyperplasia. DISCHARGE MEDICATIONS: 1. Flomax 0.4 mg p.o. daily. 2. Ambien 10 mg at bedtime. 3. Lyrica 100 mg twice daily. 4. Oxycodone 30 mg twice daily. 5. Oxybutynin 5 mg p.o. twice daily. 6. Ibuprofen 800 mg t.i.d. 7. Bupropion 200 mg extended release twice daily. 8. Eliquis 5 mg twice a day. IMAGING DURING HOSPITAL STAY: The patient had a CT scan of the abdomen and pelvis showing no bowel obstruction or perforation. 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 Some bulky left inguinal adenopathy. The patient also had an echocardiogram and that showed some E/A flow reversal suggestive of diastolic dysfunction as well as an EF, which was estimated at 55% to 60%. CODE STATUS: Full code. ALLERGIES: TO SULFA. HOSPITAL COURSE: Mr. Sullivan is a pleasant 64-year-old gentleman, who was admitted to the hospital with generalized weakness. When he was evaluated in the ER, he was found to have leukocytosis. CT scan of the abdomen was essentially negative for any new findings other than extensive inguinal adenopathy. He did mention some difficulty voiding and postvoid residual was obtained, which was approximately 374 mL. For this reason, his urologist was consulted. He was started on Flomax and a Bauman catheter was placed. He will see Dr. De Dios in the outpatient setting to get a voiding trial and possible removal of the catheter at a later date. During his hospital stay, blood cultures were obtained, these were negative. Procalcitonin level was also low, which was consistent with a viral process instead of a bacterial process and his senior contracts administrator noted that he has a persistently elevated white blood cell count in the outpatient setting. For this reason, he will not be discharged home on antibiotics and will need close outpatient followup with his primary care physician and also with Dr. De Dios as instructed. Job ID: [id number]
== END 2019-11-20 13:53 | disposition home health service (06) | DRG 948 ==
LOC: ERS 21:01 → ERHOLD 11-18 00:50 → ONC 11-18 02:29 → OBSVTOIN 11-19 13:33
PROVIDERS: ADMIT Internal Medicine; ATTEND Internal Medicine
DX: R53.1 Weakness (principal); N17.9 Acute kidney failure, unspecified; I82.512 Chronic embolism and thrombosis of left femoral vein; J20.9 Acute bronchitis, unspecified; E86.0 Dehydration; C67.9 Malignant neoplasm of bladder, unspecified; H81.09 Meniere's disease, unspecified ear; F17.210 Nicotine dependence, cigarettes, uncomplicated; I10 Essential (primary) hypertension; N52.9 Male erectile dysfunction, unspecified; F32.9 Major depressive disorder, single episode, unspecified; D72.829 Elevated white blood cell count, unspecified; F41.9 Anxiety disorder, unspecified; R33.9 Retention of urine, unspecified; Z79.01 Long term (current) use of anticoagulants; Z90.49 Acquired absence of other specified parts of digestive tract; Z79.899 Other long term (current) drug therapy; Z88.2 Allergy status to sulfonamides; N40.0 Benign prostatic hyperplasia without lower urinary tract symptoms; Z86.718 Personal history of other venous thrombosis and embolism
CPT/HCPCS: 36415; 36416; 71045; 74176; 80048; 81003; 81015; 82550; 82565; 83735; 84145; 84443; 84484; 85025; 87040; 87086; 93005; 93306; 93970; 96361; 96365; 96367; J0692; J1642; J3370; J3490; J8597

== ENCOUNTER 2019-12-17 10:10 | Day surgery (SDC) | payer MEDICARE ==
[2019-12-17] MEDS ORDERED: diphenhydrAMINE 25 MG CAP PO SCH (11:15)
[2019-12-17] MEDS ORDERED: Acetaminophen 500 MG TAB PO SCH (11:15)
[2019-12-17] MEDS ORDERED: Sodium Chloride 0.9% 20 ML ONE (15:47)
[2019-12-17 15:54] VITALS: BP 99/56; TEMP 98.1
[2019-12-17] MEDS ORDERED: Potassium Chloride 20 MEQ/100 ML PREMIX BAG IVPB SCH (16:30)
== END 2019-12-17 17:53 | disposition home or self-care (01) ==
LOC: ONC/OP 10:10
PROVIDERS: ATTEND Internal Medicine Hematology & Oncology
PROC: 30233N1 Transfusion of Nonautologous Red Blood Cells into Peripheral Vein, Percutaneous Approach (ICD-10-PCS; principal; 2019-12-17)
DX: D64.9 Anemia, unspecified (principal); D69.6 Thrombocytopenia, unspecified; Z88.2 Allergy status to sulfonamides
CPT/HCPCS: 36415; 36430; 80053; 82248; 82728; 83615; 84100; 84436; 84443; 84550; 86850; 86900; 86901; 96365; J1642; J3480; P9016; Q0163

== ENCOUNTER 2020-01-01 07:25 | Outpatient (CLI) | payer MEDICARE ==
[2020-01-01 11:29] LABS: Hemoglobin 8.9 g/dL (14.0-18.0); Mean Corpuscular HGB CONC 33.8 g/dL (32.0-36.0); Mean Corpuscular Hemoglobin 31.7 pg (27.0-31.0); Mean Corpuscular Volume 93.6 fL (78.0-98.0); Mean Platelet Volume 7.8 fL (7.4-10.4); Platelet Count 437 thou/uL (130-400); Red Blood Cell (RBC) Count 2.82 mill/uL (4.70-6.10); White Blood Cell (WBC) Count 32.8 thou/uL (4.8-10.8)
[2020-01-01 12:03] LABS: Anion Gap 16 mmol/L (10-20); BUN (Urea Nitrogen) 22 mg/dL (8.4-25.7); Calc. Creatinine Clearance 0 mL/min (70-130); Carbon Dioxide 20 mmol/L (23-31); Chloride 101 mmol/L (98-107); Estimated GFR-MDRD 45; Glucose 94 mg/dL (80-115); Sodium 134 mmol/L (136-145)
[2020-01-01 12:04] LABS: Potassium 2.7 mmol/L (3.5-5.1)
--- NOTE | 2020-01-01 16:47 | EKG ---
Test Reason : Blood Pressure : / mmHG Vent. Rate : 067 BPM Atrial Rate : 067 BPM P-R Int : 172 ms QRS Dur : 106 ms QT Int : 418 ms P-R-T Axes : 002 -12 007 degrees QTc Int : 441 ms Sinus rhythm with sinus arrhythmia with occasional Premature ventricular complexes Nonspecific ST abnormality Abnormal ECG When compared with ECG of 17-NOV-2019 21:57, Premature ventricular complexes are now Present Minimal criteria for Anterior infarct are no longer Present ST now depressed in Anterior leads Confirmed by DR. Kaleigh MITTAL ([id number]) on 01/01/2020 4:47:26 PM Referred By: LAVELL Confirmed By:DR. Kaleigh MITTAL
== END 2020-01-01 07:26 | disposition home or self-care (01) ==
LOC: LABBT 07:25
PROVIDERS: ATTEND Urology
DX: Z01.818 Encounter for other preprocedural examination (principal); N13.5 Crossing vessel and stricture of ureter without hydronephrosis
CPT/HCPCS: 80048; 85027; 93005; 93010

== ENCOUNTER 2020-01-04 09:20 | Outpatient (CLI) | payer MEDICARE ==
[2020-01-04 10:12] LABS: Bacteria/HPF None Seen HPF (None Seen); Bilirubin Negative (Negative); Blood, Urine Negative (Negative); Clarity Clear (Clear); Glucose, Urine (Dipstick) Normal (Negative); Leukocyte Negative Leu/uL (Negative); Nitrite Negative (Negative); Protein, Urine (Dipstick) 30 mg/dL (Neg-Trace); RBC/HPF 0-3 HPF (0-3); Squamous Epithelial None Seen HPF (0-3); Urobilinogen Normal mg/dL (Less than 2); WBC/HPF 0-3 HPF (0-3)
== END 2020-01-04 09:21 | disposition home or self-care (01) ==
LOC: LABBT 09:20
PROVIDERS: ATTEND Urology
DX: Z01.812 Encounter for preprocedural laboratory examination (principal); N13.5 Crossing vessel and stricture of ureter without hydronephrosis
CPT/HCPCS: 36415; 81001; 84132; 87086